=== PATIENT | female | born 1960 | race Caucasian/White ===

== ENCOUNTER 2017-01-26 15:50 | Observation (INO) | payer OTHER ==
[~2017-01-26] VITALS: Ht 160 cm; Wt 71.5 kg
[~2017-01-26 15:50] MED LIST: KETO1SOL3 EACH EYE; LACT20SO4 PO; LANTUS2P SC; LASI20TA PO; NEUR800T PO; TAB-TAB PO; TRAZ50TA4 PO; ULTR50TA PO
[2017-01-26 15:51] VITALS: BP 158/69; PULSE 80; RESP 20; TEMP 97.9; O2SAT 99
--- NOTE | 2017-01-26 16:20 | PD ---
HPI Chief Complaint: Abnormal Results Time Seen by Provider: 16:20 Travel History International Travel<30 days: No Contact w/Intl Traveler<30days: No Traveled to known affect area: No History of Present Illness HPI 56-year-old female with PMH of hypertension, cirrhosis, CKD, [place] presents to the ED for evaluation of "two weeks" history of edema and dyspnea on exertion. The patient denies fevers, cough, chest pain, palpitations, abdominal pain, changes in bowel habits, dysuria or back pain. She endorses a 10-18 pound weight gain over the past 2 weeks which she attributes to excess water. She takes 1 mg of Bumex daily. She states that she was told that her potassium was 3.0 today. She was seen at the [facility] and instructed to report to the ED for further evaluation. PFSH Past Medical History Anemia: Yes Arthritis: Yes (LOWER BACK AND HIP) Asthma: No Blood Disorders: No Anxiety: No Depression: Yes Heart Rhythm Problems: Yes ("MURMUR") Cancer: No Cardiovascular Problems: Yes High Cholesterol: No Chest Pain: No Congestive Heart Failure: Yes ("EARLY STAGES") Cirrhosis: Yes COPD: Yes ("EARLY STAGES") Cerebrovascular Accident: No Diabetes: Yes Diminished Hearing: Yes (TALHA DIMINISHED) Diverticulitis: Yes Endocrine: Yes Gastrointestinal Disorders: Yes (portal hypertensive gastropathy) GERD: Yes Genitourinary: Yes (HEP C, CIRRHOSIS, ASCITES, GALLSTONES, DIVERTICULITIS, ) Headaches: Yes Hepatitis: Yes (HEP C/cured) Hiatal Hernia: No Hypertension: Yes Immune Disorder: No Musculoskeletal: No Neurologic: No Psychiatric: Yes Reproductive: No Respiratory: Yes Immunizations Current: Yes Migraines: No Myocardial Infarction: Yes Seizures: No Sleep Apnea: No Thyroid Disease: No Ulcer: No Menopausal: Yes Past Surgical History Gynecologic Surgery: Yes (HYSTERECTOMY) Hysterectomy: Yes Tonsillectomy: Yes Other Surgery: Yes Social History Alcohol Use: No Tobacco Use: No Substance Use: No Allergies-Medications (Allergen,Severity, Reaction): Coded Allergies: Codeine (Unverified Allergy, Severe, Itching, 01/26/17) Reported Meds & Prescriptions Reported Meds & Active Scripts Active Reported Trazodone (Trazodone HCl) 50 Mg Tab 50 Mg PO HS PRN Tramadol (Tramadol HCl) 50 Mg Tab 50 Mg PO HS Potassium 75 Mg Tab 20 Meq PO DAILY Lactulose Liq (Lactulose (Encephalopathy) Liq) 19 Gm/15 Ml Soln 10 Gm PO BID Gabapentin 800 Mg Tab 800 Mg PO HS Folic Acid 5 Mg Cap 1 Mg PO DAILY Dst Plus Zeb (Diclofenac Sodium (Topical)) 1 % Kit 1 Gm BID D 1000 (Cholecalciferol) 1,000 Unit Chew 1 Tab PO BID Bumetanide 1 Mg Tab 1 Mg PO BID Amlodipine (Amlodipine Besylate) 10 Mg Tab 10 Mg PO DAILY Review of Systems Except as stated in HPI: all other systems reviewed are Neg Physical Exam Narrative GENERAL: Well-nourished, well-developed pleasant white female in no acute distress. SKIN: Focused skin assessment warm/dry. HEAD: Normocephalic. EYES: No scleral icterus. No injection or drainage. NECK: Supple, trachea midline. No JVD or lymphadenopathy. CARDIOVASCULAR: Regular rate and rhythm without murmurs, gallops, or rubs. 2+ DP and radial pulses bilaterally. RESPIRATORY: Breath sounds clear and equal bilaterally. No accessory muscle use. GASTROINTESTINAL: Abdomen soft, non-tender, nondistended. Active bowel sounds. MUSCULOSKELETAL: No cyanosis. 2+ pitting edema to the knee bilaterally. Homans sign negative bilaterally. BACK: Nontender without obvious deformity. No CVA tenderness. Data Data Last Documented VS Vital Signs Date Time Temp Pulse Resp B/P Pulse Ox O2 Delivery O2 Flow Rate FiO2 01/26/17 17:55 75 20 174/74 98 Room Air 01/26/17 15:51 97.9 Orders Complete Blood Count With Diff (01/26/17 16:33) Comprehensive Metabolic Panel (01/26/17 16:33) B-Type Natriuretic Peptide (01/26/17 16:33) Act Partial Throm Time (Ptt) (01/26/17 16:33) Prothrombin Time / Inr (Pt) (01/26/17 16:33) Magnesium (Mg) (01/26/17 16:33) Ckmb (Isoenzyme) Profile (01/26/17 16:33) Troponin I (01/26/17 16:33) Urinalysis - C+S If Indicated (01/26/17 16:33) Iv Access Insert/Monitor (01/26/17 16:33) Electrocardiogram (01/26/17 16:33) Ecg Monitoring (01/26/17 16:33) Oximetry (01/26/17 16:33) Chest, Single Ap (01/26/17 16:33) CKMB (01/26/17 16:30) CKMB% (01/26/17 16:30) Potassium Chloride (Kcl) (01/26/17 17:45) Bumetanide Inj (Bumex Inj) (01/26/17 18:00) Admit Order (Ed Use Only) (01/26/17 18:00) Labs Laboratory Tests Test 01/26/17 16:30 White Blood Count 8.0 TH/MM3 Red Blood Count 3.44 MIL/MM3 Hemoglobin 10.8 GM/DL Hematocrit 30.5 % Mean Corpuscular Volume 88.7 FL Mean Corpuscular Hemoglobin 31.6 PG Mean Corpuscular Hemoglobin 35.6 % Concent Red Cell Distribution Width 13.6 % Platelet Count 300 TH/MM3 Mean Platelet Volume 8.0 FL Neutrophils (%) (Auto) 62.7 % Lymphocytes (%) (Auto) 22.5 % Monocytes (%) (Auto) 10.6 % Eosinophils (%) (Auto) 2.9 % Basophils (%) (Auto) 1.3 % Neutrophils # (Auto) 5.0 TH/MM3 Lymphocytes # (Auto) 1.8 TH/MM3 Monocytes # (Auto) 0.9 TH/MM3 Eosinophils # (Auto) 0.2 TH/MM3 Basophils # (Auto) 0.1 TH/MM3 CBC Comment DIFF FINAL Differential Comment Prothrombin Time 11.5 SEC Prothromb Time International 1.0 RATIO Ratio Activated Partial 26.4 SEC Thromboplast Time Sodium Level 141 MEQ/L Potassium Level 3.2 MEQ/L Chloride Level 105 MEQ/L Carbon Dioxide Level 23.5 MEQ/L Anion Gap 13 MEQ/L Blood Urea Nitrogen 28 MG/DL Creatinine 1.74 MG/DL Estimat Glomerular Filtration 30 ML/MIN Rate Random Glucose 90 MG/DL Calcium Level 10.9 MG/DL Magnesium Level 2.1 MG/DL Total Bilirubin 0.8 MG/DL Aspartate Amino Transf 62 U/L (AST/SGOT) Alanine Aminotransferase 14 U/L (ALT/SGPT) Alkaline Phosphatase 86 U/L Total Creatine Kinase 249 U/L Creatine Kinase MB 2.5 NG/ML Creatine Kinase MB % 1.0 % Troponin I LESS THAN 0.02 NG/ML B-Type Natriuretic Peptide 152 PG/ML Total Protein 7.2 GM/DL Albumin 2.9 GM/DL [facility] Medical Decision Making Medical Screen Exam Complete: Yes Emergency Medical Condition: Yes Interpretation(s) EKG rate 71, sinus rhythm. CA interval 139, QRS 97, QTC 440. Normal axis. No acute ST elevations or depressions. Reviewed by Dr. Reed. Differential Diagnosis Acute on chronic renal failure versus CHF versus PE versus pneumonia versus ascites versus ACS versus cardiomyopathy versus other Narrative Course 56-year-old female with PMH of hypertension, cirrhosis, CKD, [place] presents to the ED for evaluation of "two weeks" history of edema and dyspnea on exertion. The patient denies fevers, cough, chest pain, palpitations, abdominal pain, changes in bowel habits, dysuria or back pain. She endorses a 10-18 pound weight gain over the past 2 weeks which she attributes to excess water. She takes 1 mg of Bumex daily. She states that she was told that her potassium was 3.0 today. She was seen at the [facility] and instructed to report to the ED for further evaluation. Vitals reviewed. Physical exam reveals a pleasant white female in no acute distress. Chest clear to auscultation bilaterally. Abdomen soft, nontender. No CVA tenderness. There is 2+ pitting edema to the knee in bilateral lower extremities. Patient was placed on continuous monitoring. IV was established. CBC: WBC 8.0, hemoglobin 10.8. INR 1.0. Potassium 3.2. Calcium 10.9. CMP: BUN 28, creatinine 1.74. Review of the record reveals this is improved from the patient's baseline. Cardiac enzymes negative 1. BNP 152. CXR: No acute disease per radiology read. EKG as above. Patient is followed by Dr. Nguyen, [place]. Patient was administered 40 meq potassium by mouth and 1 mg Bumex IV. I discussed the patient with Dr. Reed. He recommends admission to the the medicine service for further evaluation, including serial cardiac enzymes, EKGs and LARISSA. Call placed to [facility]. I spoke with Dr. Yarbrough who agrees to accept the patient to the medical service for observation. Please see medicine notes for disposition. Diagnosis Primary Impression: Lower extremity edema Qualified Code: R60.0 - Bilateral edema of lower extremity Additional Impression: Dyspnea on exertion Mary Mcneil Jan 26, 2017 16:20
[2017-01-26] MEDS ORDERED: DICL1KIT3 (16:45)
[2017-01-26] MEDS ORDERED: D 10CHW PO (16:45)
[2017-01-26] MEDS ORDERED: POTA75TA PO (16:45)
[2017-01-26] MEDS ORDERED: BUME1TAB PO (16:45)
[2017-01-26] MEDS ORDERED: AMLO10TA2 PO (16:45)
[2017-01-26] MEDS ORDERED: FOLI5CAP PO (16:45)
[2017-01-26] MEDS ORDERED: GABA800T PO (16:45)
[2017-01-26] MEDS ORDERED: LACT10SO27 PO (16:45)
[2017-01-26] MEDS ORDERED: TRAZ50TA12 PO (16:48)
[2017-01-26] MEDS ORDERED: TRAM50TA PO (16:48)
[2017-01-26 16:51] VITALS: PULSE 80; RESP 22
[2017-01-26 17:01] LABS: BASOPHIL # 0.1 TH/MM3 (0-0.2); BASOPHIL % 1.3 % (0.0-2.0); EOSINOPHIL # 0.2 TH/MM3 (0-0.4); EOSINOPHIL % 2.9 % (0.0-4.0); HEMATOCRIT 30.5 % (35.0-46.0); HEMO FLAGS DIFF FINAL; LYMPH % 22.5 % (9.0-44.0); LYMPHOCYTE # 1.8 TH/MM3 (1.0-4.8); MEAN CELL VOLUME 88.7 FL (80.0-100.0); MEAN CORPUSCULAR HEMOGLOBIN 31.6 PG (27.0-34.0); MEAN CORPUSCULAR HGB CONC 35.6 % (32.0-36.0); MONO % 10.6 % (0.0-8.0); NEUT % 62.7 % (16.0-70.0); PLATELET COUNT 300 TH/MM3 (150-450); RED BLOOD COUNT 3.44 MIL/MM3 (4.00-5.30); RED CELL DISTRIBUTION WIDTH 13.6 % (11.6-17.2)
[2017-01-26 17:22] LABS: ALKALINE PHOSPHATASE 86 U/L (45-117); CREATINE KINASE 249 U/L (26-192); TOTAL BILIRUBIN ADULT 0.8 MG/DL (0.2-1.0)
[2017-01-26 17:26] LABS: ALT (GPT) 14 U/L (10-53); ANION GAP 13 MEQ/L (5-15); AST (GOT) 62 U/L (15-37); BICARBONATE 23.5 MEQ/L (21.0-32.0); BLOOD UREA NITROGEN 28 MG/DL (7-18); CHLORIDE 105 MEQ/L (98-107); GLOMERULAR FILTRATION RATE 30 ML/MIN (>89); MAGNESIUM 2.1 MG/DL (1.5-2.5); POTASSIUM 3.2 MEQ/L (3.5-5.1); SODIUM (NA) 141 MEQ/L (136-145)
[2017-01-26 17:27] LABS: APTT (PATIENT) 26.4 SEC (24.3-30.1); PROTHROMBIN TIME - PATIENT 11.5 SEC (9.8-11.6)
--- NOTE | 2017-01-26 17:29 | RADRPT ---
EXAM DATE/TIME: 01/26/2017 16:54 [facility] COMPARISON: CHEST SINGLE AP, January 13, 2016, 13:01. INDICATIONS : Short of breath MEDICAL HISTORY : liver failure. SURGICAL HISTORY : None. ENCOUNTER: Initial ACUITY: 1 day PAIN SCORE: 0/10 LOCATION: Bilateral chest FINDINGS: A single view of the chest demonstrates the lungs to be symmetrically aerated without evidence of mas s, infiltrate or effusion. The cardiomediastinal contours are unremarkable. Osseous structures are intact. CONCLUSION: No acute disease. Joshua Jimenez MD on January 26, 2017 at 17:26 Board Certified Radiologist. This report was verified electronically.
[2017-01-26 17:35] LABS: CKMB 2.5 NG/ML (0.5-3.6)
[2017-01-26] MEDS ORDERED: POTASSIUM CHLORIDE 20 MEQ CONTROLLED RELEASE TAB PO ONE (17:45)
[2017-01-26 17:55] VITALS: BP 174/74; PULSE 75; RESP 20; O2SAT 98
[2017-01-26] MEDS ORDERED: BUMETANIDE INJ 1 MG/4 ML VIAL IV PUSH ONE (18:00)
--- NOTE | 2017-01-26 18:28 | HHI.HP ---
HPI Service [facility] Primary Care Physician [facility] Admission Diagnosis lower extremity edema, dyspnea on exertion Diagnoses: Chief Complaint: lower extremity edema and dyspean on exertion. Travel History International Travel<30 Days: No Contact w/Intl Traveler <30 Da: No Traveled to Known Affected Are: No History of Present Illness This is a pleasant 56 year-old female past medical history of hypertension, history of heart murmur, cirrhosis of the liver complicated by portal hypertensive gastropathy, chronic hepatitis C treated with Harv[facility] who presented with lower extremity edema and exertional dyspnea that happened 2 weeks ago. Patient stated that she had this happen in the past and it was due to her cirrhosis of the liver. She stated that this was gradual. Denied any change in diet. Denies any chest pain, palpitations, lightheadedness or dizziness. Patient saw PCP today in which she was sent to the emergency department due to abnormal EKG in which she was asymptomatic and lower extremity edema. Patient stated that since she started amlodipine she also noticed a lower extremity edema. Patient was on lisinopril prior and stated that she was taken off of this. Patient also stated that her PCP was going to put her back on spironolactone. Patient also stated that she had a right ear infection and was treated with Augmentin with no improvement. Patient does have allergies. She stated that her right ear sounds muffled but denies any pain or any fevers. Review of Systems Constitutional: DENIES: Diaphoretic episodes, Fatigue, Fever, Weight gain, Weight loss, Chills, Dizziness, Change in appetite, Night Sweats Endocrine: DENIES: Abnorml menstrual pattern, Heat/cold intolerance, Polydipsia , Polyuria, Polyphagia Eyes: DENIES: Blurred vision, Diplopia, Eye inflammation, Eye pain, Vision loss , Photosensitivity, Double Vision Ears, nose, mouth, throat: COMPLAINS OF: Ear Pain, DENIES: Tinnitus, Hearing loss, Vertigo, Nasal discharge, Oral lesions, Throat pain, Hoarseness, Running Nose, Epistaxis, Sinus Pain, Toothache, Odynophagia Respiratory: COMPLAINS OF: Shortness of breath, DENIES: Apneas, Cough, Snoring , Wheezing, Hemoptysis, Sputum production Cardiovascular: COMPLAINS OF: Lower Extremity Edema, DENIES: Chest pain, Palpitations, Syncope, Dyspnea on Exertion, PND, Orthopnea, Claudication Gastrointestinal: DENIES: Abdominal pain, Black stools, Bloody stools, Constipation, Diarrhea, Nausea, Vomiting, Difficulty Swallowing, Anorexia Genitourinary: DENIES: Abnormal vaginal bleeding, Dysmenorrhea, Dyspareunia, Sexual dysfunction, Urinary frequency, Urinary incontinence, Urgency, Hematuria , Dysuria, Nocturia, Vaginal discharge Musculoskeletal: DENIES: Joint pain, Muscle aches, Stiffness, Joint Swelling, Back pain, Neck pain Integumentary: DENIES: Abnormal pigmentation, Pruritus, Rash, Nail changes, Breast masses, Breast skin changes, Nipple discharge Hematologic/lymphatic: DENIES: Bruising, Lymphadenopathy Immunologic/allergic: DENIES: Eczema, Urticaria Neurologic: DENIES: Abnormal gait, Headache, Localized weakness, Paresthesias, Seizures, Speech Problems, Tremor, Poor Balance Psychiatric: DENIES: Anxiety, Confusion, Mood changes, Depression, Hallucinations, Agitation, Suicidal Ideation, Homicidal Ideation, Delusions Past Family Social History Past Medical History Hypertension, history of heart murmur, cirrhosis of liver, chronic hepatitis, portal hypertensive gastropathy, osteoporosis, chronic fatigue syndrome, chronic back pain, diverticular disease, type 2 diabetes insulin-dependent, anemia Past Surgical History Recent kidney biopsy in November. Hysterectomy. Reported Medications Trazodone (Trazodone HCl) 50 Mg Tab 50 Mg PO HS PRN Tramadol (Tramadol HCl) 50 Mg Tab 50 Mg PO HS Potassium 75 Mg Tab 20 Meq PO DAILY Lactulose Liq (Lactulose (Encephalopathy) Liq) 19 Gm/15 Ml Soln 10 Gm PO BID Gabapentin 800 Mg Tab 800 Mg PO HS Folic Acid 5 Mg Cap 1 Mg PO DAILY Dst Plus Zeb (Diclofenac Sodium (Topical)) 1 % Kit 1 Gm BID D 1000 (Cholecalciferol) 1,000 Unit Chew 1 Tab PO BID Bumetanide 1 Mg Tab 1 Mg PO BID Amlodipine (Amlodipine Besylate) 10 Mg Tab 10 Mg PO DAILY Allergies: Coded Allergies: Codeine (Unverified Allergy, Severe, Itching, 01/26/17) Active Ordered Medications Current Medications Potassium Chloride (KCl) 40 meq ONCE ONCE PO Last administered on 01/26/17 18 :06; Start 01/26/17 at 17:45; Stop 01/26/17 at 17:46; Status DC Bumetanide (Bumex Inj) 1 mg ONCE ONCE IV PUSH Last administered on 01/26/17t 18:05; Start 01/26/17 at 18:00; Stop 01/26/17 at 18:11; Status DC Family History Sister has history of heart murmur. Otherwise family members are relatively healthy. Social History Denied any tobacco, alcohol, or illicit drug use. Physical Exam Vital Signs Vital Signs Date Time Temp Pulse Resp B/P Pulse Ox O2 Delivery O2 Flow Rate FiO2 01/26/17 17:55 75 20 174/74 98 Room Air 01/26/17 16:51 80 22 Room Air 01/26/17 16:26 01/26/17 15:51 97.9 80 20 158/69 99 Room Air Physical Exam GENERAL: This is a well-nourished, well-developed patient, in no apparent distress. SKIN: No rashes, ecchymoses or lesions. Cool and dry. HEAD: Atraumatic. Normocephalic. No temporal or scalp tenderness. EYES: Pupils equal round and reactive. Extraocular motions intact. No scleral icterus. No injection or drainage. ENT: Nose without bleeding, purulent drainage or septal hematoma. Throat without erythema, tonsillar hypertrophy or exudate. Uvula midline. Airway patent. NECK: Trachea midline. No JVD or lymphadenopathy. Supple, nontender, no meningeal signs. CARDIOVASCULAR: Regular rate and rhythm positive 3/6 systolic heart murmur. RESPIRATORY: Clear to auscultation. Breath sounds equal bilaterally. No wheezes , rales, or rhonchi. GASTROINTESTINAL: Abdomen soft, non-tender, nondistended. No hepato-splenomegaly , or palpable masses. No guarding. MUSCULOSKELETAL: Extremities without clubbing, cyanosis, . Lower extremity +2 pitting edema up to the knees. No joint tenderness, effusion, or edema noted. No calf tenderness. Negative Homans sign bilaterally. NEUROLOGICAL: Awake and alert. Cranial nerves II through XII intact. Motor and sensory grossly within normal limits. Five out of 5 muscle strength in all muscle groups. Normal speech. Laboratory Laboratory Tests Test 01/26/17 16:30 White Blood Count 8.0 Red Blood Count 3.44 Hemoglobin 10.8 Hematocrit 30.5 Mean Corpuscular Volume 88.7 Mean Corpuscular Hemoglobin 31.6 Mean Corpuscular Hemoglobin 35.6 Concent Red Cell Distribution Width 13.6 Platelet Count 300 Mean Platelet Volume 8.0 Neutrophils (%) (Auto) 62.7 Lymphocytes (%) (Auto) 22.5 Monocytes (%) (Auto) 10.6 Eosinophils (%) (Auto) 2.9 Basophils (%) (Auto) 1.3 Neutrophils # (Auto) 5.0 Lymphocytes # (Auto) 1.8 Monocytes # (Auto) 0.9 Eosinophils # (Auto) 0.2 Basophils # (Auto) 0.1 CBC Comment DIFF FINAL Differential Comment Prothrombin Time 11.5 Prothromb Time International 1.0 Ratio Activated Partial 26.4 Thromboplast Time Sodium Level 141 Potassium Level 3.2 Chloride Level 105 Carbon Dioxide Level 23.5 Anion Gap 13 Blood Urea Nitrogen 28 Creatinine 1.74 Estimat Glomerular Filtration 30 Rate Random Glucose 90 Calcium Level 10.9 Magnesium Level 2.1 Total Bilirubin 0.8 Aspartate Amino Transf 62 (AST/SGOT) Alanine Aminotransferase 14 (ALT/SGPT) Alkaline Phosphatase 86 Total Creatine Kinase 249 Creatine Kinase MB 2.5 Creatine Kinase MB % 1.0 Troponin I LESS THAN 0.02 B-Type Natriuretic Peptide 152 Total Protein 7.2 Albumin 2.9 Result Diagram: 01/26/17 1630 01/26/17 1630 Imaging Last Impressions Chest X-Ray 01/26/17 1633 Signed Impressions: Service Date/Time: December 16:54 - CONCLUSION: No acute disease. Joshua Jimenez MD Assessment and Plan Assessment and Plan 56-year-old female with history of cirrhosis of the liver due to hepatitis C, portal hypertensive gastropathy, type 2 diabetes insulin-dependent, hypertension who presented with lower extreme edema and exertional dyspnea Lower extremity edema/exertional dyspnea -BNP is 152, chest x-rays negative. Patient had echo about a year ago that was relatively normal with ejection fraction of 60-65%. -Albumin is decreased at 2.8. Troponin negative. Labs reviewed and all relatively within normal limits of her baseline. -I'm suspecting symptoms are more from her cirrhosis of the liver. -Home Bumex is 1 mg twice a day. Patient given a dose of 1 mg IV in the ED. Will continue with bumex 1 mg IV twice a day since patient is symptomatic and lower extremity edema is severe. -Strict ins and outs. -We'll need to monitor creatinine. We'll also repeat her echo. Cirrhosis of the liver secondary to hepatitis C, complicated by portal hypertensive gastropathy -Resume home medication. Will also start patient on spironolactone 50 mg by mouth twice a day. Type 2 diabetes insulin-dependent -Patient is on Lantus 10 units at bedtime. -Will substitute with Levemir 10 units at bedtime and put patient on insulin sliding scale. Patient will also be on the hypoglycemia protocol. Hypertension -Uncontrolled. Due to lower extremity edema and some association with amlodipine. Will DC amlodipine. Patient will be on spironolactone. In the past she has had Lasix in which she was taken off of that most likely secondary to her renal failure. -May consider hydralazine versus clonidine if blood pressure is not better control. Right earache -Fluid noted in middle ear but no infection noted. Status post treatment with Augmentin. -Most likely secondary to her allergies. We'll give her Flonase and Claritin. Chronic fatigue syndrome, chronic back pain, osteoporosis -Resume home medication. Chronic kidney disease -Patient is at her baseline. During her last admission her kidneys were around 2.1. -Strict ins and outs. Avoid nephrotoxins. Continue to monitor creatinine. DVT prophylaxis -Heparin renally dosed. Code Status full Discussed Condition With patient and her sister. Elisa Olivares MD Jan 26, 2017 18:28
[2017-01-26] MEDS ORDERED: ONDANSETRON HCL 4 MG/2 ML VIAL IVP PRN (18:30)
[2017-01-26] MEDS: SPIRONOLACTONE 50 MG TAB PO SCH (18:30)
[2017-01-26] MEDS ORDERED: ACETAMINOPHEN 325 MG TAB PO PRN (18:30)
[2017-01-26] MEDS ORDERED: NALOXONE HCL 0.4 MG/ML AMP IV PRN (18:30)
[2017-01-26] MEDS ORDERED: SODIUM CHLORIDE 0.9% FLUSH 10 ML FLUSH IV FLUSH PRN (18:30)
[2017-01-26] MEDS ORDERED: GLUCAGON 1 MG/ML VIAL OTHER PRN (18:45)
[2017-01-26] MEDS ORDERED: DEXTROSE 50% IN WATER 50 ML VIAL(D50) IV PUSH PRN (18:45)
[2017-01-26] MEDS: LORATADINE 10 MG TAB PO SCH (18:45)
[2017-01-26] MEDS: FLUTICASONE PROPIONATE 50 MCG/ACT 16 GM NASAL SPRAY NASAL SCH ×2 (18:45→21:00)
[2017-01-26] MEDS ORDERED: traZODone HCL 50 MG TAB PO PRN (18:45)
[2017-01-26 19:42] VITALS: BP 159/68
[2017-01-26 19:49] LABS: BACTERIA, URINE RARE /hpf; BLOOD, URINE MOD (NEG); COMMENT (UR) CULTURE INDICATED; CULTURE IF INDICATED CULTURE INDICATED; GLUCOSE,URINE 70 mg/dL (NEG); HYALINE CAST, URINE 80 /lpf (RARE); KETONE, URINE NEG (NEG); MUCUS URINE FEW /lpf (OCC); NITRITE,URINE NEG (NEG); SQUAMOUS EPITHELIAL CELL URINE 22 /hpf (0-5)
[2017-01-26 19:51] LABS: URINE COLOR ORANGE (YELLW/STRAW)
[2017-01-26] MEDS ORDERED: INSULIN DETEMIR 100 UNITS/ML VIAL SQ SCH (21:00)
[2017-01-26] MEDS ORDERED: traMADol HCL 50 MG TAB PO SCH (21:00)
[2017-01-26] MEDS ORDERED: GABAPENTIN 400 MG CAP PO SCH (21:00)
--- NOTE | 2017-01-26 21:00 | EKG ---
Date Performed: 01/26/2017 Time Performed: 16:45:56 PTAGE: 56 years EKG: Sinus rhythm NONSPECIFIC T-WAVE ABNORMALITY BORDERLINE ECG COMPARED TO PRIOR ELECTROCARDIOGRAM, R-wave progressio n is less prominent. PREVIOUS TRACING : 02/01/2016 18.06 DOCTOR: Landon Lucero Interpretating Date/Time 01/26/2017 20:58:40
[2017-01-26 21:11] VITALS: BP 151/60; PULSE 76; RESP 18; TEMP 98.4; O2SAT 96
[2017-01-26] MEDS: LACTULOSE SYRUP 20 GM/30 ML CUP PO SCH (21:50)
[2017-01-26] MEDS: HEPARIN SODIUM - SQ 10,000 UNITS/ML VIAL SQ SCH (21:50)
[2017-01-26] MEDS: SODIUM CHLORIDE 0.9% FLUSH 10 ML FLUSH IV FLUSH SCH (21:50)
[2017-01-26] MEDS: CHOLECALCIFEROL (VIT D3) 1000 UNIT TAB PO SCH (21:51)
[2017-01-26] MEDS: INSULIN ASPART SUPPLEMENTAL SCALE SQ SCH (21:52)
[2017-01-27] MEDS ORDERED: CALCIUM CARBONATE 500 MG CHEWABLE TAB CHEW PRN
[2017-01-27 01:22] VITALS: PULSE 65
[2017-01-27 05:53] VITALS: BP 118/79; PULSE 85; RESP 18; TEMP 98.1; O2SAT 97
[2017-01-27] MEDS: INSULIN ASPART SUPPLEMENTAL SCALE SQ SCH ×3 (07:00→16:27)
[2017-01-27 07:21] VITALS: BP 135/61; PULSE 64; RESP 16; TEMP 97.9; O2SAT 98
[2017-01-27 08:05] VITALS: PULSE 65
[2017-01-27] MEDS ORDERED: FOLIC ACID 1 MG TAB PO SCH (09:00)
[2017-01-27] MEDS ORDERED: BUMETANIDE INJ 1 MG/4 ML VIAL IV PUSH SCH (09:00)
[2017-01-27] MEDS ORDERED: POTASSIUM CHLORIDE 20 MEQ CONTROLLED RELEASE TAB PO SCH (09:00)
[2017-01-27] MEDS: LACTULOSE SYRUP 20 GM/30 ML CUP PO SCH (10:25)
[2017-01-27] MEDS: FLUTICASONE PROPIONATE 50 MCG/ACT 16 GM NASAL SPRAY NASAL SCH (10:25)
[2017-01-27] MEDS: HEPARIN SODIUM - SQ 10,000 UNITS/ML VIAL SQ SCH (10:26)
[2017-01-27] MEDS: SPIRONOLACTONE 50 MG TAB PO SCH (10:26)
[2017-01-27] MEDS: CHOLECALCIFEROL (VIT D3) 1000 UNIT TAB PO SCH (10:26)
[2017-01-27] MEDS: LORATADINE 10 MG TAB PO SCH (10:27)
[2017-01-27] MEDS: SODIUM CHLORIDE 0.9% FLUSH 10 ML FLUSH IV FLUSH SCH (10:27)
[2017-01-27 11:23] VITALS: BP 131/62; PULSE 67; RESP 17; TEMP 97.7; O2SAT 99
[2017-01-27 12:21] LABS: HEMATOCRIT 31.2 % (35.0-46.0); MEAN CELL VOLUME 89.8 FL (80.0-100.0); MEAN CORPUSCULAR HEMOGLOBIN 31.6 PG (27.0-34.0); MEAN CORPUSCULAR HGB CONC 35.1 % (32.0-36.0); PLATELET COUNT 277 TH/MM3 (150-450); RED BLOOD COUNT 3.48 MIL/MM3 (4.00-5.30); RED CELL DISTRIBUTION WIDTH 14.1 % (11.6-17.2); REVIEW FLAG FINAL; WHITE BLOOD COUNT 7.1 TH/MM3 (4.0-11.0)
[2017-01-27 12:46] LABS: BICARBONATE 28.7 MEQ/L (21.0-32.0); POTASSIUM 3.4 MEQ/L (3.5-5.1)
[2017-01-27] MEDS ORDERED: FLUT50SP NASAL (14:20)
[2017-01-27] MEDS ORDERED: ALDA50TA2 PO (14:20)
[2017-01-27] MEDS ORDERED: LORA-361 PO (14:20)
--- NOTE | 2017-01-27 14:21 | HHI.DCPOC ---
Discharge Care Plan Diagnosis: (1) Lower extremity edema (2) Chronic kidney disease (3) Hx of hepatitis C (4) Cirrhosis of liver (5) Earache on right (6) Dyspnea on exertion Goals to Promote Your Health * To prevent worsening of your condition and complications * To maintain your health at the optimal level Directions to Meet Your Goals Take your medications as prescribed Follow your dietary instruction Follow activity as directed Keep your appointments as scheduled Take your immunizations and boosters as scheduled If your symptoms worsen call your PCP, if no PCP go to Urgent Care Center or Emergency Room Smoking is Dangerous to Your Health. Avoid second hand smoke Call the 24-hour hour crisis hotline for domestic abuse at Elisa Olivares MD Jan 27, 2017 14:21
--- NOTE | 2017-01-27 14:22 | HHI.DS ---
Discharge Summary Admission Date Jan 26, 2017 at 18:02 Discharge Date: Jan 27, 2017 Admitting Diagnosis lower extremity edema, dyspnea on exertion (1) Dyspnea on exertion ICD Code: R06.09 Diagnosis: Principal (2) Chronic kidney disease ICD Code: N18.9 Diagnosis: Secondary (3) Lower extremity edema ICD Code: R60.0 Diagnosis: Principal (4) Hx of hepatitis C ICD Code: Z86.19 Diagnosis: Secondary (5) Earache on right ICD Code: H92.01 Diagnosis: Secondary (6) HTN (hypertension) ICD Code: I10 Diagnosis: Principal Procedures ECHO Brief History - From Admission This is a pleasant 56 year-old female past medical history of hypertension, history of heart murmur, cirrhosis of the liver complicated by portal hypertensive gastropathy, chronic hepatitis C treated with Harvoni who presented with lower extremity edema and exertional dyspnea that happened 2 weeks ago. Patient stated that she had this happen in the past and it was due to her cirrhosis of the liver. She stated that this was gradual. Denied any change in diet. Denies any chest pain, palpitations, lightheadedness or dizziness. Patient saw PCP today in which she was sent to the emergency department due to abnormal EKG in which she was asymptomatic and lower extremity edema. Patient stated that since she started amlodipine she also noticed a lower extremity edema. Patient was on lisinopril prior and stated that she was taken off of this. Patient also stated that her PCP was going to put her back on spironolactone. Patient also stated that she had a right ear infection and was treated with Augmentin with no improvement. Patient does have allergies. She stated that her right ear sounds muffled but denies any pain or any fevers. CBC/BMP: 01/27/17 1206 01/27/17 1206 Significant Findings Laboratory Tests Test 01/26/17 01/26/17 01/26/17 01/27/17 16:30 19:10 22:45 04:22 Red Blood Count 3.44 MIL/MM3 (4.00-5.30) Hemoglobin 10.8 GM/DL (11.6-15.3) Hematocrit 30.5 % (35.0-46.0) Monocytes (%) (Auto) 10.6 % (0.0-8.0) Potassium Level 3.2 MEQ/L (3.5-5.1) Blood Urea Nitrogen 28 MG/DL (7-18) Creatinine 1.74 MG/DL (0.50-1.00) Estimat Glomerular Filtration 30 ML/MIN (>89) Rate Calcium Level 10.9 MG/DL (8.5-10.1) Aspartate Amino Transf 62 U/L (15-37) (AST/SGOT) Total Creatine Kinase 249 U/L (26-192) Troponin I LESS THAN 0.02 LESS THAN 0.02 LESS THAN 0.02 NG/ML NG/ML NG/ML (0.02-0.05) (0.02-0.05) (0.02-0.05) B-Type Natriuretic Peptide 152 PG/ML (0-100) Albumin 2.9 GM/DL (3.4-5.0) Urine Color ORANGE (YELLW/STRAW) Urine Turbidity CLOUDY (CLEAR) Urine Protein 300 mg/dL (NEG-TRACE) Urine Glucose (UA) 70 mg/dL (NEG) Urine Occult Blood MOD (NEG) Urine RBC 11 /hpf (0-3) Urine WBC 9 /hpf (0-5) Urine Bacteria RARE /hpf (NONE) Urine Mucus FEW /lpf (OCC) Test 01/27/17 12:06 Red Blood Count 3.48 MIL/MM3 (4.00-5.30) Hemoglobin 11.0 GM/DL (11.6-15.3) Hematocrit 31.2 % (35.0-46.0) Potassium Level 3.4 MEQ/L (3.5-5.1) Blood Urea Nitrogen 29 MG/DL (7-18) Creatinine 1.79 MG/DL (0.50-1.00) Estimat Glomerular Filtration 29 ML/MIN (>89) Rate Random Glucose 130 MG/DL (74-106) Imaging Last Impressions Chest X-Ray 01/26/17 1633 Signed Impressions: Service Date/Time: December 16:54 - CONCLUSION: No acute disease. Joshua Jimenez MD PE at Discharge GENERAL: in NAD NECK: Supple, trachea midline. No JVD or lymphadenopathy. CARDIOVASCULAR: Regular rate and rhythm without murmurs, gallops, or rubs. RESPIRATORY: Breath sounds equal bilaterally. No accessory muscle use. GASTROINTESTINAL: Abdomen soft, non-tender, nondistended. MUSCULOSKELETAL: No cyanosis. +trace pitting edema of LE up to knee. BACK: Nontender without obvious deformity. No CVA tenderness. Pt update on day of discharge patient stated she feels better but feels like the UOP is the same. Denied any SOB. LE edema improved drastically. she stated by the end of the day it will swell up again. Patient has no other complaints. Hospital Course 56-year-old female with history of cirrhosis of the liver due to hepatitis C, portal hypertensive gastropathy, type 2 diabetes insulin-dependent, hypertension who presented with lower extreme edema and exertional dyspnea Lower extremity edema/exertional dyspnea -BNP is 152, chest x-rays negative. Patient had echo about a year ago that was relatively normal with ejection fraction of 60-65%. -Albumin is decreased at 2.8. Troponin negative. Labs reviewed and all relatively within normal limits of her baseline. -I'm suspecting symptoms are more from her cirrhosis of the liver or kidneys. She did have a kidney biopsy due to proteinuria from her sales promotion director. -Home Bumex is 1 mg twice a day. Patient given a dose of 1 mg IV in the ED and continue with bumex 1 mg IV twice a day since patient is symptomatic and lower extremity edema is severe. -Strict ins and outs. -LE improved drastically next day. ECHO was unremarkable. -f/u with her sales promotion director. Cirrhosis of the liver secondary to hepatitis C, complicated by portal hypertensive gastropathy -Resume home medication. patient started on spironolactone 50 mg by mouth twice a day. Type 2 diabetes insulin-dependent -continue home meds with levemir substitute. put patient on insulin sliding scale. Patient will also be on the hypoglycemia protocol. Hypertension -Uncontrolled. Due to lower extremity edema and some association with amlodipine. Will DC amlodipine. Patient will be on spironolactone. In the past she was on lisinopril in which she was taken off of that most likely secondary to her renal failure. -if proteinuria i would think she would benefit from arbs or raisa. patient told to f/u wit her sales promotion director for this or her PCP. -BP controlled with spironolactone. Right earache -Fluid noted in middle ear but no infection noted. Status post treatment with Augmentin. -Most likely secondary to her allergies. she was given Flonase and Claritin. Chronic fatigue syndrome, chronic back pain, osteoporosis -Resume home medication. Chronic kidney disease -Patient is at her baseline. During her last admission her kidneys were around 2.1. -Strict ins and outs. Avoid nephrotoxins. Continue to monitor creatinine. Pt Condition on Discharge: Stable Discharge Disposition: Discharge Home Discharge Time: > 30 minutes Discharge Instructions DIET: Follow Instructions for: Heart Healthy Diet Additional Diet Instructions: 2L fluid restriction Activities you can perform: Regular-No Restrictions Follow up Referrals: Nephrology - 2 Weeks PCP Follow-up - 1 Week New Medications: Fluticasone Nasal [place] (Fluticasone Nasal [place]) 50 Mcg/Act Naspr 1 SPRAY NASAL BID earache #1 Ref 0 BOTTLE Loratadine (Claritin) 10 Mg Tab 10 MG PO DAILY allergies #15 TAB Spironolactone (Aldactone) 50 Mg Tab 50 MG PO BID@,18 hypertension/cirrhosis #60 Ref 0 TAB Continued Medications: Bumetanide (Bumetanide) 1 Mg Tab 1 MG PO BID #0 Ref 0 TAB Cholecalciferol (D 1000) 1,000 Unit Chew 1 TAB PO BID Folic Acid (Folic Acid) 5 Mg Cap 1 MG PO DAILY Nutritional Supplement Ref 0 CAP Gabapentin (Gabapentin) 800 Mg Tab 800 MG PO HS #90 Ref 0 TAB Lactulose (Encephalopathy) Liq (Lactulose Liq) 19 Gm/15 Ml Soln 10 GM PO BID Potassium (Potassium) 75 Mg Tab 20 MEQ PO DAILY Tramadol (Tramadol) 50 Mg Tab 50 MG PO HS PAIN Ref 0 TAB Trazodone (Trazodone) 50 Mg Tab 50 MG PO HS PRN SLEEP #30 Ref 0 TAB Discontinued Medications: Amlodipine (Amlodipine) 10 Mg Tab 10 MG PO DAILY Blood Pressure Management #30 Ref 0 TAB Diclofenac Sodium (Topical) (Dst Plus Zeb) 1 % Kit 1 GM BID Elisa Olivares MD Jan 27, 2017 14:22
[2017-01-27] MEDS ORDERED: POTASSIUM CHLORIDE 20 MEQ CONTROLLED RELEASE TAB PO ONE (14:30)
--- NOTE | 2017-01-27 15:27 | EC ---
Study Study Date:01/27/2017 STUDY CONCLUSIONS SUMMARY - Left ventricle: The cavity size was normal. Wall thickness was normal. Systolic function was normal. The estimated ejection fraction was 60%. Wall motion was normal; there were no regional wall motion abnormalities. - Mitral valve: Mild regurgitation. If LV function is below 40, please consider prescribing an ACEI or ARB or document rationale for non-use. PROCEDURE DATA STUDY STATUS: Elective. Procedure: Transthoracic echocardiography. Image quality was good. Scanning was performed from the parasternal, apical, and subcostal acoustic windows. Study completion: The patient tolerated the procedure well. Transthoracic echocardiography. M-mode, complete 2D, complete spectral Doppler, and color Doppler. Patient status: Inpatient. CARDIAC ANATOMY LEFT VENTRICLE: The cavity size was normal. Wall thickness was normal. Systolic function was normal. The estimated ejection fraction was 60%. Wall motion was normal; there were no regional wall motion abnormalities. AORTIC VALVE: Trileaflet; normal thickness leaflets. Doppler: Transvalvular velocity was within the normal range. There was no stenosis. No regurgitation. Peak gradient: 21mm Hg (S). AORTA: Aortic root: The aortic root was normal in size. MITRAL VALVE: Structurally normal valve. Doppler: Transvalvular velocity was within the normal range. There was no evidence for stenosis. Mild regurgitation. Peak gradient: 3mm Hg (D). LEFT ATRIUM: The atrium was normal in size. RIGHT VENTRICLE: The cavity size was normal. Wall thickness was normal. PULMONIC VALVE: Doppler: Transvalvular velocity was within the normal range. There was no evidence for stenosis. No regurgitation. TRICUSPID VALVE: Structurally normal valve. Doppler: Transvalvular velocity was within the normal range. Trace regurgitation. PULMONARY ARTERY: The main pulmonary artery was normal-sized. Systolic pressure was within the normal range. RIGHT ATRIUM: The atrium was normal in size. PERICARDIUM: There was no pericardial effusion. SYSTEMIC VEINS: Inferior vena cava: The vessel was normal in size. BASIC MEASUREMENTS ADULT Normal Left ventricle LV internal dimension, ED, chordal level, 49.9 mm 43-52 PLAX LV internal dimension, ES, chordal level, 36 mm 23-38 PLAX Fractional shortening, chordal level, PLAX *28 % >29 LV posterior wall thickness, ED 6.83 mm IVS/LVPW ratio, ED *1.33 <1.3 Ventricular septum Septal thickness, ED 9.07 mm Aortic valve Leaflet separation 18 mm 15-26 Left atrium Anterior-posterior dimension 36 mm Right ventricle RV internal dimension, ED, PLAX 19.3 mm 19-38 BASIC MEASUREMENTS ADULT Normal Aortic valve Leaflet separation 18 mm 15-26 Aorta Root diameter, ED 27 mm 20-37 DOPPLER MEASUREMENTS ADULT Normal Aortic valve Peak velocity, S 227 cm/s Peak gradient, S 21 mm Hg Mitral valve Peak E-wave velocity 83 cm/s Peak A-wave velocity 89.8 cm/s Peak gradient, D 3 mm Hg Peak E/A ratio 0.9 Tricuspid valve Regurgitant peak velocity 307 cm/s Peak RV-RA gradient, S 38 mm Hg Maximal regurgitant velocity 307 cm/s LEGEND: Mean values are shown as u=mean value. Asterisk (*) szymanski values outside specified normal range. Prepared and signed by Verena Butterfield [id number]
[2017-01-27 16:08] VITALS: BP 161/70; PULSE 69; RESP 16; TEMP 98.6; O2SAT 98
== END 2017-01-27 17:15 | disposition home or self-care (01) ==
LOC: NEPE 15:50 → NEDA 18:02 → NEPGCP 19:43
PROVIDERS: ADMIT Family Medicine; ATTEND Family Medicine
DX: R06.00 Dyspnea, unspecified (principal); R60.0 Localized edema; B18.2 Chronic viral hepatitis C; K74.60 Unspecified cirrhosis of liver; K76.6 Portal hypertension; K31.89 Other diseases of stomach and duodenum; H92.01 Otalgia, right ear; R53.82 Chronic fatigue, unspecified; E11.22 Type 2 diabetes mellitus with diabetic chronic kidney disease; I13.0 Hypertensive heart and chronic kidney disease with heart failure and stage 1 through stage 4 chronic kidney disease, or unspecified chronic kidney disease; N18.9 Chronic kidney disease, unspecified; I50.9 Heart failure, unspecified; M81.0 Age-related osteoporosis without current pathological fracture; M54.9 Dorsalgia, unspecified; G89.29 Other chronic pain; I25.2 Old myocardial infarction; J44.9 Chronic obstructive pulmonary disease, unspecified; F32.9 Major depressive disorder, single episode, unspecified; H91.93 Unspecified hearing loss, bilateral; K21.9 Gastro-esophageal reflux disease without esophagitis; M16.10 Unilateral primary osteoarthritis, unspecified hip; Z79.4 Long term (current) use of insulin; Z88.5 Allergy status to narcotic agent
CPT/HCPCS: 71010; 80048; 80053; 81001; 82550; 82552; 82948; 83735; 83880; 84484; 85025; 85027; 85610; 85730; 87086; 93005; 93306; 99285; G0378; J1644; J1815; J2405

== ENCOUNTER 2018-09-15 15:34 | Inpatient (IN) ==
[2018-09-15] MEDS ORDERED: hydrALAZINE HCl Inj 20 MG/ML Vial IV.PUSH ONE (15:59)
--- NOTE | 2018-09-15 16:08 | ED ---
HPI General Chief Complaint: Dizziness Stated Complaint: neuro Time Seen by Provider: 09/15/18 15:48 Source: patient and RN notes reviewed Mode of arrival: ambulatory Limitations: no limitations History of Present Illness HPI Narrative: 58-year-old female presents to the emergency department for evaluation of dizziness, confusion. Patient states she has had chronic dizziness for several years. However, has worsened since yesterday. She also reports confusion which is abnormal for her. She believes this started yesterday. She answers questions appropriately, but does not know the year. She denies any headache. No chest pain or shortness of breath. She denies any abdominal pain. No nausea, vomiting, diarrhea. She has history of hepatitis and took Harvoni treatment. She states that during the Harvoni treatment she would have intermittent confusion. She states that now she has cirrhosis of the liver and kidney disease from the treatment. She also reports history of hypertension. She denies being on anticoagulants. She states she did take her blood pressure medications this morning, but is slightly confused. She denies any new weakness. She reports some chronic weakness of the right lower extremity. She also reports chronic bilateral lower extremity edema. Moderate severity. She denies any pain. MD complaint: Reports dizziness and lightheadedness Onset (ago): day(s) Timing: unsure Description: Reports lightheadedness and off-balance History of similar episodes: Yes History of trauma: No Severity: moderate Relieving factors: nothing Exacerbating factors: nothing Associated symptoms: Reports confusion and weakness; Denies ataxia, chest pain, diaphoresis, fever, chills, malaise, rash, shortness of breath, syncope, vision changes, nausea and vomiting Related Data Home Medications Medication Instructions Recorded Confirmed Unable to Obtain Home Meds 09/15/18 09/15/18 Allergies Allergy/AdvReac Type Severity Reaction Status Date / Time codeine Allergy Severe Itching Verified 09/15/18 15:46 Review of Systems ROS: all other systems reviewed are negative [facility] Medical History Medical History Anxiety (Acute) Cirrhosis (Acute) Depression (Acute) Diabetes (Acute) Heart murmur (Acute) Hepatitis C (Acute) Hypertension (Acute) Renal insufficiency (Acute) Social History Social History Substance History: No History of Abuse Smoking Status: Former smoker How Often Do You Have a Drink Containing Alcohol: Never Recent Travel in [facility] within the Last 8 Weeks: No Recent Out of Country Travel within the Last 8 Weeks: No Immunization History Tetanus Immunization: <5 Years Exam Narrative Exam Narrative: GENERAL: Well-nourished, well-developed female patient, ambulatory. Afebrile. Patient alert oriented answers questions appropriately. However, she does not know the year. SKIN: Focused skin assessment warm/dry. HEAD: Normocephalic. Atraumatic. EYES: No scleral icterus. No injection or drainage. PERRLA. EOM intact. NECK: Supple, trachea midline. No JVD or lymphadenopathy. CARDIOVASCULAR: Regular rate and rhythm without murmurs, gallops, or rubs. RESPIRATORY: Breath sounds equal bilaterally. No accessory muscle use. Lung sounds are clear to auscultation. GASTROINTESTINAL: Abdomen soft, non-tender, nondistended. MUSCULOSKELETAL: No cyanosis, or edema. Patient has some slight weakness of the bilateral lower extremities. BACK: Nontender without obvious deformity. No CVA tenderness. NEUROLOGICAL: Awake and alert. Cranial nerves II through XII intact. Motor and sensory grossly within normal limits. Bilateral lower extremities 4/5 strength. Five out of 5 muscle strength in upper extremities. Normal speech. Finger to nose is normal bilaterally. [id number] is normal bilaterally. Course Initial Documented Vital Signs Temperature 97.6 F 09/15/18 15:36 Pulse Rate 59 L 09/15/18 15:36 Respiratory Rate 20 09/15/18 15:36 Blood Pressure 242/102 H 09/15/18 15:36 Pulse Oximetry 99 09/15/18 15:36 Last Documented Vital Signs Temperature 97.6 F 09/15/18 15:36 Pulse Rate 68 09/15/18 17:55 Respiratory Rate 16 09/15/18 17:55 Blood Pressure 190/91 H 09/15/18 17:55 Pulse Oximetry 95 09/15/18 17:55 Medical Decision Making MDM Narrative Medical decision making narrative: 58-year-old female presents to the emergency department for evaluation of dizziness and confusion. EKG, CBC, CMP, CK, troponin, magnesium, PTT, PT/INR, UA ordered and pending. Chest x-ray, CT of the brain are ordered and pending. Patient is given hydralazine 20 mg IV for hypertension. EKG shows sinus bradycardia, HR 53, no acute ST changes. CBC shows slight anemia of 10.8/29.4. CMP shows elevated BUN 35, creatinine of 3.74, new since previous BUN of 29, creatinine of 1.79 in 01/16. CK is 76. Troponin is less than 0.02. Magnesium is 1.4. PTT is 26.1. PT/INR is 11.0/1.1. Chest x-ray shows Small left pleural effusion not present previously with slight consolidation and/or compressive collapse left lung base medially. CT of the brain is unremarkable. CT of the chest without contrast is ordered and shows Bilateral pleural effusions worse on the left with slight left lung base compressive collapse; Cholelithiasis; Cirrhotic liver with moderate amount of ascites upper abdomen. Patient is given ASA 162 mg PO. Will be admitted for further evaluation for acute kidney injury, pleural effusions, dizziness, confusion. Medical Screen Exam Complete: Yes Emergency Medical Condition: Yes Differential Diagnosis Differential Diagnosis: TIA versus CVA versus hypertension versus encephalopathy versus metabolic abnormality Medical Records Medical records reviewed: Yes I reviewed the patient's medical records. Lab Data Result diagrams: 09/15/18 16:05 09/15/18 16:05 Lab Results 09/15/18 09/15/18 09/15/18 Range/Units 16:05 16:05 16:05 CBC w Diff Director [place] [employer] WBC 5.8 (4.0-11.0) th/mm3 RBC 3.13 L (4.00-5.30) mil/mm3 Hgb 10.8 L (11.6-15.3) gm/dL Hct 29.4 L (35.0-46.0) % MCV 93.8 (80.0-100.0) fL MCH 34.3 H (27.0-34.0) pg MCHC 36.6 H (32.0-36.0) % RDW 15.4 (11.6-17.2) % Plt Count 160 (150-450) th/mm3 MPV 8.2 (7.0-11.0) fL Neut % (Auto) 66.1 (16.0-70.0) % Lymph % (Auto) 20.6 (9.0-44.0) % [place] % (Auto) 6.2 (0.0-8.0) % Eos % (Auto) 4.9 H (0.0-4.0) % Baso % (Auto) 2.2 H (0.0-2.0) % Neut # (Auto) 3.8 (1.8-7.7) th/mm3 Lymph # (Auto) 1.2 (1.0-4.8) th/mm3 [place] # (Auto) 0.4 (0.0-0.9) th/mm3 Eos # (Auto) 0.3 (0.0-0.4) th/mm3 Baso # (Auto) 0.1 (0.0-0.2) th/mm3 WBC Differential . Differential Comment Auto diff final PT 11.0 (9.8-11.6) sec INR 1.1 Ratio APTT 26.1 (23.4-31.7) sec Sodium 143 (136-145) meq/L Potassium 3.5 (3.5-5.1) meq/L Chloride 110 H (98-107) meq/L Carbon Dioxide 24.5 (21.0-32.0) meq/L Anion Gap 9 (5-15) meq/L BUN 35 H (7-18) mg/dL Creatinine 3.74 H (0.50-1.00) mg/dL Estimated GFR 12 L (>89) mL/min Random Glucose 94 (74-106) mg/dL Calcium 11.2 H (8.5-10.1) mg/dL Magnesium 1.4 L (1.5-2.5) mg/dL Total Bilirubin 0.9 (0.2-1.0) mg/dL AST 38 H (15-37) U/L ALT 12 (10-53) U/L Alkaline Phosphatase 69 (45-117) U/L Total Creatine Kinase 76 (26-192) U/L Troponin I Less than 0.02 L (0.02-0.05) ng/mL Total Protein 6.4 (6.4-8.2) g/dL Albumin 2.4 L (3.4-5.0) g/dL Imaging Data Radiologist's impression: Head CT 09/15/18 15:59 CONCLUSION: Unremarkable study. Chest X-Ray 09/15/18 16:01 CONCLUSION: Small left pleural effusion not present previously with slight consolidation and/or compressive collapse left lung base medially. Chest CT 09/15/18 17:00 CONCLUSION: 1. Bilateral pleural effusions worse on the left with slight left lung base compressive collapse. 2. Cholelithiasis. 3. Cirrhotic liver with moderate amount of ascites upper abdomen. Discharge Plan Discharge Disposition Patient Disposition: ED Admit(ED Internal Use Only) Discharge Order Discharge Orders: ED Use Only Admit Order (Routine); Ordered 09/15/18 Ordered By: Denae Alfredo Discharge Details Diagnosis: Acute kidney injury, Pleural effusion, Dizziness, Acute confusion Physicians Team ED Provider: Simon Garcia ED Midlevel Provider: Denae Alfredo Primary Care Provider: [facility] Attending Provider: Tamica Batres Status ED Status: Admitted Patient
[2018-09-15 16:29] LABS: Baso # (Auto) 0.1 th/mm3 (0.0-0.2); Baso % (Auto) 2.2 % (0.0-2.0); Eos # (Auto) 0.3 th/mm3 (0.0-0.4); Eos % (Auto) 4.9 % (0.0-4.0); Hematocrit 29.4 % (35.0-46.0); Hemoglobin 10.8 gm/dL (11.6-15.3); Lymph # (Auto) 1.2 th/mm3 (1.0-4.8); Lymph % (Auto) 20.6 % (9.0-44.0); Mean Corpuscular Hemoglobin 34.3 pg (27.0-34.0); Mean Corpuscular Volume 93.8 fL (80.0-100.0); Mean Platelet Volume 8.2 fL (7.0-11.0); Mono # (Auto) 0.4 th/mm3 (0.0-0.9); Mono % (Auto) 6.2 % (0.0-8.0); Neut # (Auto) 3.8 th/mm3 (1.8-7.7); Neut % (Auto) 66.1 % (16.0-70.0); Platelet Count 160 th/mm3 (150-450); Red Blood Count 3.13 mil/mm3 (4.00-5.30); Red Cell Distribution Width 15.4 % (11.6-17.2); White Blood Count 5.8 th/mm3 (4.0-11.0)
[2018-09-15 16:31] LABS: Mean Corpuscular HGB Conc 36.6 % (32.0-36.0)
--- NOTE | 2018-09-15 16:35 | CT ---
EXAM DATE: 09/15/2018 4:26 PM EST AGE/SEX: 58 years / Female INDICATIONS: Dizziness for one day. CLINICAL DATA: This is the patient's initial encounter. Patient reports that signs and symptoms have been present for 1 day and indicates a pain score of 5/10. MEDICAL/SURGICAL HISTORY: Diabetes mellitus type II. Hepatitis C. Hypertension. None. RADIATION DOSE: 56.45 CTDI (mGy) [place] [facility] [place]. . TECHNIQUE: CT of the head without contrast. Using automated exposure control and adjustment of the mA and/or kV according to patient size, radiation dose was kept as low as reasonably achievable to ob tain optimal diagnostic quality images. DICOM format image data is available electronically for revi ew and comparison. FINDINGS: There is no evidence for intracranial hemorrhage, mass effect, mass lesions, edema, or extra-axial fl uid collections. The visualized bony structures appear intact. The ventricles are normal size for t he patient's age. There are no signs of acute infarction for technique. CONCLUSION: Unremarkable study. Electronically signed by: Kerri Velasco MD Board Certified Radiologist 09/15/2018 4:34 PM EST
[2018-09-15 16:37] LABS: Activated Partial Thrombo Time 26.1 sec (23.4-31.7); INR 1.1 Ratio
--- NOTE | 2018-09-15 16:49 | XR ---
EXAM DATE: 09/15/2018 4:35 PM EST AGE/SEX: 58 years / Female INDICATIONS: Syncope. CLINICAL DATA: This is the patient's initial encounter. Patient reports that signs and symptoms have been present for 2 days and indicates a pain score of 0/10. MEDICAL/SURGICAL HISTORY: Hypertension. Diabetes mellitus type II. Hepatitis C. Cirrhosis. H eart murmur. Renal insufficiency. None. COMPARISON: [facility] – [place], CHEST SINGLE AP, 01/26/2017. . FINDINGS: Left pleural effusion is present in the left lung base consolidation and/or compressive col lapse. Heart and mediastinum are unremarkable. CONCLUSION: Small left pleural effusion not present previously with slight consolidation and/or compr essive collapse left lung base medially. Electronically signed by: Kerri Velasco MD Board Certified Radiologist 09/15/2018 4:47 PM EST
[2018-09-15 16:58] LABS: Albumin 2.4 g/dL (3.4-5.0); Anion Gap 9 meq/L (5-15); Aspartate Aminotransferase 38 U/L (15-37); Blood Urea Nitrogen 35 mg/dL (7-18); Calcium 11.2 mg/dL (8.5-10.1); Carbon Dioxide 24.5 meq/L (21.0-32.0); Chloride 110 meq/L (98-107); Glomerular Filtration Rate 12 mL/min (>89); Glucose,Random 94 mg/dL (74-106); Magnesium 1.4 mg/dL (1.5-2.5); Potassium 3.5 meq/L (3.5-5.1); Sodium 143 meq/L (136-145)
[2018-09-15 16:59] LABS: Alanine Aminotransferase 12 U/L (10-53)
[2018-09-15 17:03] LABS: Alkaline Phosphatase 69 U/L (45-117); Total Protein 6.4 g/dL (6.4-8.2)
[2018-09-15 17:04] LABS: Creatine Kinase 76 U/L (26-192)
--- NOTE | 2018-09-15 17:29 | CT ---
EXAM DATE: 09/15/2018 5:21 PM EST AGE/SEX: 58 years / Female INDICATIONS: Short of breath. CLINICAL DATA: This is the patient's initial encounter. Patient reports that signs and symptoms have been present for 1 day and indicates a pain score of 2/10. MEDICAL/SURGICAL HISTORY: Hepatitis C. Cirrhosis. Diabetes mellitus type II. None. RADIATION DOSE: 7.47 CTDI (mGy) COMPARISON: [facility], CHEST 1V SINGLE AP, 09/15/2018. . TECHNIQUE: Multiple contiguous axial images were obtained through the chest without contrast. Image s were obtained in suspended respiration using multiple row detector helical technique. Using automa jim exposure control and adjustment of the mA and/or kV according to patient size, radiation dose was kept as low as reasonably achievable to obtain optimal diagnostic quality images. DICOM format imag e data is available electronically for review and comparison. FINDINGS: There is slight compressive collapse left lung base. No appreciable pathological adenopathy is seen within the mediastinum. Coronary artery calcifications are seen typically seen with coronary artery disease and clinical ricki elation and evaluation is suggested. Gallstones are present within the gallbladder without signs of cholecystitis for technique. The live r appears cirrhotic and there is ascites in the upper abdomen to a moderate degree. Small right pleur al effusion is present with moderate left pleural effusion. CONCLUSION: 1. Bilateral pleural effusions worse on the left with slight left lung base compressive collapse. 2. Cholelithiasis. 3. Cirrhotic liver with moderate amount of ascites upper abdomen. Electronically signed by: Kerri Velasco MD Board Certified Radiologist 09/15/2018 5:28 PM EST
--- NOTE | 2018-09-15 18:25 | P.HPFP ---
History of Present Illness Primary Care Physician: [facility] History of Present Illness: 58-year-old female with a history of hypertension, CKD, liver cirrhosis, diabetes, anxiety, known congenital heart murmur, history of hepatitis C who presented to the emergency room for altered mental status. Patient's sister and [id number] are present who assist in providing history. Patient was in her normal state of health recently went on a trip to [place] with her sister and [id number]. They drove home from [place] yesterday with no complications and patient went to her own condo on the night prior to admission with normal mentation. During the trip she did have a mechanical fall and injured her jaw but didn't have any change in mentation. The sister reports that the patient normally texts her morning BP, BG to her but she failed to do so this morning. This is unusual for her so the sister began to text questions and the patient's responses were very confusing and did not make sense. At that time the sister went to evaluate the patient and she was found to be confused. The patient seemed to have difficulty finding words/verbalizing words and was having poor recollection of the events from the most recent trip. There was no notable facial droop, abnormal weakness or other findings at that time. At baseline she has LLE weakness compared to the R and that hasn't changed dramatically. Otherwise no noticed focal area of weakness/change in sensation No fevers, no significant cough, SOB, chest pain, sore throat, she does have a history of occasional abdominal distention/swelling which is present but not as bad as it has been, no new abdominal pain. She feels edematous in her hands/ legs. No dysuria or malodorous urine Has hepatitis C, treated with Harvoni several years ago. Subsequently developed liver cirrhosis, DM, kidney disease PMH: HTN, hepatitis C, diabetes, liver cirrhosis, CKD, depression Psurgical: hysterectomy, renal biopsy Family hx: congenital heart murmurs Social: Lives alone in a condo in [place]. Her sister and [id number] live in a condo nearby. No alcohol, tobacco, drugs - Diagnosis (1) Altered mental status (2) Hypertensive urgency (3) Eoxuq-ha-pawaamz kidney injury (4) Pleural effusion (5) Cirrhosis of liver (6) Diabetes mellitus (7) Hypercalcemia (8) Nutrition, metabolism, and development symptoms Review of Systems All other systems reviewed negative except as stated in HPI PMFSH - History History Provided By: Patient - Medical History Medical History: Medical History (Last Reviewed 09/15/18 @ 21:11 by Kenny Lombardi MD, R2) Anxiety Cirrhosis Depression Diabetes Heart murmur Hepatitis C Hypertension Renal insufficiency - Tobacco History Smoking Status: Former smoker - Alcohol History How Often Do You Have a Drink Containing Alcohol: Never - Substance Use History Substance History: No History of Abuse - Travel History Recent Travel in the [place] Within the Last 8 Weeks: No Recent Travel Out of the Country Within the Last 8 Weeks: No - Immunization History Tetanus Immunization: <5 Years Medications and Allergies Active Medications: Active Medications Sodium Chloride (Ns Flush) 2 ml IV.FLUSH PRN PRN PRN Reason: FLUSH AFTER USING IV ACCESS Allergies Allergy/AdvReac Type Severity Reaction Status Date / Time codeine Allergy Severe Itching Verified 09/15/18 15:46 Home Medications Medication Instructions Recorded Confirmed Type amlodipine 5 mg PO DAILY 09/15/18 09/15/18 History bumetanide 1 mg PO BID 09/15/18 09/15/18 History carboxymethylcellulose sodium 1 drp OPHTHALMIC (EYE) Q4-6H PRN 09/15/18 History carvedilol 6.25 mg PO BID 09/15/18 09/15/18 History insulin glargine 10 unit SUBCUT HS 09/15/18 09/15/18 History spironolactone 25 mg PO BID 09/15/18 09/15/18 History Exam Vital signs: Vital Signs 09/15/18 15:36 09/15/18 15:42 09/15/18 17:55 Temperature 97.6 F Pulse Rate 59 L 59 L 68 Respiratory Rate 20 16 16 Blood Pressure 242/102 H 234/95 H 190/91 H Pulse Oximetry 99 95 95 Intake & Output 09/14/18 09/15/18 09/15/18 18:59 06:59 18:59 Weight 61.235 kg Narrative: GENERAL: Well-nourished female sitting upright in bed in no acute distress. Pleasant and answering questions appropriately. Speaking in full sentences. Occasionally has difficulty with word finding. SKIN: Warm and dry. HEAD: Atraumatic. Normocephalic. EYES: Pupils equal and round. No scleral icterus. No injection or drainage. ENT: No nasal bleeding or discharge. Mucous membranes pink and moist. NECK: Trachea midline. No JVD. CARDIOVASCULAR: Regular rate and rhythm. Systolic murmur appreciated best the left lower sternal border RESPIRATORY: No accessory muscle use. Clear to auscultation. Breath sounds equal bilaterally. GASTROINTESTINAL: Abdomen soft, nontender no significant distention. There is a positive fluid wave. No palpable hepatosplenomegaly MUSCULOSKELETAL: Extremities without clubbing, cyanosis. 1+ pitting edema to the level of the knees NEUROLOGICAL: Awake and alert. No obvious cranial nerve deficits. Motor grossly within normal limits. Five out of 5 muscle strength in the arms and legs. Normal speech. Oriented x3, however she was unable to initially recall the name of the city we are in. Was able to pick it out of an option of 3. PSYCHIATRIC: Appropriate mood and affect; insight and judgment normal. Results - Labs Result diagrams: 09/15/18 16:05 09/15/18 16:05 Abnormal lab results 09/15/18 09/15/18 Range/Units 16:05 16:05 RBC 3.13 L (4.00-5.30) mil/mm3 Hgb 10.8 L (11.6-15.3) gm/dL Hct 29.4 L (35.0-46.0) % MCH 34.3 H (27.0-34.0) pg MCHC 36.6 H (32.0-36.0) % Eos % (Auto) 4.9 H (0.0-4.0) % Baso % (Auto) 2.2 H (0.0-2.0) % Chloride 110 H (98-107) meq/L BUN 35 H (7-18) mg/dL Creatinine 3.74 H (0.50-1.00) mg/dL Estimated GFR 12 L (>89) mL/min Calcium 11.2 H (8.5-10.1) mg/dL Magnesium 1.4 L (1.5-2.5) mg/dL AST 38 H (15-37) U/L Troponin I Less than 0.02 L (0.02-0.05) ng/mL Albumin 2.4 L (3.4-5.0) g/dL Short CBC 09/15/18 Range/Units 16:05 WBC 5.8 (4.0-11.0) th/mm3 Hgb 10.8 L (11.6-15.3) gm/dL Hct 29.4 L (35.0-46.0) % Plt Count 160 (150-450) th/mm3 BMP 09/15/18 16:05 Sodium 143 Potassium 3.5 Chloride 110 H Carbon Dioxide 24.5 BUN 35 H Creatinine 3.74 H Calcium 11.2 H Cardiac Enzymes 09/15/18 Range/Units 16:05 Total Creatine Kinase 76 (26-192) U/L Troponin I Less than 0.02 L (0.02-0.05) ng/mL Liver Function 09/15/18 Range/Units 16:05 Total Bilirubin 0.9 (0.2-1.0) mg/dL AST 38 H (15-37) U/L ALT 12 (10-53) U/L Alkaline Phosphatase 69 (45-117) U/L Albumin 2.4 L (3.4-5.0) g/dL - Imaging Impressions Head CT 09/15/18 15:59 CONCLUSION: Unremarkable study. Chest X-Ray 09/15/18 16:01 CONCLUSION: Small left pleural effusion not present previously with slight consolidation and/or compressive collapse left lung base medially. Chest CT 09/15/18 17:00 CONCLUSION: 1. Bilateral pleural effusions worse on the left with slight left lung base compressive collapse. 2. Cholelithiasis. 3. Cirrhotic liver with moderate amount of ascites upper abdomen. Caprini VTE Risk Assessment Caprini VTE Risk Assessment: Moderate/High Risk (score >= 2) Caprini Risk Assessment Model: Point Value = 1 Point Value = 2 Point Value = 3 Point Value = 5 Age 41-60 Minor surgery BMI > 25 kg/m2 Swollen legs Varicose veins or History of unexplained or recurrent spontaneous Oral contraceptives or hormone replacement Sepsis (< 1 month) Serious lung disease, including pneumonia (< 1 month) Abnormal pulmonary function Acute myocardial infarction Congestive heart failure (< 1 month) History of inflammatory bowel disease Medical patient at bed rest Age 61-74 Arthroscopic surgery Major open surgery (> 45 min) Laparoscopic surgery (> 45 min) Malignancy Confined to bed (> 72 hours) Immobilizing plaster cast Central venous access Age >= 75 History of VTE Family history of VTE Factor V Leiden Prothrombin [id number] Lupus anticoagulant Anticardiolipin antibodies Elevated serum homocysteine Heparin-induced thrombocytopenia Other congenital or acquired thrombophilia Stroke (< 1 month) Elective arthroplasty Hip, pelvis, or leg fracture Acute spinal cord injury (< 1 month) Prophylaxis Regimen: Total Risk Factor Score Risk Level Prophylaxis Regimen 0-1 Low Early ambulation 2 Moderate Order ONE of the following: *Sequential Compression Device (SCD) *Heparin 5000 units SQ BID 3-4 Higher Order ONE of the following medications: *Heparin 5000 units SQ TID *Enoxaparin/Lovenox 40 mg SQ daily (WT < 150 kg, CrCl > 30 mL/min) *Enoxaparin/Lovenox 30 mg SQ daily (WT < 150 kg, CrCl > 10-29 mL/min) *Enoxaparin/Lovenox 30 mg SQ BID (WT < 150 kg, CrCl > 30 mL/min) AND/OR *Sequential Compression Device (SCD) 5 or more Highest Order ONE of the following medications: *Heparin 5000 units SQ TID (Preferred with Epidurals) *Enoxaparin/Lovenox 40 mg SQ daily (WT < 150 kg, CrCl > 30 mL/min) *Enoxaparin/Lovenox 30 mg SQ daily (WT < 150 kg, CrCl > 10-29 mL/min) *Enoxaparin/Lovenox 30 mg SQ BID (WT < 150 kg, CrCl > 30 mL/min) AND *Sequential Compression Device (SCD) Assessment and Plan - Assessment (1) Altered mental status Code(s): R41.82 - Altered mental status, unspecified Status: Acute Plan: 1 day history of altered mental status with word finding difficulty, poor recall CT head negative, no focal deficits on exam, alert and oriented on admission No significant electrolyte abnormalities, however patient does have significant acute on chronic kidney injury Ammonia not elevated on admission Patient is significantly hypertensive on admission, the hypertensive urgency below UA, UDS on pending (2) Hypertensive urgency Code(s): I16.0 - Hypertensive urgency Status: Acute Plan: Significantly hypertensive on admission is elevated is 242/102 Received 1 dose of hydralazine in the ED, blood pressure came down to 190/91 EKG showed sinus bradycardia, heart rate 53, no ST changes Telemetry Continuing home amlodipine, carvedilol Hydralazine IV as needed (3) [id number] kidney injury Code(s): N17.9 - Acute kidney failure, unspecified; N18.9 - Chronic kidney disease, unspecified Status: Acute Plan: Patient with significantly elevated creatinine on admission, 3.74 compared to most recent lab of 1.7 Hesitant to use IV fluids as she has signs of fluid overload including bilateral lower extremity edema, pleural effusions on CT chest Also on Bumex, spironolactone at home Consulting nephrology on admission, will continue diuretics at this time and encourage p.o. hydration Electrolytes overall within normal limits, aside from mild hypercalcemia (4) Pleural effusion Code(s): J90 - Pleural effusion, not elsewhere classified Status: Acute Plan: Chest x-ray on admission showed small left pleural effusion, slight consolidation and/or compressive collapse of left lung base medially CT chest on admission showed bilateral pleural effusions or so left with slight left lung base compressive collapse Continuing home Bumex, spironolactone and will be cautious with IV fluids for fluid resuscitation BNP pending Consulting nephrology (5) Cirrhosis of liver Code(s): K74.60 - Unspecified cirrhosis of liver Status: Acute Plan: Known history of liver cirrhosis, known history of hepatitis C Liver enzymes, bilirubin within normal limits CT chest did fiber picker cirrhotic liver with moderate amount of ascites in the upper abdomen Continuing Bumex, spironolactone (6) Diabetes mellitus Code(s): E11.9 - Type 2 diabetes mellitus without complications Status: Acute Plan: Known history of diabetes, takes insulin glargine 10 units at night Low-dose sliding scale (7) Hypercalcemia Code(s): E83.52 - Hypercalcemia Status: Acute Plan: Mild hypercalcemia on admission Monitor for now (8) Nutrition, metabolism, and development symptoms Code(s): R63.8 - Other symptoms and signs concerning food and fluid intake Status: Acute Plan: Encouraging p.o. intake - Assessment and Plan 4-year-old female with a history of liver cirrhosis, CKD, diabetes, hypertension presented to the emergency room with 1 day history of altered mental status. No focal deficits, CT head negative on admission. Found to have significant acute on chronic kidney injury. Also fluid overload with bilateral lower extremity edema and pleural effusions. Continuing diuretics on admission and consulting nephrology. Also found to be in hypertensive urgency on admission, improved with hydralazine.
[2018-09-15] MEDS ORDERED: Bisacodyl 10 MG Supp RECTAL PRN (18:42)
[2018-09-15] MEDS ORDERED: Carboxymethylcellulose 0.5% Opth Drops 15 ML Bottle EACH EYE PRN (20:00)
[2018-09-15] MEDS ORDERED: hydrALAZINE HCl Inj 20 MG/ML Vial IV.PUSH PRN (20:50)
[2018-09-15] MEDS ORDERED: Dextrose 50% in Water 50 ML Vial IV.PUSH PRN (21:36)
[2018-09-15] MEDS: Spironolactone 25 MG Tablet PO SCH (22:09)
[2018-09-15] MEDS: Senna/Docusate Sodium 8.6/50 MG Tablet PO SCH (22:10)
[2018-09-15] MEDS: Carvedilol 6.25 MG Tablet PO SCH (22:10)
[2018-09-16 04:51] LABS: Amphetamine Screen,Urine Neg (Neg); Barbiturate Screen,Urine Neg (Neg); Cannabinoid Screen,Urine Pos (Neg); Cocaine Screen,Urine Neg (Neg)
[2018-09-16 05:03] LABS: Opiate Screen,Urine Neg (Neg)
[2018-09-16 05:11] LABS: Bacteria,Urine Rare /hpf; Bilirubin,Urine Negative (Negative); Clarity,Urine Clear (Clear); Color,Urine Yellow (Yellw/Straw); Glucose,Urine (UA) 50 mg/dL (Negative); Hyaline Casts,Urine 29 /lpf (0-3); Leukocyte Esterase,Urine Negative (Negative); Mucus,Urine Few /lpf (Occasional); Nitrite,Urine Negative (Negative); Squamous Epithelial Cell,Urine 1 /hpf (0-5)
[2018-09-16 07:27] LABS: Baso # (Auto) 0.1 th/mm3 (0.0-0.2); Baso % (Auto) 1.7 % (0.0-2.0); Eos # (Auto) 0.2 th/mm3 (0.0-0.4); Hematocrit 24.3 % (35.0-46.0); Hemoglobin 8.8 gm/dL (11.6-15.3); Lymph # (Auto) 1.3 th/mm3 (1.0-4.8); Lymph % (Auto) 22.4 % (9.0-44.0); Mean Corpuscular Hemoglobin 33.6 pg (27.0-34.0); Mean Platelet Volume 8.1 fL (7.0-11.0); Mono # (Auto) 0.6 th/mm3 (0.0-0.9); Mono % (Auto) 10.5 % (0.0-8.0); Neut # (Auto) 3.5 th/mm3 (1.8-7.7); Neut % (Auto) 61.4 % (16.0-70.0); Platelet Count 132 th/mm3 (150-450); Red Blood Count 2.61 mil/mm3 (4.00-5.30); Red Cell Distribution Width 15.3 % (11.6-17.2); White Blood Count 5.7 th/mm3 (4.0-11.0)
[2018-09-16 07:29] LABS: Mean Corpuscular HGB Conc 36.1 % (32.0-36.0)
[2018-09-16 07:48] LABS: Albumin 2.1 g/dL (3.4-5.0); Anion Gap 9 meq/L (5-15); Aspartate Aminotransferase 22 U/L (15-37); Blood Urea Nitrogen 39 mg/dL (7-18); Calcium 10.6 mg/dL (8.5-10.1); Carbon Dioxide 22.8 meq/L (21.0-32.0); Chloride 112 meq/L (98-107); Glomerular Filtration Rate 12 mL/min (>89); Glucose,Random 90 mg/dL (74-106); Potassium 3.3 meq/L (3.5-5.1); Sodium 144 meq/L (136-145)
[2018-09-16 07:49] LABS: Alanine Aminotransferase 9 U/L (10-53)
[2018-09-16 07:51] LABS: Alkaline Phosphatase 57 U/L (45-117); Total Protein 5.3 g/dL (6.4-8.2)
[2018-09-16] MEDS ORDERED: amLODIPine 5 MG Tablet PO SCH (09:00)
--- NOTE | 2018-09-16 09:29 | P.HPFP ---
History of Present Illness Primary Care Physician: Physician [facility] History of Present Illness: Ms Ellison is a 58-year-old female with a history of hypertension, CKD, liver cirrhosis, diabetes, anxiety, known congenital heart murmur, history of hepatitis C who presented to the emergency room for altered mental status. Patient's sister and [id number] are present who assist in providing history. Patient was in her normal state of health recently went on a trip to [place] with her sister and jzonraq-[id number]. They drove home from [place] the day before admission with no complications and patient went to her own condo on the night prior to admission with normal mentation. During the trip she did have a mechanical fall and injured her jaw but didn't have any change in mentation. The sister reports that the patient normally texts her morning BP, BG to her but she failed to do so the morning of admission. This is unusual for her so the sister began to text questions and the patient's responses were very confusing and did not make sense. At that time the sister went to evaluate the patient and she was found to be confused. The patient seemed to have difficulty finding words/verbalizing words and was having poor recollection of the events from the most recent trip. There was no notable facial droop, abnormal weakness or other findings at that time. At baseline she has LLE weakness compared to the R and that hasn't changed dramatically. Otherwise no noticed focal area of weakness/change in sensation No fevers, no significant cough, SOB, chest pain, sore throat, she does have a history of occasional abdominal distention/swelling which is present but not as bad as it has been, no new abdominal pain. She feels edematous in her hands/ legs. No dysuria or malodorous urine Has hepatitis C, treated with Harvoni several years ago with reported cure. Subsequently developed liver cirrhosis, DM, kidney disease. She is followed by the [facility] and sees a infection control nurse there who told her that her kidneys were functioning at 20% of what they should be. She was admitted before for an increased ammonia level that caused confusion however this time her ammonia level is fine. According to her sister who was in the room, our pt is stable to improving. Nephrology has been consulted. PMH: HTN, hepatitis C, diabetes, liver cirrhosis, CKD, depression Psurgical: hysterectomy, renal biopsy Family hx: congenital heart murmurs Social: Lives alone in a condo in [place]. Her sister and [id number] live in a condo nearby. No alcohol, tobacco, drugs - Diagnosis (1) Altered mental status (2) Hypertensive urgency (3) Zqlab-ak-worwvtg kidney injury (4) Pleural effusion (5) Cirrhosis of liver (6) Diabetes mellitus (7) Hypercalcemia (8) Nutrition, metabolism, and development symptoms Inpatient Certification: I certify that the inpatient services were ordered in accordance with Medicare regulations governing the order. This includes certification that hospital inpatient services are reasonable and necessary and in the case of services not specified as inpatient-only under 42 CFR 419.22(n), that they are appropriately provided as inpatient services in accordance to with the 2-midnight benchmark under 43 CFR 412.3(e) Estimated Total Length of Stay (Days): 3 Plans for Post Hospital Care: Home Review of Systems Gastrointestinal: Reports other (ascites on occasion) Neurologic: Reports confusion (improving) PMF - History History Provided By: Patient, Family Member - Medical History Medical History: Medical History (Last Reviewed 09/16/18 @ 06:42 by Santiago Spencer) Anxiety Cirrhosis Depression Diabetes Heart murmur Hepatitis C Hypertension Renal insufficiency - Social History I have reviewed the patient's Social History: Yes - Tobacco History Second Hand Smoke Exposure: No Smoking Status: Never smoker - Alcohol History How Often Do You Have a Drink Containing Alcohol: Never - Substance Use History Substance History: No History of Abuse - Substance Use Type Marijuana Last Used: on drug screen - Travel History Recent Travel in the [place] Within the Last 8 Weeks: Yes Recent Travel Out of the Country Within the Last 8 Weeks: No - Immunization History Tetanus Immunization: Unsure Hx Influenza Vaccine This Season: Yes Medications and Allergies Active Medications: Active Medications Al Hydroxide/Mg Hydroxide (Milk Of Magnesia Liq) 30 ml PO Q12H PRN PRN Reason: Mild Constipation Amlodipine Besylate (Norvasc) 5 mg PO DAILY [facility] Artificial Tears (Refresh Tears 0.5% Opth Drops) 1 drop EACH EYE Q4H PRN PRN Reason: DRY EYES Bisacodyl (Dulcolax Supp) 10 mg RECTAL DAILY PRN PRN Reason: SEVERE CONSITIPATION Bumetanide (Bumex) 1 mg PO BID [facility] Last Admin: 09/15/18 22:09 Dose: 1 mg Carvedilol (Coreg) 6.25 mg PO BID [facility] Last Admin: 09/15/18 22:10 Dose: 6.25 mg Dextrose (D50w Vial) 50 ml IV.PUSH UNSCH PRN PRN Reason: PER HYPOGLYCEMIA PROTOCOL Glucagon (Glucagon Inj) 1 mg OTHER PRN PRN PRN Reason: for Hypoglycemia Protocol Hydralazine HCl (Apresoline Inj) 20 mg IV.PUSH Q6H PRN PRN Reason: SEE LABEL COMMENTS Last Admin: 09/15/18 20:58 Dose: 20 mg Insulin Aspart (Novolog Insulin Correctional Sugar Inj) 0 unit SQ ACHS [facility]; Protocol Lactulose (Lactulose Liq) 30 ml PO DAILY PRN PRN Reason: SEVERE CONSITIPATION Ondansetron HCl (Zofran Inj) 4 mg IV.PUSH Q6H PRN PRN Reason: NAUSEA OR VOMITING Potassium Chloride (K-Dur) 40 meq PO BID [facility] Senna/Docusate Sodium (Marissa-Colace) 1 tab PO BID [facility] Last Admin: 09/15/18 22:10 Dose: 1 tab Sennosides (Senokot) 17.2 mg PO Q12H PRN PRN Reason: Moderate Constipation Sodium Chloride (Ns Flush) 2 ml IV.FLUSH BID [facility] Last Admin: 09/15/18 22:10 Dose: 2 ml Sodium Chloride (Ns Flush) 2 ml IV.FLUSH PRN PRN PRN Reason: FLUSH AFTER USING IV ACCESS Spironolactone (Aldactone) 25 mg PO BID [facility] Last Admin: 09/15/18 22:09 Dose: 25 mg Allergies Allergy/AdvReac Type Severity Reaction Status Date / Time codeine Allergy Severe Itching Verified 09/15/18 15:46 Home Medications Medication Instructions Recorded Confirmed Type amlodipine 5 mg PO DAILY 09/15/18 09/15/18 History bumetanide 1 mg PO BID PRN 09/15/18 09/15/18 History carboxymethylcellulose sodium 1 drp OPHTHALMIC (EYE) Q4-6H PRN 09/15/18 History carvedilol 6.25 mg PO BID 09/15/18 09/15/18 History insulin glargine 10 unit SUBCUT HS 09/15/18 09/15/18 History spironolactone 25 mg PO BID 09/15/18 09/15/18 History Exam Vital signs: Vital Signs 09/15/18 15:36 09/15/18 15:42 09/15/18 17:55 Temperature 97.6 F Pulse Rate 59 L 59 L 68 Respiratory Rate 20 16 16 Blood Pressure 242/102 H 234/95 H 190/91 H Pulse Oximetry 99 95 95 09/15/18 20:00 09/15/18 21:14 09/15/18 22:06 Temperature 97.7 F Pulse Rate 58 L 65 70 Respiratory Rate 18 18 18 Blood Pressure 222/85 H 167/73 H 158/66 H Pulse Oximetry 98 98 96 09/16/18 00:00 09/16/18 03:45 09/16/18 04:00 Temperature 97.4 F L 98.5 F Pulse Rate 58 L 63 61 Respiratory Rate 17 18 Blood Pressure 141/68 H 151/70 H Pulse Oximetry 97 98 09/16/18 08:00 Temperature 98.3 F Pulse Rate 62 Respiratory Rate 18 Blood Pressure 150/89 H Pulse Oximetry 96 Intake & Output 09/15/18 09/16/18 09/16/18 18:59 06:59 18:59 Output Total 100 / 100 Balance -100 / -100 Weight 61.235 kg 61.2 kg Output: Urine 100 / 100 Other: # Voids 3 Date of Last Bowel Movement 09/14/18 Weight On Admission 61.235 kg Narrative: GENERAL: Well-nourished female sitting upright in bed in no acute distress. Pleasant and answering questions appropriately. Speaking in full sentences. SKIN: Warm and dry. HEAD: Atraumatic. Normocephalic. EYES: Pupils equal and round. No scleral icterus. No injection or drainage. ENT: No nasal bleeding or discharge. Mucous membranes pink and moist. NECK: Trachea midline. No JVD. CARDIOVASCULAR: Regular rate and rhythm. Systolic murmur appreciated best the left lower sternal border RESPIRATORY: No accessory muscle use. Clear to auscultation. Breath sounds equal bilaterally. some diminishment at bases of lungs GASTROINTESTINAL: Abdomen soft, nontender no significant distention. There is a positive fluid wave. No palpable hepatosplenomegaly MUSCULOSKELETAL: Extremities without clubbing, cyanosis. 1+ painful pitting edema to the level of the knees NEUROLOGICAL: Awake and alert. No obvious cranial nerve deficits. Motor grossly within normal limits. Five out of 5 muscle strength in the arms and legs. Normal speech. Oriented x3, however she was unable to initially recall the name of the city we are in. Was able to pick it out of an option of 3 on admission. PSYCHIATRIC: Appropriate mood and affect; insight and judgment normal. Results - Labs Result diagrams: 09/16/18 11:34 09/16/18 07:02 Abnormal lab results 09/15/18 09/15/18 09/15/18 Range/Units 16:05 16:05 20:30 RBC 3.13 L (4.00-5.30) mil/mm3 Hgb 10.8 L (11.6-15.3) gm/dL Hct 29.4 L (35.0-46.0) % MCH 34.3 H (27.0-34.0) pg MCHC 36.6 H (32.0-36.0) % Plt Count (150-450) th/mm3 Piatt % (Auto) (0.0-8.0) % Eos % (Auto) 4.9 H (0.0-4.0) % Baso % (Auto) 2.2 H (0.0-2.0) % Potassium (3.5-5.1) meq/L Chloride 110 H (98-107) meq/L BUN 35 H (7-18) mg/dL Creatinine 3.74 H (0.50-1.00) mg/dL Estimated GFR 12 L (>89) mL/min Calcium 11.2 H (8.5-10.1) mg/dL Magnesium 1.4 L (1.5-2.5) mg/dL AST 38 H (15-37) U/L ALT (10-53) U/L Ammonia (11-32) mcmol/L Troponin I Less than 0.02 L (0.02-0.05) ng/mL B-Natriuretic Peptide 485 H (0-100) pg/mL Total Protein (6.4-8.2) g/dL Albumin 2.4 L (3.4-5.0) g/dL Urine Occult Blood (Negative) Urine Bacteria (None) /hpf Urine Mucus (Occasional) /lpf U Cannabinoids Screen (Neg) 09/15/18 09/16/18 09/16/18 Range/Units 20:30 04:00 04:00 RBC (4.00-5.30) mil/mm3 Hgb (11.6-15.3) gm/dL Hct (35.0-46.0) % MCH (27.0-34.0) pg MCHC (32.0-36.0) % Plt Count (150-450) th/mm3 Piatt % (Auto) (0.0-8.0) % Eos % (Auto) (0.0-4.0) % Baso % (Auto) (0.0-2.0) % Potassium (3.5-5.1) meq/L Chloride (98-107) meq/L BUN (7-18) mg/dL Creatinine (0.50-1.00) mg/dL Estimated GFR (>89) mL/min Calcium (8.5-10.1) mg/dL Magnesium (1.5-2.5) mg/dL AST (15-37) U/L ALT (10-53) U/L Ammonia 10 L (11-32) mcmol/L Troponin I (0.02-0.05) ng/mL B-Natriuretic Peptide (0-100) pg/mL Total Protein (6.4-8.2) g/dL Albumin (3.4-5.0) g/dL Urine Occult Blood Small H (Negative) Urine Bacteria Rare H (None) /hpf Urine Mucus Few H (Occasional) /lpf U Cannabinoids Screen Pos H (Neg) 09/16/18 09/16/18 Range/Units 07:02 07:02 RBC 2.61 L (4.00-5.30) mil/mm3 Hgb 8.8 L D (11.6-15.3) gm/dL Hct 24.3 L (35.0-46.0) % MCH (27.0-34.0) pg MCHC 36.1 H (32.0-36.0) % Plt Count 132 L (150-450) th/mm3 Piatt % (Auto) 10.5 H (0.0-8.0) % Eos % (Auto) (0.0-4.0) % Baso % (Auto) (0.0-2.0) % Potassium 3.3 L (3.5-5.1) meq/L Chloride 112 H (98-107) meq/L BUN 39 H (7-18) mg/dL Creatinine 3.75 H (0.50-1.00) mg/dL Estimated GFR 12 L (>89) mL/min Calcium 10.6 H (8.5-10.1) mg/dL Magnesium (1.5-2.5) mg/dL AST (15-37) U/L ALT 9 L (10-53) U/L Ammonia (11-32) mcmol/L Troponin I (0.02-0.05) ng/mL B-Natriuretic Peptide (0-100) pg/mL Total Protein 5.3 L D (6.4-8.2) g/dL Albumin 2.1 L (3.4-5.0) g/dL Urine Occult Blood (Negative) Urine Bacteria (None) /hpf Urine Mucus (Occasional) /lpf U Cannabinoids Screen (Neg) Short CBC 09/15/18 09/16/18 Range/Units 16:05 07:02 WBC 5.8 5.7 (4.0-11.0) th/mm3 Hgb 10.8 L 8.8 L D (11.6-15.3) gm/dL Hct 29.4 L 24.3 L (35.0-46.0) % Plt Count 160 132 L (150-450) th/mm3 BMP 09/15/18 09/16/18 16:05 07:02 Sodium 143 144 Potassium 3.5 3.3 L Chloride 110 H 112 H Carbon Dioxide 24.5 22.8 BUN 35 H 39 H Creatinine 3.74 H 3.75 H Calcium 11.2 H 10.6 H Cardiac Enzymes 09/15/18 Range/Units 16:05 Total Creatine Kinase 76 (26-192) U/L Troponin I Less than 0.02 L (0.02-0.05) ng/mL Liver Function 09/15/18 09/16/18 Range/Units 16:05 07:02 Total Bilirubin 0.9 0.6 (0.2-1.0) mg/dL AST 38 H 22 (15-37) U/L ALT 12 9 L (10-53) U/L Alkaline Phosphatase 69 57 (45-117) U/L Albumin 2.4 L 2.1 L (3.4-5.0) g/dL Urine 12/16/18 Range/Units 04:00 Urine Color Yellow (Yellw/Straw) Urine Clarity Clear (Clear) Urine pH 5.0 (5.0-8.5) Ur Specific [place] 1.010 (1.002-1.035) Urine Protein 500 or greater (Neg-Trace) mg/dL Urine Glucose (UA) 50 (Negative) mg/dL - Imaging Impressions Head CT 09/15/18 15:59 CONCLUSION: Unremarkable study. Chest X-Ray 09/15/18 16:01 CONCLUSION: Small left pleural effusion not present previously with slight consolidation and/or compressive collapse left lung base medially. Chest CT 09/15/18 17:00 CONCLUSION: 1. Bilateral pleural effusions worse on the left with slight left lung base compressive collapse. 2. Cholelithiasis. 3. Cirrhotic liver with moderate amount of ascites upper abdomen. Caprini VTE Risk Assessment Caprini VTE Risk Assessment: Moderate/High Risk (score >= 2) Caprini Risk Assessment Model: Point Value = 1 Point Value = 2 Point Value = 3 Point Value = 5 Age 41-60 Minor surgery BMI > 25 kg/m2 Swollen legs Varicose veins or History of unexplained or recurrent spontaneous Oral contraceptives or hormone replacement Sepsis (< 1 month) Serious lung disease, including pneumonia (< 1 month) Abnormal pulmonary function Acute myocardial infarction Congestive heart failure (< 1 month) History of inflammatory bowel disease Medical patient at bed rest Age 61-74 Arthroscopic surgery Major open surgery (> 45 min) Laparoscopic surgery (> 45 min) Malignancy Confined to bed (> 72 hours) Immobilizing plaster cast Central venous access Age >= 75 History of VTE Family history of VTE Factor V Leiden Prothrombin [id number] Lupus anticoagulant Anticardiolipin antibodies Elevated serum homocysteine Heparin-induced thrombocytopenia Other congenital or acquired thrombophilia Stroke (< 1 month) Elective arthroplasty Hip, pelvis, or leg fracture Acute spinal cord injury (< 1 month) Prophylaxis Regimen: Total Risk Factor Score Risk Level Prophylaxis Regimen 0-1 Low Early ambulation 2 Moderate Order ONE of the following: *Sequential Compression Device (SCD) *Heparin 5000 units SQ BID 3-4 Higher Order ONE of the following medications: *Heparin 5000 units SQ TID *Enoxaparin/Lovenox 40 mg SQ daily (WT < 150 kg, CrCl > 30 mL/min) *Enoxaparin/Lovenox 30 mg SQ daily (WT < 150 kg, CrCl > 10-29 mL/min) *Enoxaparin/Lovenox 30 mg SQ BID (WT < 150 kg, CrCl > 30 mL/min) AND/OR *Sequential Compression Device (SCD) 5 or more Highest Order ONE of the following medications: *Heparin 5000 units SQ TID (Preferred with Epidurals) *Enoxaparin/Lovenox 40 mg SQ daily (WT < 150 kg, CrCl > 30 mL/min) *Enoxaparin/Lovenox 30 mg SQ daily (WT < 150 kg, CrCl > 10-29 mL/min) *Enoxaparin/Lovenox 30 mg SQ BID (WT < 150 kg, CrCl > 30 mL/min) AND *Sequential Compression Device (SCD) Assessment and Plan - Assessment (1) Altered mental status Code(s): R41.82 - Altered mental status, unspecified Status: Acute Plan: 1 day history of altered mental status with word finding difficulty, poor recall CT head negative, no focal deficits on exam, alert and oriented on admission No significant electrolyte abnormalities, however patient does have significant acute on chronic kidney injury Ammonia not elevated on admission Patient is significantly hypertensive on admission, the hypertensive urgency below UA, UDS on pending Per her sister, when pt has worsening renal problems it can cause some confusion. She is improving today. Her drug test shows marijuana use. Pt can be questioned about this as it can definitely contribute to confusion. (2) Hypertensive urgency Code(s): I16.0 - Hypertensive urgency Status: Acute Plan: Significantly hypertensive on admission is elevated is 242/102 Received 1 dose of hydralazine in the ED, blood pressure came down to 190/91 EKG showed sinus bradycardia, heart rate 53, no ST changes Telemetry Continuing home amlodipine, carvedilol Hydralazine IV as needed she has serious renal disease which is probably making her pressures very high. appreciate the help of Nephrology (3) Ovtcm-gh-pyxbdth kidney injury Code(s): N17.9 - Acute kidney failure, unspecified; N18.9 - Chronic kidney disease, unspecified Status: Acute Plan: Patient with significantly elevated creatinine on admission, 3.74 compared to most recent lab of 1.7 Hesitant to use IV fluids as she has signs of fluid overload including bilateral lower extremity edema, pleural effusions on CT chest Also on Bumex, spironolactone at home Consulting nephrology on admission, will continue diuretics at this time and encourage p.o. hydration Electrolytes overall within normal limits, aside from mild hypercalcemia (4) Pleural effusion Code(s): J90 - Pleural effusion, not elsewhere classified Status: Acute Plan: Chest x-ray on admission showed small left pleural effusion, slight consolidation and/or compressive collapse of left lung base medially CT chest on admission showed bilateral pleural effusions or so left with slight left lung base compressive collapse Continuing home Bumex, spironolactone and will be cautious with IV fluids for fluid resuscitation BNP pending Consulted nephrology with her anemia and BUN/creatinine she does not clinically have dehydration, in fact the opposite as she has some fluid overload (5) Cirrhosis of liver Code(s): K74.60 - Unspecified cirrhosis of liver Status: Chronic Plan: Known history of liver cirrhosis, known history of hepatitis C Liver enzymes, bilirubin within normal limits CT chest did roll 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 she does have a agricultural engineer [facility] who can adjusts meds as needed (6) Diabetes mellitus Code(s): E11.9 - Type 2 diabetes mellitus without complications Status: Acute Plan: Known history of diabetes, takes insulin glargine 10 units at night Low-dose sliding scale (7) Hypercalcemia Code(s): E83.52 - Hypercalcemia Status: Acute Plan: Mild hypercalcemia on admission Monitor for now (8) Nutrition, metabolism, and development symptoms Code(s): R63.8 - Other symptoms and signs concerning food and fluid intake Status: Acute Plan: Encouraging p.o. intake - Assessment and Plan 4-year-old female with a history of liver cirrhosis, CKD, diabetes, hypertension presented to the emergency room with 1 day history of altered mental status. No focal deficits, CT head negative on admission. Found to have significant acute on chronic kidney injury. Also fluid overload with bilateral lower extremity edema and pleural effusions. Continuing diuretics on admission and consulting nephrology. Also found to be in hypertensive urgency on admission, improved with hydralazine. Discharge Planning: she and her sister wish her to stay at her sisters house when discharged H&P: Quality - VTE Deep Vein Thrombosis/Pulmonary Embolism Present on Admission: No (1) Altered mental status Qualifiers: Altered mental status type: delirium Qualified Code(s): R41.0 - Disorientation, unspecified (3) Tqjys-tl-pbkmztz kidney injury Qualifiers: Acute renal failure type: unspecified Chronic kidney disease stage: stage 4 ( severe) Qualified Code(s): N17.9 - Acute kidney failure, unspecified; N18.4 - Chronic kidney disease, stage 4 (severe) (5) Cirrhosis of liver Qualifiers: Hepatic cirrhosis type: other cirrhosis Qualified Code(s): K74.69 - Other cirrhosis of liver (6) Diabetes mellitus Qualifiers: Diabetes mellitus type: type 2 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
[2018-09-16] MEDS: Spironolactone 25 MG Tablet PO SCH ×2 (09:45→21:05)
[2018-09-16] MEDS: Senna/Docusate Sodium 8.6/50 MG Tablet PO SCH ×2 (09:45→21:04)
[2018-09-16] MEDS: Carvedilol 6.25 MG Tablet PO SCH ×2 (09:45→21:04)
[2018-09-16] MEDS: Insulin NovoLOG Aspart Correctional Sugar Inj SQ SCH ×2 (09:48→21:20)
--- NOTE | 2018-09-16 09:50 | P.CONNP ---
<Amena Roman - Last Filed: 09/16/18 09:12> History of Present Illness Service: Nephrology Consult date: 09/16/18 Requesting Physician: Kenny Lombardi Reason for Consult: Acute on Chronic kidney injury with fluid overload. Primary Care Provider: [facility] History of Present Illness: Patient is a 58-year-old female with a history of hypertension, Chronic kidney disease stage 4, liver cirrhosis, diabetes, anxiety, and history of hepatitis C. Presented to the emergency room for altered mental status. Head CT with no acute findings. Nephrology is consulted for acute kidney injury with a creatinine at 3.74 and potassium level of 3.5. [facility] and was told that her last GFR was at 22. Denies any shortness of breath, chest pain, nausea, vomiting, dysuria, hematuria, or diarrhea. Has mild bilateral lower extremity edema. Urine with increased protein. Patient continues to report issues with memory and having difficulty finding words and verbalizing. Has reported in the past that she had similar issues with memory and confusion when her creatinine was increased. Review of Systems All other systems reviewed negative except as stated in HPI PMFSH - History History Provided By: Patient, Family Member - Medical History Medical History: Medical History (Last Reviewed 09/16/18 @ 06:42 by Santiago Spencer) Anxiety Cirrhosis Depression Diabetes Heart murmur Hepatitis C Hypertension Renal insufficiency - Tobacco History Second Hand Smoke Exposure: No Smoking Status: Never smoker - Alcohol History How Often Do You Have a Drink Containing Alcohol: Never - Substance Use History Substance History: No History of Abuse - Travel History Recent Travel in the [place] Within the Last 8 Weeks: No Recent Travel Out of the Country Within the Last 8 Weeks: No - Immunization History Tetanus Immunization: Unsure Hx Influenza Vaccine This Season: Yes Medications and Allergies Allergies Allergy/AdvReac Type Severity Reaction Status Date / Time codeine Allergy Severe Itching Verified 09/15/18 15:46 Home Medications Medication Instructions Recorded Confirmed Type amlodipine 5 mg PO DAILY 09/15/18 09/15/18 History bumetanide 1 mg PO BID PRN 09/15/18 09/15/18 History carboxymethylcellulose sodium 1 drp OPHTHALMIC (EYE) Q4-6H PRN 09/15/18 History carvedilol 6.25 mg PO BID 09/15/18 09/15/18 History insulin glargine 10 unit SUBCUT HS 09/15/18 09/15/18 History spironolactone 25 mg PO BID 09/15/18 09/15/18 History Active Medications: Active Medications Al Hydroxide/Mg Hydroxide (Milk Of Magnesia Liq) 30 ml PO Q12H PRN PRN Reason: Mild Constipation Amlodipine Besylate (Norvasc) 5 mg PO DAILY [facility] Artificial Tears (Refresh Tears 0.5% Opth Drops) 1 drop EACH EYE Q4H PRN PRN Reason: DRY EYES Bisacodyl (Dulcolax Supp) 10 mg RECTAL DAILY PRN PRN Reason: SEVERE CONSITIPATION Bumetanide (Bumex) 1 mg PO BID [facility] Last Admin: 09/15/18 22:09 Dose: 1 mg Carvedilol (Coreg) 6.25 mg PO BID [facility] Last Admin: 09/15/18 22:10 Dose: 6.25 mg Dextrose (D50w Vial) 50 ml IV.PUSH UNSCH PRN PRN Reason: PER HYPOGLYCEMIA PROTOCOL Glucagon (Glucagon Inj) 1 mg OTHER PRN PRN PRN Reason: for Hypoglycemia Protocol Hydralazine HCl (Apresoline Inj) 20 mg IV.PUSH Q6H PRN PRN Reason: SEE LABEL COMMENTS Last Admin: 09/15/18 20:58 Dose: 20 mg Insulin Aspart (Novolog Insulin Correctional Sugar Inj) 0 unit SQ [facility]; Protocol Lactulose (Lactulose Liq) 30 ml PO DAILY PRN PRN Reason: SEVERE CONSITIPATION Ondansetron HCl (Zofran Inj) 4 mg IV.PUSH Q6H PRN PRN Reason: NAUSEA OR VOMITING Potassium Chloride (K-Dur) 40 meq PO BID [facility] Senna/Docusate Sodium (Marissa-Colace) 1 tab PO BID [facility] Last Admin: 09/15/18 22:10 Dose: 1 tab Sennosides (Senokot) 17.2 mg PO Q12H PRN PRN Reason: Moderate Constipation Sodium Chloride (Ns Flush) 2 ml IV.FLUSH BID [facility] Last Admin: 09/15/18 22:10 Dose: 2 ml Sodium Chloride (Ns Flush) 2 ml IV.FLUSH PRN PRN PRN Reason: FLUSH AFTER USING IV ACCESS Spironolactone (Aldactone) 25 mg PO BID [facility] Last Admin: 09/15/18 22:09 Dose: 25 mg Exam Vital signs: Vital Signs 09/15/18 15:36 09/15/18 15:42 09/15/18 17:55 Temperature 97.6 F Pulse Rate 59 L 59 L 68 Respiratory Rate 20 16 16 Blood Pressure 242/102 H 234/95 H 190/91 H Pulse Oximetry 99 95 95 09/15/18 20:00 09/15/18 21:14 09/15/18 22:06 Temperature 97.7 F Pulse Rate 58 L 65 70 Respiratory Rate 18 18 18 Blood Pressure 222/85 H 167/73 H 158/66 H Pulse Oximetry 98 98 96 09/16/18 00:00 09/16/18 03:45 09/16/18 04:00 Temperature 97.4 F L 98.5 F Pulse Rate 58 L 63 61 Respiratory Rate 17 18 Blood Pressure 141/68 H 151/70 H Pulse Oximetry 97 98 09/16/18 08:00 Temperature 98.3 F Pulse Rate 62 Respiratory Rate 18 Blood Pressure 150/89 H Pulse Oximetry 96 Intake & Output 09/15/18 09/16/18 09/16/18 18:59 06:59 18:59 Output Total 100 / 100 Balance -100 / -100 Weight 61.235 kg 61.2 kg Output: Urine 100 / 100 Other: # Voids 3 Date of Last Bowel Movement 09/14/18 Weight On Admission 61.235 kg Narrative: GENERAL: Alert and oriented. Having hard time with choosing words. SKIN: Warm and dry. NECK: Supple, trachea midline. No JVD. CARDIOVASCULAR: Regular rate and rhythm without murmurs, gallops, or rubs. RESPIRATORY: Breath sounds equal bilaterally. No accessory muscle use. GASTROINTESTINAL: Abdomen soft, non-tender, nondistended. MUSCULOSKELETAL: No cyanosis, Mild lower extremity edema. BACK: Nontender without obvious deformity. No CVA tenderness. Results - Lab Results 09/16/18 07:02 09/16/18 07:02 Most recent lab results Calcium 10.6 mg/dL (8.5-10.1) H 09/16/18 07:02 Magnesium 1.4 mg/dL (1.5-2.5) L 09/15/18 16:05 Assessment and Plan - Assessment (1) [id number] kidney injury Code(s): N17.9 - Acute kidney failure, unspecified; N18.9 - Chronic kidney disease, unspecified Status: Acute Plan: Acute kidney injury with a creatinine at 3.74 and potassium level of 3.5. 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 So has stage 4 chronic kidney disease. Urine with increased protein, casts, and small occult blood. In past has had positive MELE. Renal ultrasound ordered Will obtain urine sodium and osmolarity Urine with increased protein C3, C4, MELE, ANCA, and AntiDS ordered On bumex 1 mg BID and spironlactone 25 mg daily, lower extremity edema is mild but has bilateral pleural effusions. Recommend to continue diuretics for now if creatinine increases may need to reduce. Hypokalemia, on scheduled replacement, extra ordered today Creatinine at 3.75, urine output is low will monitor strict I+O Will follow urinary output and BMP Labs in AM (2) Altered mental status Code(s): R41.82 - Altered mental status, unspecified Status: Acute Plan: Head CT negative. Continues to report issues with memory and choosing words. Could be related to acute kidney injury. (3) Diabetes mellitus Code(s): E11.9 - Type 2 diabetes mellitus without complications Status: Acute Plan: Maintain blood sugars between 140 mg/dl to 180 mg/dl while hospitalized. Has SS available. (4) Hypertension Code(s): I10 - Essential (primary) hypertension Status: Acute Plan: SBP in the 150's. On amlodipine and coreg. Will increase amlodipine. <Silas Forrest - Last Filed: 09/16/18 18:15> History of Present Illness Primary Care Provider: [facility] - Medical History Medical History: Medical History (Last Reviewed 09/16/18 @ 06:42 by Santiago Spencer) Anxiety Cirrhosis Depression Diabetes Heart murmur Hepatitis C Hypertension Renal insufficiency - Substance Use Type Marijuana Last Used: on drug screen Medications and Allergies Active Medications: Active Medications Al Hydroxide/Mg Hydroxide (Milk Of Raymond Liq) 30 ml PO Q12H PRN PRN Reason: Mild Constipation Amlodipine Besylate (Norvasc) 5 mg PO BID [facility] Artificial Tears (Refresh Tears 0.5% Opth Drops) 1 drop EACH EYE Q4H PRN PRN Reason: DRY EYES Bisacodyl (Dulcolax Supp) 10 mg RECTAL DAILY PRN PRN Reason: SEVERE CONSITIPATION Bumetanide (Bumex) 1 mg PO BID [facility] Last Admin: 09/16/18 09:45 Dose: 1 mg Carvedilol (Coreg) 6.25 mg PO BID [facility] Last Admin: 09/16/18 09:45 Dose: 6.25 mg Dextrose (D50w Vial) 50 ml IV.PUSH UNSCH PRN PRN Reason: PER HYPOGLYCEMIA PROTOCOL Glucagon (Glucagon Inj) 1 mg OTHER PRN PRN PRN Reason: for Hypoglycemia Protocol Hydralazine HCl (Apresoline Inj) 20 mg IV.PUSH Q6H PRN PRN Reason: SEE LABEL COMMENTS Last Admin: 09/15/18 20:58 Dose: 20 mg Insulin Aspart (Novolog Insulin Correctional Sugar Inj) 0 unit SQ [facility]; Protocol Last Admin: 09/16/18 09:48 Dose: Not Given Lactulose (Lactulose Liq) 30 ml PO DAILY PRN PRN Reason: SEVERE CONSITIPATION Ondansetron HCl (Zofran Inj) 4 mg IV.PUSH Q6H PRN PRN Reason: NAUSEA OR VOMITING Potassium Chloride (K-Dur) 40 meq PO BID [facility] Last Admin: 09/16/18 09:52 Dose: 40 meq Senna/Docusate Sodium (Marissa-Colace) 1 tab PO BID [facility] Last Admin: 09/16/18 09:45 Dose: 1 tab Sennosides (Senokot) 17.2 mg PO Q12H PRN PRN Reason: Moderate Constipation Sodium Chloride (Ns Flush) 2 ml IV.FLUSH BID [facility] Last Admin: 09/16/18 09:50 Dose: 2 ml Sodium Chloride (Ns Flush) 2 ml IV.FLUSH PRN PRN PRN Reason: FLUSH AFTER USING IV ACCESS Spironolactone (Aldactone) 25 mg PO BID [facility] Last Admin: 09/16/18 09:45 Dose: 25 mg Exam Vital signs: Vital Signs 09/15/18 20:00 09/15/18 21:14 09/15/18 22:06 Temperature 97.7 F Pulse Rate 58 L 65 70 Respiratory Rate 18 18 18 Blood Pressure 222/85 H 167/73 H 158/66 H Pulse Oximetry 98 98 96 09/16/18 00:00 09/16/18 03:45 09/16/18 04:00 Temperature 97.4 F L 98.5 F Pulse Rate 58 L 63 61 Respiratory Rate 17 18 Blood Pressure 141/68 H 151/70 H Pulse Oximetry 97 98 09/16/18 08:00 09/16/18 12:00 09/16/18 16:00 Temperature 98.3 F 98.3 F 97.6 F Pulse Rate 62 62 54 L Respiratory Rate 18 18 18 Blood Pressure 150/89 H 192/77 H 185/79 H Pulse Oximetry 96 96 97 Intake & Output 09/15/18 09/16/18 09/16/18 18:59 06:59 18:59 Output Total 100 / 100 Balance -100 / -100 Weight 61.235 kg 61.2 kg Output: Urine 100 / 100 Other: # Voids 3 Date of Last Bowel Movement 09/14/18 09/14/18 Weight On Admission 61.235 kg Results - Lab Results 09/16/18 15:57 09/16/18 07:02 Most recent lab results Calcium 10.6 mg/dL (8.5-10.1) H 09/16/18 07:02 Magnesium 1.4 mg/dL (1.5-2.5) L 09/15/18 16:05 Assessment and Plan - Assessment (1) [id number] kidney injury Code(s): N17.9 - Acute kidney failure, unspecified; N18.9 - Chronic kidney disease, unspecified Status: Acute Plan: Patient seen and examined, agree with above. Patient with chronic kidney disease and now has AMA. Creatinine increase, has edema, continue diuretics. (2) Altered mental status Code(s): R41.82 - Altered mental status, unspecified Status: Acute (3) Diabetes mellitus Code(s): E11.9 - Type 2 diabetes mellitus without complications Status: Acute (4) Hypertension Code(s): I10 - Essential (primary) hypertension Status: Acute <Julia Forrest Q - Last Filed: 09/16/18 18:15> (1) Snook-ni-bcjnhwy kidney injury Qualifiers: Acute renal failure type: unspecified Chronic kidney disease stage: stage 4 ( severe) Qualified Code(s): N17.9 - Acute kidney failure, unspecified; N18.4 - Chronic kidney disease, stage 4 (severe) (2) Altered mental status Qualifiers: Altered mental status type: delirium Qualified Code(s): R41.0 - Disorientation, unspecified (3) Diabetes mellitus Qualifiers: Diabetes mellitus type: type 2 Diabetes mellitus computer terminal operator insulin use: with computer terminal operator use Diabetes mellitus complication status: with kidney complications Diabetes mellitus complication detail: with chronic kidney disease
--- NOTE | 2018-09-16 11:45 | ECG ---
Date Performed: 09/15/2018 Time Performed: 16:02:49 PTAGE: 58 years EKG: SINUS BRADYCARDIA LOW QRS VOLTAGE IN PRECORDIAL LEADS BORDERLINE ECG INTERPRETATION BASED O N A DEFAULT AGE OF 38 YEARS Since the PREVIOUS TRACING , no significant change noted PREVIOUS TRACIN01/26/2017 16.45 DOCTOR: Ronn Fonseca Interpretating Date/Time 09/16/2018 11:44:10
[2018-09-16 11:56] LABS: Hemoglobin 9.2 gm/dL (11.6-15.3)
--- NOTE | 2018-09-16 14:46 | US ---
EXAM DATE: 09/16/2018 2:43 PM EST AGE/SEX: 58 years / Female INDICATIONS: Increased lab values. CLINICAL DATA: This is the patient's initial encounter. Patient reports that signs and symptoms have been present for 1 day and indicates a pain score of 2/10. MEDICAL/SURGICAL HISTORY: Diabetes. Hepatitis C. Hypertension. Anxiety. Cirrhosis. Heart mur mur. Renal insufficiency. None. COMPARISON: No prior exams available for comparison. MEASUREMENTS: Right Kidney:__10.1 x 4.3 x 4.6 cm Left Kidney:__9.8 x 3.5 x 5.0 cm FINDINGS: Right Kidney: Increased echogenicity. No mass or hydronephrosis. Left Kidney: Increased echogenicity. No mass or hydronephrosis. Bladder: Within normal limits given the degree of distension. Other: Gallstones are present within the gallbladder without signs of cholecystitis for technique. T here is moderate amount of ascites throughout the abdomen. CONCLUSION: 1. Cholelithiasis and ascites. Electronically signed by: Kerri Velasco MD Board Certified Radiologist 09/16/2018 2:45 PM EST
[2018-09-16 16:09] LABS: Hematocrit 24.9 % (35.0-46.0); Hemoglobin 8.9 gm/dL (11.6-15.3)
[2018-09-16] MEDS: amLODIPine 5 MG Tablet PO SCH (21:04)
[2018-09-16 21:33] LABS: Hematocrit 23.2 % (35.0-46.0); Hemoglobin 8.5 gm/dL (11.6-15.3)
[2018-09-17 07:07] LABS: Baso # (Auto) 0.1 th/mm3 (0.0-0.2); Baso % (Auto) 1.4 % (0.0-2.0); Eos # (Auto) 0.3 th/mm3 (0.0-0.4); Eos % (Auto) 5.7 % (0.0-4.0); Hematocrit 24.8 % (35.0-46.0); Hemoglobin 8.7 gm/dL (11.6-15.3); Lymph # (Auto) 1.3 th/mm3 (1.0-4.8); Lymph % (Auto) 25.1 % (9.0-44.0); Mean Corpuscular Hemoglobin 33.1 pg (27.0-34.0); Mean Corpuscular Volume 94.5 fL (80.0-100.0); Mean Platelet Volume 8.2 fL (7.0-11.0); Mono # (Auto) 0.6 th/mm3 (0.0-0.9); Mono % (Auto) 11.6 % (0.0-8.0); Neut # (Auto) 2.9 th/mm3 (1.8-7.7); Neut % (Auto) 56.2 % (16.0-70.0); Platelet Count 123 th/mm3 (150-450); Red Blood Count 2.62 mil/mm3 (4.00-5.30); Red Cell Distribution Width 15.6 % (11.6-17.2); White Blood Count 5.2 th/mm3 (4.0-11.0)
[2018-09-17 07:15] LABS: Calcium 9.9 mg/dL (8.5-10.1); Carbon Dioxide 23.9 meq/L (21.0-32.0); Phosphorus 3.6 mg/dL (2.5-4.9); Potassium 3.9 meq/L (3.5-5.1)
--- NOTE | 2018-09-17 08:54 | P.PNNP ---
Subjective Interval history: Denies any shortness of breath, chest pain, nausea, or vomiting. Creatinine has improved since yesterday at 3.54. <Amena Roman - Last Filed: 09/17/18 08:40> Physical Exam Vital signs: Vital Signs 09/16/18 12:00 09/16/18 16:00 09/16/18 20:00 Temperature 98.3 F 97.6 F 98.5 F Pulse Rate 62 54 L 58 L Respiratory Rate 18 18 18 Blood Pressure 192/77 H 185/79 H 174/72 H Pulse Oximetry 96 97 97 09/16/18 23:20 09/17/18 00:00 09/17/18 03:45 Temperature 98.3 F 98.4 F Pulse Rate 54 L 50 L 53 L Respiratory Rate 17 17 Blood Pressure 169/71 H 183/75 H Pulse Oximetry 98 98 09/17/18 04:00 Temperature Pulse Rate 50 L Respiratory Rate Blood Pressure Pulse Oximetry Intake & Output 09/16/18 09/17/18 09/17/18 18:59 06:59 18:59 Output Total 200 / 200 Balance -200 / -200 Weight 61.5 kg Output: Urine 200 / 200 Other: # Voids 4 2 Date of Last Bowel Movement 09/14/18 09/16/18 Narrative: GENERAL: Alert and oriented. NAD SKIN: Warm and dry. NECK: Trachea midline. No JVD. CARDIOVASCULAR: Regular rate and rhythm. Murmur appreciated RESPIRATORY: No accessory muscle use. Clear to auscultation diminished in bases. Breath sounds equal bilaterally. GASTROINTESTINAL: Abdomen soft, nontender no significant distention. + BS. MUSCULOSKELETAL: Extremities without clubbing, cyanosis. 1+ painful pitting edema to the level of the knees, improving. <Amena Roman - Last Filed: 09/17/18 08:40> Vital signs: Vital Signs 09/16/18 23:20 09/17/18 00:00 09/17/18 03:45 Temperature 98.3 F 98.4 F Pulse Rate 54 L 50 L 53 L Respiratory Rate 17 17 Blood Pressure 169/71 H 183/75 H Pulse Oximetry 98 98 09/17/18 04:00 09/17/18 08:00 09/17/18 12:00 Temperature 97.8 F 97.4 F L Pulse Rate 50 L 53 L 53 L Respiratory Rate 16 Blood Pressure 153/69 H 193/80 H Pulse Oximetry 97 99 09/17/18 16:00 09/17/18 17:58 Temperature 98 F Pulse Rate 56 L 56 L Respiratory Rate 18 Blood Pressure 196/76 H 164/71 H Pulse Oximetry 99 Intake & Output 09/17/18 09/17/18 09/18/18 06:59 18:59 06:59 Output Total 200 / 200 Balance -200 / -200 Weight 61.5 kg Output: Urine 200 / 200 Other: # Voids 4 2 Date of Last Bowel Movement 09/16/18 09/15/18 <Silas Forrest - Last Filed: 09/17/18 21:14> Assessment and Plan - Assessment (1) Uzvnh-vt-rimhdyw kidney injury Code(s): N17.9 - Acute kidney failure, unspecified; N18.9 - Chronic kidney disease, unspecified Status: Acute Qualifiers: Acute renal failure type: unspecified Chronic kidney disease stage: stage 4 (severe) Qualified Code(s): N17.9 - Acute kidney failure, unspecified; N18.4 - Chronic kidney disease, stage 4 (severe) Plan: Acute kidney injury with a creatinine at 3.74 and potassium level of 3.5 on day of consult Patient is [facility] and was told that her last GFR was at 22. So has stage 4 chronic kidney disease. AMA possibly prerenal VS ATN Renal ultrasound with medical renal disease, no masses or hydronephrosis. Complements normal. Serology pending. Recommend to continue bumex 1 mg BID and spironlactone 25 mg daily. Creatinine has improved at 3.5 from 3.7 with good urinary output. Documented urinary output looks low but after reviewing with patient suspect that this is not accurate. With increased protein in urine patient could benefit from HEIDI or ARB at a later date when kidney function returns to baseline. Fluid balance and electrolytes stable. Will monitor UOP and BMP. (2) Altered mental status Code(s): R41.82 - Altered mental status, unspecified Status: Acute Qualifiers: Altered mental status type: delirium Qualified Code(s): R41.0 - Disorientation, unspecified Plan: Head CT negative. Seems to be a baseline today. (3) Diabetes mellitus Code(s): E11.9 - Type 2 diabetes mellitus without complications Status: Acute Qualifiers: Diabetes mellitus type: type 2 Diabetes mellitus prison insulin use: with long term care administrator use Diabetes mellitus complication status: with kidney complications Diabetes mellitus complication detail: with chronic kidney disease Plan: Maintain blood sugars between 140 mg/dl to 180 mg/dl while hospitalized. Has SS available. Well controlled. (4) Hypertension Code(s): I10 - Essential (primary) hypertension Status: Acute Plan: Elevated. On amlodipine and coreg. Will add hydralazine TID. <Amena Roman - Last Filed: 09/17/18 08:40> - Assessment (1) Szpfa-aj-hycqtmn kidney injury Code(s): N17.9 - Acute kidney failure, unspecified; N18.9 - Chronic kidney disease, unspecified Status: Acute Qualifiers: Acute renal failure type: unspecified Chronic kidney disease stage: stage 4 (severe) Qualified Code(s): N17.9 - Acute kidney failure, unspecified; N18.4 - Chronic kidney disease, stage 4 (severe) Plan: Patient seen and examined, agree with above. Continue Bumex and Aldactone, Creatinine is slightly better, 3.5, from 3.7. (2) Altered mental status Code(s): R41.82 - Altered mental status, unspecified Status: Resolved Qualifiers: Altered mental status type: delirium Qualified Code(s): R41.0 - Disorientation, unspecified (3) Diabetes mellitus Code(s): E11.9 - Type 2 diabetes mellitus without complications Status: Acute Qualifiers: Diabetes mellitus type: type 2 Diabetes mellitus long term care administrator insulin use: with prison use Diabetes mellitus complication status: with kidney complications Diabetes mellitus complication detail: with chronic kidney disease (4) Hypertension Code(s): I10 - Essential (primary) hypertension Status: Acute <Silas Forrest - Last Filed: 09/17/18 21:14>
[2018-09-17] MEDS: Insulin NovoLOG Aspart Correctional Sugar Inj SQ SCH ×4 (09:35→20:26)
[2018-09-17] MEDS: Spironolactone 25 MG Tablet PO SCH ×2 (09:38→20:26)
[2018-09-17] MEDS: Senna/Docusate Sodium 8.6/50 MG Tablet PO SCH ×2 (09:38→20:25)
[2018-09-17] MEDS: hydrALAZINE 25 MG Tablet PO SCH ×3 (09:38→17:57)
[2018-09-17] MEDS: Carvedilol 6.25 MG Tablet PO SCH ×2 (09:39→20:26)
[2018-09-17] MEDS: amLODIPine 5 MG Tablet PO SCH ×2 (09:39→20:25)
--- NOTE | 2018-09-17 09:58 | P.PNFP ---
Subjective Interval history: 58-year-old female with a history of liver cirrhosis, CKD, diabetes, hypertension admitted with 1 day history of altered mental status and also found to have acute on chronic renal injury and hypertensive urgency. Now being seen for follow up. Today she feels well and is no longer confused. No chest pains, SOB, abdominal pain. Still has some swelling of the legs but states it is improving and that she has been peeing a lot with the medicine she's been getting. <Samuel Villa S - 09/17/18 09:58> Results - Labs Result diagrams: 09/17/18 05:55 09/17/18 05:55 <Joshua Pierre L - 09/17/18 17:19> Abnormal lab results 09/16/18 09/16/18 09/16/18 Range/Units 17:34 20:15 21:08 RBC (4.00-5.30) mil/mm3 Hgb 8.5 L (11.6-15.3) gm/dL Hct 23.2 L (35.0-46.0) % Plt Count (150-450) th/mm3 [place] % (Auto) (0.0-8.0) % Eos % (Auto) (0.0-4.0) % Chloride (98-107) meq/L BUN (7-18) mg/dL Creatinine (0.50-1.00) mg/dL Estimated GFR (>89) mL/min POC Glucose 136 H 167 H (68-110) mg/dl Albumin (3.4-5.0) g/dL MELE Screen (Neg) 09/17/18 09/17/18 09/17/18 Range/Units 05:55 05:55 05:55 RBC 2.62 L (4.00-5.30) mil/mm3 Hgb 8.7 L (11.6-15.3) gm/dL Hct 24.8 L (35.0-46.0) % Plt Count 123 L (150-450) th/mm3 [place] % (Auto) 11.6 H (0.0-8.0) % Eos % (Auto) 5.7 H (0.0-4.0) % Chloride 114 H (98-107) meq/L BUN 42 H (7-18) mg/dL Creatinine 3.54 H (0.50-1.00) mg/dL Estimated GFR 13 L (>89) mL/min POC Glucose (68-110) mg/dl Albumin 2.0 L (3.4-5.0) g/dL MELE Screen Pos H (Neg) 09/17/18 Range/Units 12:21 RBC (4.00-5.30) mil/mm3 Hgb (11.6-15.3) gm/dL Hct (35.0-46.0) % Plt Count (150-450) th/mm3 [place] % (Auto) (0.0-8.0) % Eos % (Auto) (0.0-4.0) % Chloride (98-107) meq/L BUN (7-18) mg/dL Creatinine (0.50-1.00) mg/dL Estimated GFR (>89) mL/min POC Glucose 156 H (68-110) mg/dl Albumin (3.4-5.0) g/dL MELE Screen (Neg) Short CBC 09/16/18 09/17/18 Range/Units 20:15 05:55 WBC 5.2 (4.0-11.0) th/mm3 Hgb 8.5 L 8.7 L (11.6-15.3) gm/dL Hct 23.2 L 24.8 L (35.0-46.0) % Plt Count 123 L (150-450) th/mm3 BMP 09/17/18 05:55 Sodium 145 Potassium 3.9 Chloride 114 H Carbon Dioxide 23.9 BUN 42 H Creatinine 3.54 H Calcium 9.9 Liver Function 09/17/18 Range/Units 05:55 Albumin 2.0 L (3.4-5.0) g/dL <Young,Joshua L - 09/17/18 17:19> Abnormal lab results 09/16/18 09/16/18 09/16/18 Range/Units 11:34 15:57 17:34 RBC (4.00-5.30) mil/mm3 Hgb 9.2 L 8.9 L (11.6-15.3) gm/dL Hct 26.0 L 24.9 L (35.0-46.0) % Plt Count (150-450) th/mm3 [place] % (Auto) (0.0-8.0) % Eos % (Auto) (0.0-4.0) % Chloride (98-107) meq/L BUN (7-18) mg/dL Creatinine (0.50-1.00) mg/dL Estimated GFR (>89) mL/min POC Glucose 136 H (68-110) mg/dl Albumin (3.4-5.0) g/dL 09/16/18 09/16/18 09/17/18 Range/Units 20:15 21:08 05:55 RBC 2.62 L (4.00-5.30) mil/mm3 Hgb 8.5 L 8.7 L (11.6-15.3) gm/dL Hct 23.2 L 24.8 L (35.0-46.0) % Plt Count 123 L (150-450) th/mm3 [place] % (Auto) 11.6 H (0.0-8.0) % Eos % (Auto) 5.7 H (0.0-4.0) % Chloride (98-107) meq/L BUN (7-18) mg/dL Creatinine (0.50-1.00) mg/dL Estimated GFR (>89) mL/min POC Glucose 167 H (68-110) mg/dl Albumin (3.4-5.0) g/dL 09/17/18 Range/Units 05:55 RBC (4.00-5.30) mil/mm3 Hgb (11.6-15.3) gm/dL Hct (35.0-46.0) % Plt Count (150-450) th/mm3 [place] % (Auto) (0.0-8.0) % Eos % (Auto) (0.0-4.0) % Chloride 114 H (98-107) meq/L BUN 42 H (7-18) mg/dL Creatinine 3.54 H (0.50-1.00) mg/dL Estimated GFR 13 L (>89) mL/min POC Glucose (68-110) mg/dl Albumin 2.0 L (3.4-5.0) g/dL Short CBC 09/16/18 09/16/18 09/16/18 Range/Units 11:34 15:57 20:15 WBC (4.0-11.0) th/mm3 Hgb 9.2 L 8.9 L 8.5 L (11.6-15.3) gm/dL Hct 26.0 L 24.9 L 23.2 L (35.0-46.0) % Plt Count (150-450) th/mm3 09/17/18 Range/Units 05:55 WBC 5.2 (4.0-11.0) th/mm3 Hgb 8.7 L (11.6-15.3) gm/dL Hct 24.8 L (35.0-46.0) % Plt Count 123 L (150-450) th/mm3 BMP 09/17/18 05:55 Sodium 145 Potassium 3.9 Chloride 114 H Carbon Dioxide 23.9 BUN 42 H Creatinine 3.54 H Calcium 9.9 Liver Function 09/17/18 Range/Units 05:55 Albumin 2.0 L (3.4-5.0) g/dL <Samuel Villa S - 09/17/18 09:58> - Imaging Impressions Abdomen/Bladder Ultrasound 09/16/18 00:00 CONCLUSION: 1. Cholelithiasis and ascites. <Samuel Villa S - 09/17/18 09:58> Physical Exam Vital signs: Vital Signs 09/16/18 20:00 09/16/18 23:20 09/17/18 00:00 Temperature 98.5 F 98.3 F Pulse Rate 58 L 54 L 50 L Respiratory Rate 18 17 Blood Pressure 174/72 H 169/71 H Pulse Oximetry 97 98 09/17/18 03:45 09/17/18 04:00 09/17/18 08:00 Temperature 98.4 F 97.8 F Pulse Rate 53 L 50 L 53 L Respiratory Rate 17 Blood Pressure 183/75 H 153/69 H Pulse Oximetry 98 97 09/17/18 12:00 09/17/18 16:00 Temperature 97.4 F L 98 F Pulse Rate 53 L 56 L Respiratory Rate 16 18 Blood Pressure 193/80 H 196/76 H Pulse Oximetry 99 99 Intake & Output 09/16/18 09/17/18 09/17/18 18:59 06:59 18:59 Output Total 200 / 200 Balance -200 / -200 Weight 61.5 kg Output: Urine 200 / 200 Other: # Voids 4 2 Date of Last Bowel Movement 09/14/18 09/16/18 09/15/18 <Joshua Pierre - 09/17/18 17:19> Vital Signs 09/16/18 12:00 09/16/18 16:00 09/16/18 20:00 Temperature 98.3 F 97.6 F 98.5 F Pulse Rate 62 54 L 58 L Respiratory Rate 18 18 Blood Pressure 192/77 H 185/79 H 174/72 H Pulse Oximetry 96 97 97 09/16/18 23:20 09/17/18 00:00 09/17/18 03:45 Temperature 98.3 F 98.4 F Pulse Rate 54 L 50 L 53 L Respiratory Rate Blood Pressure 169/71 H 183/75 H Pulse Oximetry 98 98 09/17/18 04:00 Temperature Pulse Rate 50 L Respiratory Rate Blood Pressure Pulse Oximetry Intake & Output 09/16/18 09/17/18 09/17/18 18:59 06:59 18:59 Output Total 200 / 200 Balance -200 / -200 Weight 61.5 kg Output: Urine 200 / 200 Other: # Voids 4 2 Date of Last Bowel Movement 09/14/18 09/16/18 <AllenSamuel S - 09/17/18 09:58> - Constitutional no acute distress, average body habitus <AllenSamuel S - 09/17/18 09:58> - Routine HEENT Exam Head: Present: normocephalic, atraumatic <Samuel Villa Gelacio - 09/17/18 09:58> ENT: Present: mucous membranes moist <AllenSamuel Gelacio - 09/17/18 09:58> - Routine Respiratory Exam Present: CTA bilaterally. Absent: accessory muscle use, respiratory distress, wheezes, crackles <Samuel Villa Gelacio - 09/17/18 09:58> - Routine Cardiovascular Exam Present: RRR, S1, S2, murmur (soft, blowing, systolic, 2/6, LUSB) <Samuel Villa Gelacio - 09/17/18 09:58> - Routine Extremities Exam Present: edema (1+ to BLE up to mid bowser level). Absent: cyanosis <Samuel Villa Gelacio - 09/17/18 09:58> - Routine Neurological Exam Present: alert, oriented X3, CN II-XII intact. Absent: sensory deficit, motor deficit <Samuel Villa Gelacio - 12/17/18 09:58> - Routine Psychiatric Exam Present: normal affect <Samuel Villa S - 09/17/18 09:58> Assessment and Plan - Assessment (1) Altered mental status Code(s): R41.82 - Altered mental status, unspecified Status: Resolved (2) Pvjlw-dl-feqkndn kidney injury Code(s): N17.9 - Acute kidney failure, unspecified; N18.9 - Chronic kidney disease, unspecified Status: Acute (3) Hypertensive urgency Code(s): I16.0 - Hypertensive urgency Status: Acute (4) Pleural effusion Code(s): J90 - Pleural effusion, not elsewhere classified Status: Acute (5) Cirrhosis of liver Code(s): K74.60 - Unspecified cirrhosis of liver Status: Chronic (6) Diabetes mellitus Code(s): E11.9 - Type 2 diabetes mellitus without complications Status: Acute (7) Hypercalcemia Code(s): E83.52 - Hypercalcemia Status: Resolved (8) Nutrition, metabolism, and development symptoms Code(s): R63.8 - Other symptoms and signs concerning food and fluid intake Status: Acute <Joshua Pierre - 09/17/18 17:19> (1) Altered mental status Code(s): R41.82 - Altered mental status, unspecified Status: Resolved Plan: AMS resolved, likely was due to acute on chronic renal disease which is now improving (see below) CT head negative, no focal deficits on exam, alert and oriented on admission No significant electrolyte abnormalities, however patient does have significant acute on chronic kidney injury Ammonia not elevated on admission Patient is significantly hypertensive on admission, the hypertensive urgency below UA, UDS on pending Per her sister, when pt has worsening renal problems it can cause some confusion. She is improving today. Her drug test shows marijuana use. Pt can be questioned about this as it can definitely contribute to confusion. -Continue to monitor clinically (2) Mgxsx-mm-xzuuwgj kidney injury Code(s): N17.9 - Acute kidney failure, unspecified; N18.9 - Chronic kidney disease, unspecified Status: Acute Plan: Patient with significantly elevated creatinine on admission, 3.74. Follows with [place] [facility] lead, reports baseline GFR of 22. Cr today improved to 3.5 UA with hematuria and proteinuria Hypoalbuminemia Urine Na 113 Urine Osm 392 Complement levels normal MELE, anti-dsDNA pending Anemia: Hgb stable around 9, asymptomatic Nephrology consulted, appreciate assistance Continue on Bumex 1 mg PO BID, spironolactone 25 mg PO BID Strict I/O Address HTN Will benefit from outpatient addition of HEIDI-I or ARB Electrolytes overall within normal limits, continue to monitor (3) Hypertensive urgency Code(s): I16.0 - Hypertensive urgency Status: Acute Plan: BP improving but still elevated above goal (target for her < 140/90 given CKD) EKG showed sinus bradycardia, heart rate 53, no ST changes -Telemetry -Continuing home amlodipine (increased to 5 mg BID), carvedilol -Hydralazine 25 mg PO TID -Diuretics as above -she has serious renal disease which is probably contributory, appreciate the help of Nephrology, see above (4) Pleural effusion Code(s): J90 - Pleural effusion, not elsewhere classified Status: Acute Plan: Chest x-ray on admission showed small left pleural effusion, slight consolidation and/or compressive collapse of left lung base medially Asymptomatic, lungs clear today Likely this was due to fluid overload status Diurese as noted above Monitor for clinical signs of effusion (5) Cirrhosis of liver Code(s): K74.60 - Unspecified cirrhosis of liver Status: Chronic Plan: Known history of liver cirrhosis, known history of hepatitis C Liver enzymes, bilirubin within normal limits 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 [facility] who can adjusts meds as needed -Monitor clinically, repeat LFTs as indicated (6) Diabetes mellitus Code(s): E11.9 - Type 2 diabetes mellitus without complications Status: Acute Plan: Known history of diabetes, takes insulin glargine 10 units at night Continue Low-dose sliding scale Target BG 140-180 (7) Hypercalcemia Code(s): E83.52 - Hypercalcemia Status: Resolved Plan: Mild hypercalcemia on admission, improving with diuresis (now 9.9) Monitor for now (8) Nutrition, metabolism, and development symptoms Code(s): R63.8 - Other symptoms and signs concerning food and fluid intake Status: Acute Plan: Encouraging p.o. intake <Samuel Villa S - 09/17/18 09:36> - Assessment and Plan Discharge Planning: Pending resolution of AMA and improvement in BP <Samuel Villa S - 09/17/18 09:58> - Attending Attestation The exam, history, and the medical decision-making described in the above note were completed with the assistance of the resident physician. I reviewed and agree with the findings presented. I attest that I had a [id number] encounter with the patient on the same day, and personally performed and documented my assessment and findings in the medical record. I evaluated patient independently this afternoon. She has altered mental status on admission that is now resolved. She had acute on chronic kidney disease, possibly her altered mental status is secondary to uremia. Also with history of cirrhosis but does not have hyperammonemia. 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 Does not report drug use , but THC positive. Lives alone, takes care of herself without much difficulty, but does have a sister that lives nearby that checks on her. States this has happened before, but last time was due to elevated ammonia levels. She had Harvoni treatment that she reports cured her hepatitis C. She is receiving diuresis for her acute renal injury and fluid overload, and renal function is improving. Workup for proteinuria from nephrology is pending, likely can be followed in outpatient setting. Disposition: likely home with home health once renal function back to baseline and fluid status is appropriate, mentation remains improved. <Joshua Pierre L - 09/17/18 17:19> <AllenSamy S - Last Filed: 09/17/18 09:36> (1) Altered mental status Qualifiers: Altered mental status type: delirium Qualified Code(s): R41.0 - Disorientation, unspecified (2) Ptsrr-sa-sivvsyf kidney injury Qualifiers: Acute renal failure type: unspecified Chronic kidney disease stage: stage 4 ( severe) Qualified Code(s): N17.9 - Acute kidney failure, unspecified; N18.4 - Chronic kidney disease, stage 4 (severe) (5) Cirrhosis of liver Qualifiers: Hepatic cirrhosis type: other cirrhosis Qualified Code(s): K74.69 - Other cirrhosis of liver (6) Diabetes mellitus Qualifiers: Diabetes mellitus type: type 2 Diabetes mellitus computer terminal operator insulin use: with computer terminal operator use Diabetes mellitus complication status: with kidney complications Diabetes mellitus complication detail: with chronic kidney disease <Joshua Pierre L - Last Filed: 09/17/18 17:19> (1) Altered mental status Qualifiers: Altered mental status type: delirium Qualified Code(s): R41.0 - Disorientation, unspecified (2) Gatcw-ll-ybrohfg kidney injury Qualifiers: Acute renal failure type: unspecified Chronic kidney disease stage: stage 4 ( severe) Qualified Code(s): N17.9 - Acute kidney failure, unspecified; N18.4 - Chronic kidney disease, stage 4 (severe) (5) Cirrhosis of liver Qualifiers: Hepatic cirrhosis type: other cirrhosis Qualified Code(s): K74.69 - Other cirrhosis of liver (6) Diabetes mellitus Qualifiers: Diabetes mellitus type: type 2 Diabetes mellitus computer terminal operator insulin use: with long-term use Diabetes mellitus complication status: with kidney complications Diabetes mellitus complication detail: with chronic kidney disease <Samuel Villa S - Last Filed: 09/17/18 09:36> (1) Altered mental status Qualifiers: Altered mental status type: delirium Qualified Code(s): R41.0 - Disorientation, unspecified (2) Gpztc-cr-dswtpta kidney injury Qualifiers: Acute renal failure type: unspecified Chronic kidney disease stage: stage 4 ( severe) Qualified Code(s): N17.9 - Acute kidney failure, unspecified; N18.4 - Chronic kidney disease, stage 4 (severe) (5) Cirrhosis of liver Qualifiers: Hepatic cirrhosis type: other cirrhosis Qualified Code(s): K74.69 - Other cirrhosis of liver (6) Diabetes mellitus Qualifiers: Diabetes mellitus type: type 2 Diabetes mellitus computer terminal operator insulin use: with computer terminal operator use Diabetes mellitus complication status: with kidney complications Diabetes mellitus complication detail: with chronic kidney disease <Joshua Pierre - Last Filed: 09/17/18 17:19> (1) Altered mental status Qualifiers: Altered mental status type: delirium Qualified Code(s): R41.0 - Disorientation, unspecified (2) Guwly-ld-bmatfaw kidney injury Qualifiers: Acute renal failure type: unspecified Chronic kidney disease stage: stage 4 ( severe) Qualified Code(s): N17.9 - Acute kidney failure, unspecified; N18.4 - Chronic kidney disease, stage 4 (severe) (5) Cirrhosis of liver Qualifiers: Hepatic cirrhosis type: other cirrhosis Qualified Code(s): K74.69 - Other cirrhosis of liver (6) Diabetes mellitus Qualifiers: Diabetes mellitus type: type 2 Diabetes mellitus computer terminal operator insulin use: with computer terminal operator use Diabetes mellitus complication status: with kidney complications Diabetes mellitus complication detail: with chronic kidney disease
[2018-09-17 15:02] LABS: Anti-Nuclear Antibody Screen Pos (Neg)
[2018-09-18 07:22] LABS: Hematocrit 25.4 % (35.0-46.0)
[2018-09-18 07:37] LABS: Albumin 2.1 g/dL (3.4-5.0); Carbon Dioxide 23.4 meq/L (21.0-32.0); Potassium 4.9 meq/L (3.5-5.1)
[2018-09-18] MEDS: Senna/Docusate Sodium 8.6/50 MG Tablet PO SCH ×2 (08:15→20:41)
[2018-09-18] MEDS: amLODIPine 5 MG Tablet PO SCH ×2 (08:16→20:40)
[2018-09-18] MEDS: hydrALAZINE 25 MG Tablet PO SCH ×2 (08:16→13:07)
[2018-09-18] MEDS: Carvedilol 6.25 MG Tablet PO SCH (08:16)
[2018-09-18] MEDS: Spironolactone 25 MG Tablet PO SCH (08:16)
[2018-09-18] MEDS: Insulin NovoLOG Aspart Correctional Sugar Inj SQ SCH ×4 (08:20→21:00)
--- NOTE | 2018-09-18 09:16 | P.PNFP ---
Subjective Interval history: 58-year-old female with a history of liver cirrhosis, CKD, diabetes, hypertension admitted with 1 day history of altered mental status and also found to have acute on chronic renal injury and hypertensive urgency. Now being seen for follow up. Today she feels well, feels her confusion has resolved. No chest pains or shortness of breath. Has been walking with PT and nursing without difficulty. <Samuel Villa S - 09/18/18 09:15> Results - Labs Result diagrams: 09/18/18 06:22 09/18/18 06:22 <Joshua Pierre L - 09/18/18 12:05> Abnormal lab results 09/17/18 09/17/18 09/17/18 Range/Units 05:55 12:21 17:38 Hgb (11.6-15.3) gm/dL Hct (35.0-46.0) % Chloride (98-107) meq/L BUN (7-18) mg/dL Creatinine (0.50-1.00) mg/dL Estimated GFR (>89) mL/min POC Glucose 156 H 166 H (68-110) mg/dl Random Glucose (74-106) mg/dL Albumin (3.4-5.0) g/dL MELE Screen Pos H (Neg) 09/17/18 09/18/18 09/18/18 Range/Units 20:11 06:22 06:22 Hgb 9.0 L (11.6-15.3) gm/dL Hct 25.4 L (35.0-46.0) % Chloride 113 H (98-107) meq/L BUN 43 H (7-18) mg/dL Creatinine 3.76 H (0.50-1.00) mg/dL Estimated GFR 12 L (>89) mL/min POC Glucose 157 H (68-110) mg/dl Random Glucose 109 H (74-106) mg/dL Albumin 2.1 L (3.4-5.0) g/dL MELE Screen (Neg) 09/18/18 Range/Units 08:14 Hgb (11.6-15.3) gm/dL Hct (35.0-46.0) % Chloride (98-107) meq/L BUN (7-18) mg/dL Creatinine (0.50-1.00) mg/dL Estimated GFR (>89) mL/min POC Glucose 118 H (68-110) mg/dl Random Glucose (74-106) mg/dL Albumin (3.4-5.0) g/dL MELE Screen (Neg) Short CBC 09/18/18 Range/Units 06:22 Hgb 9.0 L (11.6-15.3) gm/dL Hct 25.4 L (35.0-46.0) % BMP 09/18/18 06:22 Sodium 144 Potassium 4.9 D Chloride 113 H Carbon Dioxide 23.4 BUN 43 H Creatinine 3.76 H Calcium 10.0 Liver Function 09/18/18 Range/Units 06:22 Albumin 2.1 L (3.4-5.0) g/dL <Joshua Pierre L - 09/18/18 12:05> Abnormal lab results 09/17/18 09/17/18 09/17/18 Range/Units 05:55 12:21 17:38 Hgb (11.6-15.3) gm/dL Hct (35.0-46.0) % Chloride (98-107) meq/L BUN (7-18) mg/dL Creatinine (0.50-1.00) mg/dL Estimated GFR (>89) mL/min POC Glucose 156 H 166 H (68-110) mg/dl Random Glucose (74-106) mg/dL Albumin (3.4-5.0) g/dL MELE Screen Pos H (Neg) 09/17/18 09/18/18 09/18/18 Range/Units 20:11 06:22 06:22 Hgb 9.0 L (11.6-15.3) gm/dL Hct 25.4 L (35.0-46.0) % Chloride 113 H (98-107) meq/L BUN 43 H (7-18) mg/dL Creatinine 3.76 H (0.50-1.00) mg/dL Estimated GFR 12 L (>89) mL/min POC Glucose 157 H (68-110) mg/dl Random Glucose 109 H (74-106) mg/dL Albumin 2.1 L (3.4-5.0) g/dL MELE Screen (Neg) 09/18/18 Range/Units 08:14 Hgb (11.6-15.3) gm/dL Hct (35.0-46.0) % Chloride (98-107) meq/L BUN (7-18) mg/dL Creatinine (0.50-1.00) mg/dL Estimated GFR (>89) mL/min POC Glucose 118 H (68-110) mg/dl Random Glucose (74-106) mg/dL Albumin (3.4-5.0) g/dL MELE Screen (Neg) Short CBC 09/18/18 Range/Units 06:22 Hgb 9.0 L (11.6-15.3) gm/dL Hct 25.4 L (35.0-46.0) % BMP 09/18/18 06:22 Sodium 144 Potassium 4.9 D Chloride 113 H Carbon Dioxide 23.4 BUN 43 H Creatinine 3.76 H Calcium 10.0 Liver Function 09/18/18 Range/Units 06:22 Albumin 2.1 L (3.4-5.0) g/dL <Samuel Villa S - 09/18/18 09:15> - Imaging Head CT 09/15/18 15:59 CONCLUSION: Unremarkable study. Chest X-Ray 09/15/18 16:01 CONCLUSION: Small left pleural effusion not present previously with slight consolidation and/or compressive collapse left lung base medially. Chest CT 09/15/18 17:00 CONCLUSION: 1. Bilateral pleural effusions worse on the left with slight left lung base compressive collapse. 2. Cholelithiasis. 3. Cirrhotic liver with moderate amount of ascites upper abdomen. Abdomen/Bladder Ultrasound 09/16/18 00:00 CONCLUSION: 1. Cholelithiasis and ascites. <Samuel Villa S - 09/18/18 09:15> Physical Exam Vital signs: Vital Signs 09/17/18 16:00 09/17/18 17:58 09/17/18 20:00 Temperature 98 F Pulse Rate 56 L 56 L 57 L Respiratory Rate 18 Blood Pressure 196/76 H 164/71 H Pulse Oximetry 99 09/17/18 20:04 09/17/18 23:09 09/18/18 00:00 Temperature 98.6 F 98.3 F Pulse Rate 57 L 53 L 59 L Respiratory Rate 17 16 Blood Pressure 190/74 H 170/68 H Pulse Oximetry 98 99 09/18/18 05:00 09/18/18 08:11 Temperature 98.7 F 97.9 F Pulse Rate 60 57 L Respiratory Rate 16 16 Blood Pressure 167/70 H 143/63 H Pulse Oximetry 98 96 Intake & Output 09/17/18 09/18/18 09/18/18 18:59 06:59 18:59 Intake Total 300 / 300 Output Total 0 / 0 Balance 300 / 300 Weight 70.2 kg Intake: Oral 300 / 300 Output: Stool 0 / 0 Other: # Voids 2 4 Date of Last Bowel Movement 09/15/18 09/17/18 09/17/18 <Young,Joshua L - 09/18/18 12:05> Vital Signs 09/17/18 12:00 09/17/18 16:00 09/17/18 17:58 Temperature 97.4 F L 98 F Pulse Rate 53 L 56 L 56 L Respiratory Rate 16 18 Blood Pressure 193/80 H 196/76 H 164/71 H Pulse Oximetry 99 99 09/17/18 20:00 09/17/18 20:04 09/17/18 23:09 Temperature 98.6 F 98.3 F Pulse Rate 57 L 57 L 53 L Respiratory Rate 17 16 Blood Pressure 190/74 H 170/68 H Pulse Oximetry 98 99 09/18/18 00:00 09/18/18 05:00 09/18/18 08:11 Temperature 98.7 F 97.9 F Pulse Rate 59 L 60 57 L Respiratory Rate 16 16 Blood Pressure 167/70 H 143/63 H Pulse Oximetry 98 96 Intake & Output 09/17/18 09/18/18 09/18/18 18:59 06:59 18:59 Intake Total 300 / 300 Output Total 0 / 0 Balance 300 / 300 Weight 70.2 kg Intake: Oral 300 / 300 Output: Stool 0 / 0 Other: # Voids 2 4 Date of Last Bowel Movement 09/15/18 09/17/18 09/17/18 <Samuel Villa S - 09/18/18 09:15> - Constitutional no acute distress, average body habitus <Samuel Villa S - 09/18/18 09:15> - Routine HEENT Exam Head: Present: normocephalic, atraumatic <Samuel Villa S - 09/18/18 09:15> ENT: Present: mucous membranes moist <Samuel Villa S - 09/18/18 09:15> - Routine Respiratory Exam Present: CTA bilaterally. Absent: accessory muscle use, respiratory distress, wheezes, crackles <Samuel Villa S - 09/18/18 09:15> - Routine Cardiovascular Exam Present: RRR, S1, S2. Absent: murmur <Samuel Villa S - 09/18/18 09:15> - Routine Abdominal Exam Present: soft. Absent: tenderness, distended <Samuel Villa S - 09/18/18 09:15 > - Routine Extremities Exam Present: edema (trace edema to bilateral mid-bowser). Absent: cyanosis <Samuel Villa S - 09/18/18 09:15> - Routine Neurological Exam Present: alert, oriented X3, CN II-XII intact, moving all extremities, hearing grossly intact <Samuel Villa S - 09/18/18 09:15> Assessment and Plan - Assessment (1) Altered mental status Code(s): R41.82 - Altered mental status, unspecified Status: Resolved (2) Mqhic-ou-wpntwti kidney injury Code(s): N17.9 - Acute kidney failure, unspecified; N18.9 - Chronic kidney disease, unspecified Status: Acute (3) Hypertensive urgency Code(s): I16.0 - Hypertensive urgency Status: Resolved (4) Pleural effusion Code(s): J90 - Pleural effusion, not elsewhere classified Status: Acute (5) Cirrhosis of liver Code(s): K74.60 - Unspecified cirrhosis of liver Status: Chronic (6) Diabetes mellitus Code(s): E11.9 - Type 2 diabetes mellitus without complications Status: Acute (7) Hypercalcemia Code(s): E83.52 - Hypercalcemia Status: Resolved (8) Nutrition, metabolism, and development symptoms Code(s): R63.8 - Other symptoms and signs concerning food and fluid intake Status: Acute <Joshua Pierre - 09/18/18 12:05> (1) Altered mental status Code(s): R41.82 - Altered mental status, unspecified Status: Resolved Plan: AMS resolved, likely was due to acute on chronic renal disease which is now improving (see below) CT head negative, no focal deficits on exam, alert and oriented on admission No significant electrolyte abnormalities, however patient does have significant acute on chronic kidney injury Ammonia not elevated on admission Patient is significantly hypertensive on admission, the hypertensive urgency below UA, UDS on pending Per her sister, when pt has worsening renal problems it can cause some confusion. She is improving today. Her drug test shows marijuana use. Pt can be questioned about this as it can definitely contribute to confusion. -Continue to monitor clinically (2) Fngpc-we-chbssft kidney injury Code(s): N17.9 - Acute kidney failure, unspecified; N18.9 - Chronic kidney disease, unspecified Status: Acute Plan: GFR stable around 12-13 (Cr 3.5-3.7), possibly this is a new baseline for her. Reports prior baseline at GFR of 22. UA with hematuria and proteinuria Hypoalbuminemia Urine Na 113 Urine Osm 392 Complement levels normal MELE screen positive, titer pending Anti-dsDNA pending Anemia: Hgb stable around 9, asymptomatic Nephrology consulted, appreciate assistance Continue on Bumex 1 mg PO BID, spironolactone 25 mg PO BID Strict I/O Address HTN Will benefit from outpatient addition of HEIDI-I or ARB Electrolytes overall within normal limits, continue to monitor (3) Hypertensive urgency Code(s): I16.0 - Hypertensive urgency Status: Resolved Plan: Hypertensive urgency resolved but BP still elevated above goal (target for her < 140/90 given CKD) EKG showed sinus bradycardia, heart rate 53, no ST changes -Telemetry shows a few episodes of VT, likely artifactual -Continuing home amlodipine (increased to 5 mg BID), carvedilol -Hydralazine 25 mg PO TID -Diuretics as above -she has serious renal disease which is probably contributory, appreciate the help of Nephrology, see above (4) Pleural effusion Code(s): J90 - Pleural effusion, not elsewhere classified Status: Acute Plan: Chest x-ray on admission showed small left pleural effusion, slight consolidation and/or compressive collapse of left lung base medially Asymptomatic, lungs clear today Likely this was due to fluid overload status Diurese as noted above Monitor for clinical signs of effusion (5) Cirrhosis of liver Code(s): K74.60 - Unspecified cirrhosis of liver Status: Chronic Plan: Known history of liver cirrhosis, known history of hepatitis C Liver enzymes, bilirubin within normal limits 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 [facility] who can adjusts meds as needed -Monitor clinically, repeat LFTs as indicated (6) Diabetes mellitus Code(s): E11.9 - Type 2 diabetes mellitus without complications Status: Acute Plan: Known history of diabetes, takes insulin glargine 10 units at night BG at hospital target at the moment with SSI Continue Low-dose sliding scale Target BG 140-180 (7) Hypercalcemia Code(s): E83.52 - Hypercalcemia Status: Resolved Plan: Mild hypercalcemia on admission, improving with diuresis (stable around 10) Monitor daily (8) Nutrition, metabolism, and development symptoms Code(s): R63.8 - Other symptoms and signs concerning food and fluid intake Status: Acute Plan: Encouraging p.o. intake <Samuel Villa S - 09/18/18 09:05> - Assessment and Plan Discharge Planning: Pending clearance by nephrology, lupus labs. If this is lupus nephritis may need renal biopsy, but if GFR stable potentially this could be done as outpatient as she has good follow up with [place] disability rater <Samuel Villa S - 09/18/18 09:15> - Attending Attestation The exam, history, and the medical decision-making described in the above note were completed with the assistance of the resident physician. I reviewed and agree with the findings presented. I attest that I had a [id number] encounter with the patient on the same day, and personally performed and documented my assessment and findings in the medical record. I evaluated the patient this morning. She reports no chest pain, shortness of breath, abdominal pain, nausea, vomiting, diarrhea. She is inquiring about going home. Explained that nephrology workup is still pending. Her renal function is somewhat worsened compared to yesterday but may be at her new baseline. She is continuing diuretic therapy. She has mild edema in her ankles this morning. She reports normal urination. Continue to monitor intake/output, fluid status, and renal function, and continue to follow nephrology workup and nephrology recommendations. MELE positive, awaiting titer and pattern. <Joshua Pierre - 09/18/18 12:05> <VillaSamuel acosta S - Last Filed: 09/18/18 09:05> (1) Altered mental status Qualifiers: Altered mental status type: delirium Qualified Code(s): R41.0 - Disorientation, unspecified (2) Aqboq-dy-ultyzfc kidney injury Qualifiers: Acute renal failure type: unspecified Chronic kidney disease stage: stage 4 ( severe) Qualified Code(s): N17.9 - Acute kidney failure, unspecified; N18.4 - Chronic kidney disease, stage 4 (severe) (5) Cirrhosis of liver Qualifiers: Hepatic cirrhosis type: other cirrhosis Qualified Code(s): K74.69 - Other cirrhosis of liver (6) Diabetes mellitus Qualifiers: Diabetes mellitus type: type 2 Diabetes mellitus skilled nursing insulin use: with terminal system operator use Diabetes mellitus complication status: with kidney complications Diabetes mellitus complication detail: with chronic kidney disease <Joshua Pierre Ramiro - Last Filed: 09/18/18 12:05> (1) Altered mental status Qualifiers: Altered mental status type: delirium Qualified Code(s): R41.0 - Disorientation, unspecified (2) Mhmws-jz-yxpcten kidney injury Qualifiers: Acute renal failure type: unspecified Chronic kidney disease stage: stage 4 ( severe) Qualified Code(s): N17.9 - Acute kidney failure, unspecified; N18.4 - Chronic kidney disease, stage 4 (severe) (5) Cirrhosis of liver Qualifiers: Hepatic cirrhosis type: other cirrhosis Qualified Code(s): K74.69 - Other cirrhosis of liver (6) Diabetes mellitus Qualifiers: Diabetes mellitus type: type 2 Diabetes mellitus terminal system operator insulin use: with terminal system operator use Diabetes mellitus complication status: with kidney complications Diabetes mellitus complication detail: with chronic kidney disease <Samuel Villa - Last Filed: 09/18/18 09:05> (1) Altered mental status Qualifiers: Altered mental status type: delirium Qualified Code(s): R41.0 - Disorientation, unspecified (2) Mscfw-yb-jpaxrje kidney injury Qualifiers: Acute renal failure type: unspecified Chronic kidney disease stage: stage 4 ( severe) Qualified Code(s): N17.9 - Acute kidney failure, unspecified; N18.4 - Chronic kidney disease, stage 4 (severe) (5) Cirrhosis of liver Qualifiers: Hepatic cirrhosis type: other cirrhosis Qualified Code(s): K74.69 - Other cirrhosis of liver (6) Diabetes mellitus Qualifiers: Diabetes mellitus type: type 2 Diabetes mellitus terminal system operator insulin use: with skilled nursing use Diabetes mellitus complication status: with kidney complications Diabetes mellitus complication detail: with chronic kidney disease <Joshua Pierre - Last Filed: 09/18/18 12:05> (1) Altered mental status Qualifiers: Altered mental status type: delirium Qualified Code(s): R41.0 - Disorientation, unspecified (2) Ziipp-vx-gewmtdx kidney injury Qualifiers: Acute renal failure type: unspecified Chronic kidney disease stage: stage 4 ( severe) Qualified Code(s): N17.9 - Acute kidney failure, unspecified; N18.4 - Chronic kidney disease, stage 4 (severe) (5) Cirrhosis of liver Qualifiers: Hepatic cirrhosis type: other cirrhosis Qualified Code(s): K74.69 - Other cirrhosis of liver (6) Diabetes mellitus Qualifiers: Diabetes mellitus type: type 2 Diabetes mellitus terminal system operator insulin use: with skilled nursing use Diabetes mellitus complication status: with kidney complications Diabetes mellitus complication detail: with chronic kidney disease
--- NOTE | 2018-09-18 09:18 | P.DCO ---
- Physical Therapy Order: Evaluate and treat - Home Health Nursing Order: Medical education, Signs/symptoms of disease process, Medication education-adverse effect, Nursing assessment with vital signs - Case Management Consult Case Management Consult-Home Health: Yes - Certification I have seen patient Nita Ellison on 09/18/18. My clinical findings support the need for the requested home health care services because: Deconditioned with increased weakness I certify that my clinical findings support that this patient is homebound because: Unsteady gait/balance, Poor cardiac reserve
--- NOTE | 2018-09-18 15:33 | P.PNNP ---
Subjective Interval history: Seen in AM. Patient is doing well. Denies any shortness of breath, chest pain , nausea, or vomiting. Creatinine has increased at 3.76 today. <Amena Roman - Last Filed: 09/18/18 15:27> Physical Exam Vital signs: Vital Signs 09/17/18 16:00 09/17/18 17:58 09/17/18 20:00 Temperature 98 F Pulse Rate 56 L 56 L 57 L Respiratory Rate 18 Blood Pressure 196/76 H 164/71 H Pulse Oximetry 99 09/17/18 20:04 09/17/18 23:09 09/18/18 00:00 Temperature 98.6 F 98.3 F Pulse Rate 57 L 53 L 59 L Respiratory Rate 17 16 Blood Pressure 190/74 H 170/68 H Pulse Oximetry 98 99 09/18/18 05:00 09/18/18 08:11 09/18/18 12:00 Temperature 98.7 F 97.9 F 97.8 F Pulse Rate 60 57 L 59 L Respiratory Rate 16 16 16 Blood Pressure 167/70 H 143/63 H 158/65 H Pulse Oximetry 98 96 98 Intake & Output 09/17/18 09/18/18 09/18/18 18:59 06:59 18:59 Intake Total 300 / 300 Output Total 0 / 0 Balance 300 / 300 Weight 70.2 kg Intake: Oral 300 / 300 Output: Stool 0 / 0 Other: # Voids 2 4 Date of Last Bowel Movement 09/15/18 09/17/18 09/17/18 Narrative: GENERAL: Alert and oriented. NAD SKIN: Warm and dry. NECK: Trachea midline. No JVD. CARDIOVASCULAR: Regular rate and rhythm. Murmur appreciated RESPIRATORY: No accessory muscle use. Clear to auscultation diminished in bases. Breath sounds equal bilaterally. GASTROINTESTINAL: Abdomen soft, nontender no significant distention. + BS. MUSCULOSKELETAL: Extremities without clubbing, cyanosis. 1+ painful pitting edema to the level of the knees, improving. <Amena Roman - Last Filed: 09/18/18 15:27> Vital signs: Vital Signs 09/17/18 23:09 09/18/18 00:00 09/18/18 05:00 Temperature 98.3 F 98.7 F Pulse Rate 53 L 59 L 60 Respiratory Rate 16 16 Blood Pressure 170/68 H 167/70 H Pulse Oximetry 99 98 09/18/18 08:11 09/18/18 12:00 09/18/18 16:00 Temperature 97.9 F 97.8 F 98.0 F Pulse Rate 57 L 59 L 58 L Respiratory Rate 16 16 16 Blood Pressure 143/63 H 158/65 H 165/77 H Pulse Oximetry 96 98 98 09/18/18 19:10 Temperature 98.6 F Pulse Rate 56 L Respiratory Rate 18 Blood Pressure 145/96 H Pulse Oximetry 98 Intake & Output 09/18/18 09/18/18 09/19/18 06:59 18:59 06:59 Intake Total 300 / 300 560 / 560 Output Total 0 / 0 1400 / 1400 Balance 300 / 300 -840 / -840 Weight 70.2 kg Intake: Oral 300 / 300 560 / 560 Output: Urine 1400 / 1400 Stool 0 / 0 Other: # Voids 4 Date of Last Bowel Movement 09/17/18 09/17/18 # Bowel Movements 1 <Silas Forrest - Last Filed: 09/18/18 21:34> Assessment and Plan - Assessment (1) Gfxyv-fo-iojoycq kidney injury Code(s): N17.9 - Acute kidney failure, unspecified; N18.9 - Chronic kidney disease, unspecified Status: Acute Qualifiers: Acute renal failure type: unspecified Chronic kidney disease stage: stage 4 (severe) Qualified Code(s): N17.9 - Acute kidney failure, unspecified; N18.4 - Chronic kidney disease, stage 4 (severe) Plan: Acute kidney injury with a creatinine at 3.74 and potassium level of 3.5 on day of consult Patient is followed by Care Technician through the [facility] and was told that her last GFR was at 22. So has stage 4 chronic kidney disease. AMA possibly prerenal VS ATN Renal ultrasound with medical renal disease, no masses or hydronephrosis. Complements normal. MELE is positive. Recommend to hold Bumex for now with increase in creatinine. Fluids encouraged. Continue spironlactone 25 mg daily. Creatinine has increased from 3.5 to 3.7 today. With increased protein in urine patient could benefit from HEIDI or ARB at a later date when kidney function returns to baseline. Fluid balance and electrolytes stable. Awaiting rest of serology for further plan of care, MELE is positive may need kidney biopsy. Can possibly be done outpatient but would like to see improvement in creatinine prior to discharge. (2) Altered mental status Code(s): R41.82 - Altered mental status, unspecified Status: Resolved Qualifiers: Altered mental status type: delirium Qualified Code(s): R41.0 - Disorientation, unspecified Plan: Head CT negative. Seems to be a baseline today. 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 Has SS available. Well controlled. (4) Hypertension Code(s): I10 - Essential (primary) hypertension Status: Acute Plan: Elevated. On amlodipine and coreg. Hydralazine increased. <Amena Roman - Last Filed: 09/18/18 15:27> - Assessment (1) Nqrdw-rx-xalgrva kidney injury Code(s): N17.9 - Acute kidney failure, unspecified; N18.9 - Chronic kidney disease, unspecified Status: Acute Qualifiers: Acute renal failure type: unspecified Chronic kidney disease stage: stage 4 (severe) Qualified Code(s): N17.9 - Acute kidney failure, unspecified; N18.4 - Chronic kidney disease, stage 4 (severe) Plan: Patient seen and examined, agree with above. Creatinine remain elevated, MELE positive but Anti DNA is low, and complements normal, Will get 24 hr proteinuria, possible HD and kidney Biopsy. (2) Altered mental status Code(s): R41.82 - Altered mental status, unspecified Status: Resolved Qualifiers: Altered mental status type: delirium Qualified Code(s): R41.0 - Disorientation, unspecified (3) Diabetes mellitus Code(s): E11.9 - Type 2 diabetes mellitus without complications Status: Acute Qualifiers: Diabetes mellitus type: type 2 Diabetes mellitus residential insulin use: with residential use Diabetes mellitus complication status: with kidney complications Diabetes mellitus complication detail: with chronic kidney disease (4) Hypertension Code(s): I10 - Essential (primary) hypertension Status: Acute <Silas Forrest - Last Filed: 09/18/18 21:34>
[2018-09-18] MEDS: hydrALAZINE 50 MG Tablet PO SCH (17:24)
[2018-09-19 07:32] LABS: Calcium 9.7 mg/dL (8.5-10.1); Carbon Dioxide 23.8 meq/L (21.0-32.0); Magnesium 1.6 mg/dL (1.5-2.5); Phosphorus 2.8 mg/dL (2.5-4.9); Potassium 5.2 meq/L (3.5-5.1)
[2018-09-19] MEDS ORDERED: Spironolactone 25 MG Tablet PO SCH (09:00)
[2018-09-19] MEDS: Insulin NovoLOG Aspart Correctional Sugar Inj SQ SCH ×4 (09:05→21:45)
[2018-09-19] MEDS: hydrALAZINE 50 MG Tablet PO SCH ×3 (09:05→17:48)
[2018-09-19] MEDS: amLODIPine 5 MG Tablet PO SCH ×2 (09:05→21:25)
[2018-09-19] MEDS: Senna/Docusate Sodium 8.6/50 MG Tablet PO SCH ×2 (09:05→21:25)
[2018-09-19] MEDS: Carvedilol 6.25 MG Tablet PO SCH (09:05)
--- NOTE | 2018-09-19 09:24 | P.PNFP ---
Subjective Interval history: 58-year-old female with a history of liver cirrhosis, CKD, diabetes, hypertension admitted with 1 day history of altered mental status and also found to have acute on chronic renal injury and hypertensive urgency. Now being seen for follow up. Today she feels well, feels her confusion has resolved. No chest pains or shortness of breath. Has been walking with PT and nursing without difficulty. Reports good urine output, slightly less since stopping diuretic yesterday. No muscle aches/pains or spasms. <Samuel Welsh S - 09/19/18 09:23> Results - Labs Result diagrams: 09/18/18 06:22 09/19/18 05:36 <Joshua Pierre - 09/19/18 16:13> Abnormal lab results 09/17/18 09/18/18 09/19/18 Range/Units 05:55 20:55 05:36 Potassium 5.2 H (3.5-5.1) meq/L Chloride 111 H (98-107) meq/L BUN 45 H (7-18) mg/dL Creatinine 4.18 H (0.50-1.00) mg/dL Estimated GFR 11 L (>89) mL/min POC Glucose 141 H (68-110) mg/dl MELE Titer 1:40 H (Neg) MELE Pattern Speckled H (None) 09/19/18 Range/Units 12:07 Potassium (3.5-5.1) meq/L Chloride (98-107) meq/L BUN (7-18) mg/dL Creatinine (0.50-1.00) mg/dL Estimated GFR (>89) mL/min POC Glucose 113 H (68-110) mg/dl MELE Titer (Neg) MELE Pattern (None) [facility] 09/19/18 05:36 Sodium 140 Potassium 5.2 H Chloride 111 H Carbon Dioxide 23.8 BUN 45 H Creatinine 4.18 H Calcium 9.7 <Joshua Pierre - 09/19/18 16:13> Abnormal lab results 09/18/18 09/18/18 09/19/18 Range/Units 12:43 20:55 05:36 Potassium 5.2 H (3.5-5.1) meq/L Chloride 111 H (98-107) meq/L BUN 45 H (7-18) mg/dL Creatinine 4.18 H (0.50-1.00) mg/dL Estimated GFR 11 L (>89) mL/min POC Glucose 152 H 141 H (68-110) mg/dl BMP 09/19/18 05:36 Sodium 140 Potassium 5.2 H Chloride 111 H Carbon Dioxide 23.8 BUN 45 H Creatinine 4.18 H Calcium 9.7 <Allen PachecoSamuel S - 09/19/18 09:23> - Imaging Head CT 09/15/18 15:59 CONCLUSION: Unremarkable study. Chest X-Ray 09/15/18 16:01 CONCLUSION: Small left pleural effusion not present previously with slight consolidation and/or compressive collapse left lung base medially. Chest CT 09/15/18 17:00 CONCLUSION: 1. Bilateral pleural effusions worse on the left with slight left lung base compressive collapse. 2. Cholelithiasis. 3. Cirrhotic liver with moderate amount of ascites upper abdomen. Abdomen/Bladder Ultrasound 09/16/18 00:00 CONCLUSION: 1. Cholelithiasis and ascites. <Allen PachecoSamuel S - 09/19/18 09:23> Physical Exam Vital signs: Vital Signs 09/18/18 19:10 09/18/18 23:44 09/19/18 01:00 Temperature 98.6 F 98.2 F Pulse Rate 56 L 53 L Respiratory Rate 18 18 18 Blood Pressure 145/96 H 141/62 H Pulse Oximetry 98 97 09/19/18 03:27 09/19/18 06:38 09/19/18 08:00 Temperature 98.8 F 97.7 F Pulse Rate 57 L 58 L Respiratory Rate 17 18 16 Blood Pressure 145/65 H 140/62 Pulse Oximetry 98 97 09/19/18 12:00 Temperature 97.3 F L Pulse Rate 56 L Respiratory Rate 18 Blood Pressure 134/60 Pulse Oximetry 97 Intake & Output 09/18/18 09/19/18 09/19/18 18:59 06:59 18:59 Intake Total 560 / 560 Output Total 1400 / 1400 Balance -840 / -840 Intake: Oral 560 / 560 Output: Urine 1400 / 1400 Other: Date of Last Bowel Movement 09/17/18 09/17/18 09/18/18 # Bowel Movements 1 <Joshua Pierre L - 09/19/18 16:13> Vital Signs 09/18/18 12:00 09/18/18 16:00 09/18/18 19:10 Temperature 97.8 F 98.0 F 98.6 F Pulse Rate 59 L 58 L 56 L Respiratory Rate 16 16 18 Blood Pressure 158/65 H 165/77 H 145/96 H Pulse Oximetry 98 98 98 09/18/18 23:44 09/19/18 01:00 09/19/18 03:27 Temperature 98.2 F 98.8 F Pulse Rate 53 L 57 L Respiratory Rate 18 18 17 Blood Pressure 141/62 H 145/65 H Pulse Oximetry 97 98 09/19/18 06:38 Temperature Pulse Rate Respiratory Rate 18 Blood Pressure Pulse Oximetry Intake & Output 09/18/18 09/19/18 09/19/18 18:59 06:59 18:59 Intake Total 560 / 560 Output Total 1400 / 1400 Balance -840 / -840 Intake: Oral 560 / 560 Output: Urine 1400 / 1400 Other: Date of Last Bowel Movement 09/17/18 09/17/18 # Bowel Movements 1 <Villa R3,Samuel S - 09/19/18 09:23> - Constitutional no acute distress, average body habitus <Villa R3,Samuel S - 09/19/18 09:23> - Routine HEENT Exam Head: Present: normocephalic, atraumatic <Villa R3,Samuel S - 09/19/18 09:23> ENT: Present: mucous membranes moist <Villa R3,Samuel S - 09/19/18 09:23> - Routine Respiratory Exam Present: CTA bilaterally. Absent: accessory muscle use, decreased breath sounds , wheezes, crackles <Villa R3,Samuel S - 09/19/18 09:23> - Routine Cardiovascular Exam Present: RRR, S1, S2, murmur (soft blowing NADINE at LUSB) <Villa R3,Samuel S - 09/19/18 09:23> - Routine Extremities Exam Absent: cyanosis, edema <Villa R3,Samuel S - 09/19/18 09:23> - Routine Skin Exam Present: intact, dry <Villa R3,Samuel S - 09/19/18 09:23> - Routine Neurological Exam Present: alert, oriented X3, CN II-XII intact, moving all extremities < Villa R3,Samuel S - 12/19/18 09:23> - Detailed Neurological Exam: Coma Scale Eye Opening: Spontaneous <Samuel Welsh - 09/19/18 09:23> Verbal Response: Oriented <Samuel Welsh - 09/19/18 09:23> Motor Response: Obey commands <Samuel Welsh - 09/19/18 09:23> Percy Coma Scale Total: 15 <Samuel Welsh - 09/19/18 09:23> - Routine Psychiatric Exam Present: normal affect, normal thought process <Samuel Welsh - 09/19/18 09:23> Assessment and Plan - Assessment (1) Altered mental status Code(s): R41.82 - Altered mental status, unspecified Status: Resolved (2) Qnosz-iw-ykrxgou kidney injury Code(s): N17.9 - Acute kidney failure, unspecified; N18.9 - Chronic kidney disease, unspecified Status: Acute (3) Hypertension Code(s): I10 - Essential (primary) hypertension Status: Acute (4) Hyperkalemia Code(s): E87.5 - Hyperkalemia Status: Acute (5) Pleural effusion Code(s): J90 - Pleural effusion, not elsewhere classified Status: Acute (6) Cirrhosis of liver Code(s): K74.60 - Unspecified cirrhosis of liver Status: Chronic (7) Diabetes mellitus Code(s): E11.9 - Type 2 diabetes mellitus without complications Status: Acute (8) Hypercalcemia Code(s): E83.52 - Hypercalcemia Status: Resolved (9) Nutrition, metabolism, and development symptoms Code(s): R63.8 - Other symptoms and signs concerning food and fluid intake Status: Acute <Joshua Pierre - 09/19/18 16:13> (1) Altered mental status Code(s): R41.82 - Altered mental status, unspecified Status: Resolved Plan: AMS resolved, likely was due to acute on chronic renal disease which is now improving (see below) -Continue to monitor clinically (2) Rmsme-eu-gblhkuc kidney injury Code(s): N17.9 - Acute kidney failure, unspecified; N18.9 - Chronic kidney disease, unspecified Status: Acute Plan: GFR stable around 10-13 (Cr 3.5-3.7), possibly this is a new baseline for her, however today Cr worsened to 4.18 though GFR essentially unchanged. Reports prior baseline at GFR of 22. Clinically dry on exam UA with hematuria and proteinuria Hypoalbuminemia Urine Na 113 Urine Osm 392 Complement levels normal MELE screen positive, titer pending Anti-dsDNA negative ANCA studies pending Anemia: Hgb stable around 9, asymptomatic Nephrology consulted, appreciate assistance Continue spironolactone 25 mg PO BID Hold Bumex given slight worsening Cr Strict I/O Address HTN as below Will benefit from outpatient addition of HEIDI-I or ARB May need HD in hospital, possibly kidney biopsy Electrolytes with hyperkalemia, see below (3) Hypertension Code(s): I10 - Essential (primary) hypertension Status: Acute Plan: BP now much closer to goal (target for her < 140/90 given CKD) EKG showed sinus bradycardia, heart rate 53, no ST changes -Telemetry shows a few episodes of VT, likely artifactual, no events since noon yesterday -Continuing home amlodipine (increased to 5 mg BID) -Decreased carvedilol to daily dosing given bradycardia -Hydralazine increased to 50 mg PO TID -Spironolactone as above -she has serious renal disease which is probably contributory, appreciate the help of Nephrology, see above (4) Hyperkalemia Code(s): E87.5 - Hyperkalemia Status: Acute Plan: Due to renal disease, mild (level 5.2 today), asymptomatic Discontinue oral potassium (had been receiving while on diuretics, which are now held) Repeat potassium level this evening. If < 6 can give kayexelate or insulin + glucose, if > 6 may need both +/- dialysis Continue telemetry until hyperkalemia improves (5) Pleural effusion Code(s): J90 - Pleural effusion, not elsewhere classified Status: Acute Plan: Chest x-ray on admission showed small left pleural effusion, slight consolidation and/or compressive collapse of left lung base medially Asymptomatic, lungs clear today Likely this was due to fluid overload status Diurese as noted above Monitor for clinical signs of effusion (6) Cirrhosis of liver Code(s): K74.60 - Unspecified cirrhosis of liver Status: Chronic Plan: Known history of liver cirrhosis, known history of hepatitis C Liver enzymes, bilirubin within normal limits CT chest did cloth 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 she does have [facility]icing [facility] who can adjusts meds as needed -Monitor clinically, repeat LFTs as indicated (7) Diabetes mellitus Code(s): E11.9 - Type 2 diabetes mellitus without complications Status: Acute Plan: Known history of diabetes, takes insulin glargine 10 units at night BG at hospital target at the moment with SSI Continue Low-dose sliding scale Target BG 140-180 (8) Hypercalcemia Code(s): E83.52 - Hypercalcemia Status: Resolved Plan: Mild hypercalcemia on admission, now stable around 10 Monitor daily (9) Nutrition, metabolism, and development symptoms Code(s): R63.8 - Other symptoms and signs concerning food and fluid intake Status: Acute Plan: Encouraging p.o. intake <Allen Samuel Pacheco S - 09/19/18 09:12> - Assessment and Plan Discharge Planning: Pending stabilization/improvement of renal function (per nephrology may need HD) . Will also likely need renal biopsy however unclear whether or not this will be done inpatient or outpatient at this time. <Allen PachecoSamuel S - 09/19/18 09:23> - Attending Attestation The exam, history, and the medical decision-making described in the above note were completed with the assistance of the resident physician. I reviewed and agree with the findings presented. I attest that I had a bphu-nt-duug encounter with the patient on the same day, and personally performed and documented my assessment and findings in the medical record. I saw the patient independently this afternoon. She had family at the bedside. Discussed her worsened renal function today and her slightly elevated potassium. Discussed potential for temporary dialysis although it is too soon to tell if she will need it. It will depend largely on her renal function and electrolyte/fluid status, which we are observing. Agree with holding diuretics for now, especially the spironolactone given her elevated potassium today. Agree with repeating the BMP this afternoon to ensure she is not rapidly increasing her potassium level. Her lab studies show 1:40 titer of MELE, speckled pattern, which is a low titer and non-specific. She does not report dry mouth, dry eyes, history of mouth ulcers, malar rash, photosensitivity, skin tightness, etc. She does report a history of polyarthralgia, including swollen MCP's bilaterally. We will defer to nephrology whether a renal biopsy is indicated at this time given her proteinuria and hematuria. Also pending records from her pyridine operator. Will also follow the rest of her labs as they result. Will continue to follow her course, and appreciate the assistance of nephrology. <Joshua Pierre - 09/19/18 16:13> <Samuel Welsh S - Last Filed: 09/19/18 09:12> (1) Altered mental status Qualifiers: Altered mental status type: delirium Qualified Code(s): R41.0 - Disorientation, unspecified (2) Qmiuf-wk-tphocpc kidney injury Qualifiers: Acute renal failure type: unspecified Chronic kidney disease stage: stage 4 ( severe) Qualified Code(s): N17.9 - Acute kidney failure, unspecified; N18.4 - Chronic kidney disease, stage 4 (severe) (3) Hypertension Qualifiers: Hypertension type: essential hypertension Qualified Code(s): I10 - Essential (primary) hypertension (6) Cirrhosis of liver Qualifiers: Hepatic cirrhosis type: other cirrhosis Qualified Code(s): K74.69 - Other cirrhosis of liver (7) Diabetes mellitus Qualifiers: Diabetes mellitus type: type 2 Diabetes mellitus termite renewal inspector insulin use: with termite renewal inspector use Diabetes mellitus complication status: with kidney complications Diabetes mellitus complication detail: with chronic kidney disease <Joshua Pierre - Last Filed: 09/19/18 16:13> (1) Altered mental status Qualifiers: Altered mental status type: delirium Qualified Code(s): R41.0 - Disorientation, unspecified (2) Pybgc-gz-pzcedyx kidney injury Qualifiers: Acute renal failure type: unspecified Chronic kidney disease stage: stage 4 ( severe) Qualified Code(s): N17.9 - Acute kidney failure, unspecified; N18.4 - Chronic kidney disease, stage 4 (severe) (3) Hypertension Qualifiers: Hypertension type: essential hypertension Qualified Code(s): I10 - Essential (primary) hypertension (6) Cirrhosis of liver Qualifiers: Hepatic cirrhosis type: other cirrhosis Qualified Code(s): K74.69 - Other cirrhosis of liver (7) Diabetes mellitus Qualifiers: Diabetes mellitus type: type 2 Diabetes mellitus termite renewal inspector insulin use: with snf use Diabetes mellitus complication status: with kidney complications Diabetes mellitus complication detail: with chronic kidney disease <Samuel Welsh S - Last Filed: 09/19/18 09:12> (1) Altered mental status Qualifiers: Altered mental status type: delirium Qualified Code(s): R41.0 - Disorientation, unspecified (2) Xzlcr-te-lyunzjh kidney injury Qualifiers: Acute renal failure type: unspecified Chronic kidney disease stage: stage 4 ( severe) Qualified Code(s): N17.9 - Acute kidney failure, unspecified; N18.4 - Chronic kidney disease, stage 4 (severe) (3) Hypertension Qualifiers: Hypertension type: essential hypertension Qualified Code(s): I10 - Essential (primary) hypertension (6) Cirrhosis of liver Qualifiers: Hepatic cirrhosis type: other cirrhosis Qualified Code(s): K74.69 - Other cirrhosis of liver (7) Diabetes mellitus Qualifiers: Diabetes mellitus type: type 2 Diabetes mellitus snf insulin use: with snf use Diabetes mellitus complication status: with kidney complications Diabetes mellitus complication detail: with chronic kidney disease <Joshua Pierre L - Last Filed: 09/19/18 16:13> (1) Altered mental status Qualifiers: Altered mental status type: delirium Qualified Code(s): R41.0 - Disorientation, unspecified (2) Otkxg-mj-qvhlnpq kidney injury Qualifiers: Acute renal failure type: unspecified Chronic kidney disease stage: stage 4 ( severe) Qualified Code(s): N17.9 - Acute kidney failure, unspecified; N18.4 - Chronic kidney disease, stage 4 (severe) (3) Hypertension Qualifiers: Hypertension type: essential hypertension Qualified Code(s): I10 - Essential (primary) hypertension (6) Cirrhosis of liver Qualifiers: Hepatic cirrhosis type: other cirrhosis Qualified Code(s): K74.69 - Other cirrhosis of liver (7) Diabetes mellitus Qualifiers: Diabetes mellitus type: type 2 Diabetes mellitus termite renewal inspector insulin use: with termite renewal inspector use Diabetes mellitus complication status: with kidney complications Diabetes mellitus complication detail: with chronic kidney disease
--- NOTE | 2018-09-19 10:45 | P.PNNP ---
Addendum entered and electronically signed by SANDY Fry 09/19/18 15:21: Will proceed with renal biopsy and permacath placement tomorrow. HD on Monday. Original Note: Subjective Interval history: No acute events overnight. Denies any shortness of breath, chest pain, nausea, or vomiting. Creatinine continues to increase at 4.18, mild hyperkalemia at 5.2. <Amena Roman - Last Filed: 09/19/18 10:38> Physical Exam Vital signs: Vital Signs 09/18/18 12:00 09/18/18 16:00 09/18/18 19:10 Temperature 97.8 F 98.0 F 98.6 F Pulse Rate 59 L 58 L 56 L Respiratory Rate 16 16 18 Blood Pressure 158/65 H 165/77 H 145/96 H Pulse Oximetry 98 98 98 09/18/18 23:44 09/19/18 01:00 09/19/18 03:27 Temperature 98.2 F 98.8 F Pulse Rate 53 L 57 L Respiratory Rate 18 18 17 Blood Pressure 141/62 H 145/65 H Pulse Oximetry 97 98 09/19/18 06:38 09/19/18 08:00 Temperature 97.7 F Pulse Rate 58 L Respiratory Rate 18 16 Blood Pressure 140/62 Pulse Oximetry 97 Intake & Output 09/18/18 09/19/18 09/19/18 18:59 06:59 18:59 Intake Total 560 / 560 Output Total 1400 / 1400 Balance -840 / -840 Intake: Oral 560 / 560 Output: Urine 1400 / 1400 Other: Date of Last Bowel Movement 09/17/18 09/17/18 # Bowel Movements 1 Narrative: GENERAL: Alert and oriented. NAD SKIN: Warm and dry. NECK: Trachea midline. No JVD. CARDIOVASCULAR: Regular rate and rhythm. Murmur appreciated RESPIRATORY: No accessory muscle use. Clear to auscultation diminished in bases. Breath sounds equal bilaterally. GASTROINTESTINAL: Abdomen soft, nontender no significant distention. + BS. MUSCULOSKELETAL: Extremities without clubbing, cyanosis. <Amena Roman - Last Filed: 09/19/18 10:38> Vital signs: Vital Signs 09/18/18 23:44 09/19/18 01:00 09/19/18 03:27 Temperature 98.2 F 98.8 F Pulse Rate 53 L 57 L Respiratory Rate 18 18 17 Blood Pressure 141/62 H 145/65 H Pulse Oximetry 97 98 09/19/18 06:38 09/19/18 08:00 09/19/18 12:00 Temperature 97.7 F 97.3 F L Pulse Rate 58 L 56 L Respiratory Rate 18 16 18 Blood Pressure 140/62 134/60 Pulse Oximetry 97 97 09/19/18 16:00 09/19/18 19:17 Temperature 97.3 F L 98.6 F Pulse Rate 58 L 63 Respiratory Rate 18 18 Blood Pressure 144/67 H 135/60 Pulse Oximetry 98 97 Intake & Output 09/19/18 09/19/18 09/20/18 06:59 18:59 06:59 Output Total 100 / 100 Balance -100 / -100 Output: Urine 100 / 100 Other: Date of Last Bowel Movement 09/17/18 09/18/18 <Silas Forrest - Last Filed: 09/19/18 22:52> Assessment and Plan - Assessment (1) Ilygr-rh-kkvsgxi kidney injury Code(s): N17.9 - Acute kidney failure, unspecified; N18.9 - Chronic kidney disease, unspecified Status: Acute Qualifiers: Acute renal failure type: unspecified Chronic kidney disease stage: stage 4 (severe) Qualified Code(s): N17.9 - Acute kidney failure, unspecified; N18.4 - Chronic kidney disease, stage 4 (severe) Plan: Acute kidney injury with a creatinine at 3.74 and potassium level of 3.5 on day of consult Patient is [facility] Staff Electrical [facility] and was told that her last GFR was at 22. So has stage 4 chronic kidney disease. AMA possibly prerenal VS ATN Renal ultrasound with medical renal disease, no masses or hydronephrosis. Complements normal. MELE is positive. Recommend to hold Bumex and spironolactone with increase in creatinine. Fluids encouraged. 24 hour urine of proteinuria ordered. Fluid balance stable, potassium level slightly elevated at 5.2 but was on replacement which has now been discontinued. MELE is positive, AntiDNA low, complements normal. Possible HD and kidney biopsy. Family to bring in labs from outpatient today for further evaluation of baseline. (2) Altered mental status Code(s): R41.82 - Altered mental status, unspecified Status: Resolved Qualifiers: Altered mental status type: delirium Qualified Code(s): R41.0 - Disorientation, unspecified Plan: Head CT negative. Resolved. (3) Diabetes mellitus Code(s): E11.9 - Type 2 diabetes mellitus without complications Status: Acute Qualifiers: Diabetes mellitus type: type 2 Diabetes mellitus oil heaterman insulin use: with correction use Diabetes mellitus complication status: with kidney complications Diabetes mellitus complication detail: with chronic kidney disease Plan: Maintain blood sugars between 140 mg/dl to 180 mg/dl while hospitalized. Has SS available. Well controlled. (4) Hypertension Code(s): I10 - Essential (primary) hypertension Status: Acute Qualifiers: Hypertension type: essential hypertension Qualified Code(s): I10 - Essential (primary) hypertension Plan: Better controlled. On amlodipine, hydralazine, and coreg. <Amena Roman - Last Filed: 09/19/18 10:38> - Assessment (1) Jpirb-jp-xxunzwd kidney injury Code(s): N17.9 - Acute kidney failure, unspecified; N18.9 - Chronic kidney disease, unspecified Status: Acute Qualifiers: Acute renal failure type: unspecified Chronic kidney disease stage: stage 4 (severe) Qualified Code(s): N17.9 - Acute kidney failure, unspecified; N18.4 - Chronic kidney disease, stage 4 (severe) Plan: Patient seen and examined, agree with above. I saw the labs from past, patient has gradual worsening in the Creatinine from 1.8-2.5 in last 1 year. Has proteinuria and rapid worsening in the renal function. Need Renal Biopsy to diagnosis. To start HD as GFR remain low and patient has some uremic symptoms. (2) Altered mental status Code(s): R41.82 - Altered mental status, unspecified Status: Resolved Qualifiers: Altered mental status type: delirium Qualified Code(s): R41.0 - Disorientation, unspecified (3) Diabetes mellitus Code(s): E11.9 - Type 2 diabetes mellitus without complications Status: Acute Qualifiers: Diabetes mellitus type: type 2 Diabetes mellitus correction insulin use: with correction use Diabetes mellitus complication status: with kidney complications Diabetes mellitus complication detail: with chronic kidney disease (4) Hypertension Code(s): I10 - Essential (primary) hypertension Status: Acute Qualifiers: Hypertension type: essential hypertension Qualified Code(s): I10 - Essential (primary) hypertension <Silas Forrest - Last Filed: 09/19/18 22:52>
[2018-09-19 11:39] LABS: Anti-Nuclear Antibody Pattern Speckled; Anti-Nuclear Antibody Titer 1:40 (Neg)
--- NOTE | 2018-09-19 13:40 | P.DIET ---
Nutritional Evaluation Type of nutrition evaluation: initial Nutrition screening: [facility] [place] ([facility] [place] for diet education ) Objective - Diagnosis AMA, pleural effusions, dizziness, confusion - Objective Body Mass Index: 28 Energy Needs - Lower Range (kCal/kg): 28 Energy Needs - Upper Range (kCal/kg): 32 Lower Limit kCal/kg (kCals): 1,960 Upper Limit kCal/kg (kCals): 2,240 Lower Limit Protein Factor (Grams per Kg): 0.6 (CKD stage 4) Upper Limit Protein Factor (Grams per Kg): 0.8 (CKD stage 4 ) Lower Protein Needs (Protein): 42 Upper Protein Needs (Protein): 56 Dietitian Reviewed in Medical Record: Current diet, Curent medications, Intake & Output, Labs, Medical history Diet Order: Renal diet 2g Na Oral Diet Intake Amount: Excellent 90%+ Objective Comments: PMH; cirrhosis of the liver, DM, Hepatitis C, HTN, renal insufficiency Labs; K 5.2, BUN 45, Cr 4.18, GFR 11 Medications; reviewed Assessment Assessment: [facility] [place] for diet education. Pt with CKD stage 4. Provided renal diet education and handouts for pt and two family members. Discussed several foods to limit or avoid 2/2 sodium/potassium/phos content and foods to replace them with. Pt and family members very receptive and appreciative for materials and education. Reviewed pt's labs, medications and clinical course. Please consult RD if needed. Recommendations: 1. Use educational materials to follow renal diet
[2018-09-19] MEDS ORDERED: Vancomycin Inj 1 GM/200 ML PIGGYBACK IV.SIG SCH (16:00)
[2018-09-20] MEDS ORDERED: Chlorhexidine Gluconate 2% 1 Pack (2 Cloths) TOPICAL ONE (00:40)
[2018-09-20] MEDS ORDERED: Sodium Chlor 0.9% Inj 500 ML IV.SIG SCH (01:00)
[2018-09-20 05:57] LABS: Baso # (Auto) 0.1 th/mm3 (0.0-0.2); Baso % (Auto) 1.9 % (0.0-2.0); Eos # (Auto) 0.3 th/mm3 (0.0-0.4); Eos % (Auto) 4.7 % (0.0-4.0); Hematocrit 25.3 % (35.0-46.0); Hemoglobin 8.6 gm/dL (11.6-15.3); Lymph # (Auto) 1.3 th/mm3 (1.0-4.8); Lymph % (Auto) 21.6 % (9.0-44.0); Mean Corpuscular Hemoglobin 32.9 pg (27.0-34.0); Mean Corpuscular Volume 96.7 fL (80.0-100.0); Mean Platelet Volume 8.6 fL (7.0-11.0); Mono # (Auto) 0.8 th/mm3 (0.0-0.9); Mono % (Auto) 12.7 % (0.0-8.0); Neut # (Auto) 3.5 th/mm3 (1.8-7.7); Neut % (Auto) 59.1 % (16.0-70.0); Platelet Count 150 th/mm3 (150-450); Red Blood Count 2.62 mil/mm3 (4.00-5.30); Red Cell Distribution Width 15.9 % (11.6-17.2); White Blood Count 5.9 th/mm3 (4.0-11.0)
[2018-09-20 06:26] LABS: Calcium 9.4 mg/dL (8.5-10.1); Carbon Dioxide 23.5 meq/L (21.0-32.0); Phosphorus 3.2 mg/dL (2.5-4.9); Potassium 5.2 meq/L (3.5-5.1)
[2018-09-20] MEDS: Insulin NovoLOG Aspart Correctional Sugar Inj SQ SCH ×5 (08:00→21:39)
[2018-09-20] MEDS: Carvedilol 6.25 MG Tablet PO SCH (08:01)
[2018-09-20] MEDS: Senna/Docusate Sodium 8.6/50 MG Tablet PO SCH ×3 (08:01→21:39)
[2018-09-20] MEDS: hydrALAZINE 50 MG Tablet PO SCH ×3 (08:01→17:53)
[2018-09-20] MEDS: amLODIPine 5 MG Tablet PO SCH ×3 (08:01→21:38)
[2018-09-20] MEDS ORDERED: fentaNYL Citrate Inj 250 MCG/5 ML Ampul ONE ×2 (09:45→11:22)
--- NOTE | 2018-09-20 10:37 | P.DCO ---
- Diagnosis (1) Chronic kidney disease (CKD) Status: Chronic (2) ESRD (end stage renal disease) Status: Chronic - Physical Therapy Order: Evaluate and treat - Home Health Nursing Order: Medical education, Signs/symptoms of disease process, Nursing assessment with vital signs - Case Management Consult Case Management Consult-Home Health: Yes - Certification I have seen patient Nita Ellison on 09/20/18. My clinical findings support the need for the requested home health care services because: Deconditioned with increased weakness, Need for psychosocial assistance I certify that my clinical findings support that this patient is homebound because: Unsteady gait/balance, Need for psychosocial assistance (1) Chronic kidney disease (CKD) Qualifiers: Chronic kidney disease stage: stage 5, not on chronic dialysis Qualified Code (s): N18.5 - Chronic kidney disease, stage 5
--- NOTE | 2018-09-20 10:42 | P.RAD ---
Post CT Procedure Prog Note - Pre Procedure Diagnosis (1) Acute kidney injury - Post Procedure Diagnosis (1) Acute kidney injury - Procedure Information Procedure Date: 09/20/18 Supervising Radiologist: Dagoberto Watkins Jr, MD Proceduralist/Assist: Ximena Estimated blood loss (mL): 0 Anesthesia: Conscious Sedation - Plan of Activity Patient to Unit: ROPU Patient condition: Good See PACS Report for procedural detail/treatment. Biopsy CT right Kidney Specimen: Core Biopsy Findings: 2 core samples for function of right kidney. Gelfoam utilized. No hemorrhage on post images. Plan: To ROPU
--- NOTE | 2018-09-20 10:44 | P.PNFP ---
Subjective Interval history: 58-year-old female with a history of liver cirrhosis, CKD, diabetes, hypertension admitted with 1 day history of altered mental status and also found to have acute on chronic renal injury and hypertensive urgency. Now being seen for follow up. Today she feels well, feels her confusion has resolved. No chest pains or shortness of breath. Has been walking with PT and nursing without difficulty. Reports good urine output, approx 3 urinations of about 300 cc per patient. No muscle aches/pains or spasms. <Samuel Welsh S - 09/20/18 10:44> Results - Labs Result diagrams: 09/20/18 10:50 09/20/18 05:12 <Joshua Pierre - 09/20/18 12:16> Abnormal lab results 09/19/18 09/19/18 09/19/18 Range/Units 12:07 17:38 21:30 RBC (4.00-5.30) mil/mm3 Hgb (11.6-15.3) gm/dL Hct (35.0-46.0) % Stanton % (Auto) (0.0-8.0) % Eos % (Auto) (0.0-4.0) % Potassium (3.5-5.1) meq/L Chloride (98-107) meq/L BUN (7-18) mg/dL Creatinine (0.50-1.00) mg/dL Estimated GFR (>89) mL/min POC Glucose 113 H 143 H 157 H (68-110) mg/dl Ur Total Protein 24 Hr (0-150) mg/24hr 09/20/18 09/20/18 09/20/18 Range/Units 02:51 05:12 05:12 RBC 2.62 L (4.00-5.30) mil/mm3 Hgb 8.6 L (11.6-15.3) gm/dL Hct 25.3 L (35.0-46.0) % Stanton % (Auto) 12.7 H (0.0-8.0) % Eos % (Auto) 4.7 H (0.0-4.0) % Potassium 5.2 H (3.5-5.1) meq/L Chloride 111 H (98-107) meq/L BUN 45 H (7-18) mg/dL Creatinine 4.68 H (0.50-1.00) mg/dL Estimated GFR 10 L (>89) mL/min POC Glucose (68-110) mg/dl Ur Total Protein 24 Hr 1817 H (0-150) mg/24hr 09/20/18 Range/Units 10:50 RBC 2.61 L (4.00-5.30) mil/mm3 Hgb 8.8 L (11.6-15.3) gm/dL Hct 24.9 L (35.0-46.0) % Stanton % (Auto) 11.3 H (0.0-8.0) % Eos % (Auto) 5.4 H (0.0-4.0) % Potassium (3.5-5.1) meq/L Chloride (98-107) meq/L BUN (7-18) mg/dL Creatinine (0.50-1.00) mg/dL Estimated GFR (>89) mL/min POC Glucose (68-110) mg/dl Ur Total Protein 24 Hr (0-150) mg/24hr Short CBC 09/20/18 09/20/18 Range/Units 05:12 10:50 WBC 5.9 6.4 (4.0-11.0) th/mm3 Hgb 8.6 L 8.8 L (11.6-15.3) gm/dL Hct 25.3 L 24.9 L (35.0-46.0) % Plt Count 150 169 (150-450) th/mm3 BMP 09/19/18 09/20/18 17:10 05:12 Sodium 141 Potassium 5.1 5.2 H Chloride 111 H Carbon Dioxide 23.5 BUN 45 H Creatinine 4.68 H Calcium 9.4 <Young,Joshua L - 09/20/18 12:16> Abnormal lab results 09/17/18 09/19/18 09/19/18 Range/Units 05:55 12:07 17:38 RBC (4.00-5.30) mil/mm3 Hgb (11.6-15.3) gm/dL Hct (35.0-46.0) % Stanton % (Auto) (0.0-8.0) % Eos % (Auto) (0.0-4.0) % Potassium (3.5-5.1) meq/L Chloride (98-107) meq/L BUN (7-18) mg/dL Creatinine (0.50-1.00) mg/dL Estimated GFR (>89) mL/min POC Glucose 113 H 143 H (68-110) mg/dl Ur Total Protein 24 Hr (0-150) mg/24hr MELE Titer 1:40 H (Neg) MELE Pattern Speckled H (None) 09/19/18 09/20/18 09/20/18 Range/Units 21:30 02:51 05:12 RBC (4.00-5.30) mil/mm3 Hgb (11.6-15.3) gm/dL Hct (35.0-46.0) % Stanton % (Auto) (0.0-8.0) % Eos % (Auto) (0.0-4.0) % Potassium 5.2 H (3.5-5.1) meq/L Chloride 111 H (98-107) meq/L BUN 45 H (7-18) mg/dL Creatinine 4.68 H (0.50-1.00) mg/dL Estimated GFR 10 L (>89) mL/min POC Glucose 157 H (68-110) mg/dl Ur Total Protein 24 Hr 1817 H (0-150) mg/24hr MELE Titer (Neg) MELE Pattern (None) 09/20/18 Range/Units 05:12 RBC 2.62 L (4.00-5.30) mil/mm3 Hgb 8.6 L (11.6-15.3) gm/dL Hct 25.3 L (35.0-46.0) % Stanton % (Auto) 12.7 H (0.0-8.0) % Eos % (Auto) 4.7 H (0.0-4.0) % Potassium (3.5-5.1) meq/L Chloride (98-107) meq/L BUN (7-18) mg/dL Creatinine (0.50-1.00) mg/dL Estimated GFR (>89) mL/min POC Glucose (68-110) mg/dl Ur Total Protein 24 Hr (0-150) mg/24hr MELE Titer (Neg) MELE Pattern (None) Short CBC 09/20/18 Range/Units 05:12 WBC 5.9 (4.0-11.0) th/mm3 Hgb 8.6 L (11.6-15.3) gm/dL Hct 25.3 L (35.0-46.0) % Plt Count 150 (150-450) th/mm3 BMP 09/19/18 09/20/18 17:10 05:12 Sodium 141 Potassium 5.1 5.2 H Chloride 111 H Carbon Dioxide 23.5 BUN 45 H Creatinine 4.68 H Calcium 9.4 <Allen R3,Samuel S - 09/20/18 10:44> - Imaging Impressions Renal Biopsy CT 09/20/18 09:13 CONCLUSION: 1. Uncomplicated CT guided right renal biopsy for function. <Joshua Pierre L - 09/20/18 12:16> Head CT 09/15/18 15:59 CONCLUSION: Unremarkable study. Chest X-Ray 09/15/18 16:01 CONCLUSION: Small left pleural effusion not present previously with slight consolidation and/or compressive collapse left lung base medially. Chest CT 09/15/18 17:00 CONCLUSION: 1. Bilateral pleural effusions worse on the left with slight left lung base compressive collapse. 2. Cholelithiasis. 3. Cirrhotic liver with moderate amount of ascites upper abdomen. Abdomen/Bladder Ultrasound 09/16/18 00:00 CONCLUSION: 1. Cholelithiasis and ascites. <Allen R3,Samuel S - 09/20/18 10:44> Physical Exam Vital signs: Vital Signs 09/19/18 16:00 09/19/18 19:17 09/19/18 23:22 Temperature 97.3 F L 98.6 F 98.2 F Pulse Rate 58 L 63 61 Respiratory Rate 18 18 17 Blood Pressure 144/67 H 135/60 134/62 Pulse Oximetry 98 97 98 09/19/18 23:55 09/20/18 03:12 09/20/18 07:50 Temperature 98.3 F 98.5 F Pulse Rate 65 60 59 L Respiratory Rate 18 17 Blood Pressure 131/69 147/64 H Pulse Oximetry 97 97 09/20/18 10:40 Temperature 97.6 F Pulse Rate 54 L Respiratory Rate 18 Blood Pressure 113/50 L Pulse Oximetry 97 Intake & Output 09/19/18 09/20/18 09/20/18 18:59 06:59 18:59 Output Total 100 / 100 Balance -100 / -100 Output: Urine 100 / 100 Other: Date of Last Bowel Movement 09/18/18 09/19/18 <Ignacio,Joshua L - 09/20/18 12:16> Vital Signs 09/19/18 12:00 09/19/18 16:00 09/19/18 19:17 Temperature 97.3 F L 97.3 F L 98.6 F Pulse Rate 56 L 58 L 63 Respiratory Rate 18 18 18 Blood Pressure 134/60 144/67 H 135/60 Pulse Oximetry 97 98 97 09/19/18 23:22 09/19/18 23:55 09/20/18 03:12 Temperature 98.2 F 98.3 F Pulse Rate 61 65 60 Respiratory Rate 17 18 Blood Pressure 134/62 131/69 Pulse Oximetry 98 97 09/20/18 07:50 Temperature 98.5 F Pulse Rate 59 L Respiratory Rate 17 Blood Pressure 147/64 H Pulse Oximetry 97 Intake & Output 09/19/18 09/20/18 09/20/18 18:59 06:59 18:59 Output Total 100 / 100 Balance -100 / -100 Output: Urine 100 / 100 Other: Date of Last Bowel Movement 09/18/18 09/19/18 <Villa R3,Samuel S - 09/20/18 10:44> - Constitutional no acute distress, average body habitus, cooperative <Villa R3,Samuel S - 10:44> - Routine HEENT Exam Head: Present: normocephalic, atraumatic <Villa R3,Samuel S - 09/20/18 10:44> ENT: Present: mucous membranes moist <Villa R3,Samuel S - 09/20/18 10:44> - Routine Respiratory Exam Present: CTA bilaterally. Absent: accessory muscle use, wheezes, crackles < Villa R3,Samuel S - 09/20/18 10:44> - Routine Cardiovascular Exam Present: RRR, S1, S2. Absent: murmur <Villa R3,Samuel S - 09/20/18 10:44> - Routine Abdominal Exam Present: soft <Villa R3,Samuel S - 09/20/18 10:58> - Routine Extremities Exam Absent: cyanosis, edema <Villa R3,Samuel S - 18 10:58> - Routine Skin Exam Present: intact. Absent: dry <Villa R3,Samuel S - 09/20/18 10:58> - Routine Neurological Exam Present: alert, moving all extremities <VillaSamuel De León S - 09/20/18 10:58> - Detailed Neurological Exam: Coma Scale Eye Opening: Spontaneous <Samuel Welsh S - 09/20/18 10:58> Verbal Response: Oriented <Samuel Welsh S - 09/20/18 10:58> Motor Response: Obey commands <Samuel Welsh S - 09/20/18 10:58> Percy Coma Scale Total: 15 <Villa R3,Samuel S - 09/20/18 10:58> - Routine Psychiatric Exam Present: normal affect <Samuel Welsh S - 09/20/18 10:58> Assessment and Plan - Assessment (1) Zaiqq-vo-agwpptk kidney injury Code(s): N17.9 - Acute kidney failure, unspecified; N18.9 - Chronic kidney disease, unspecified Status: Acute (2) Cirrhosis of liver Code(s): K74.60 - Unspecified cirrhosis of liver Status: Chronic (3) Diabetes mellitus Code(s): E11.9 - Type 2 diabetes mellitus without complications Status: Acute (4) Hypercalcemia Code(s): E83.52 - Hypercalcemia Status: Resolved (5) Hypertension Code(s): I10 - Essential (primary) hypertension Status: Acute (6) Hyperkalemia Code(s): E87.5 - Hyperkalemia Status: Acute (7) Nutrition, metabolism, and development symptoms Code(s): R63.8 - Other symptoms and signs concerning food and fluid intake Status: Acute <Joshua Pierre - 09/20/18 12:16> (1) Xqdwd-fl-jdffrmo kidney injury Code(s): N17.9 - Acute kidney failure, unspecified; N18.9 - Chronic kidney disease, unspecified Status: Acute Plan: GFR stable around 10-13 (Cr 3.5-3.7), possibly this is a new baseline for her, however today Cr worsened to again to ~4.7 though GFR essentially unchanged. Reports prior baseline at GFR of 22. UA with hematuria and proteinuria Hypoalbuminemia Urine Na 113 Urine Osm 392 Complement levels normal MELE screen positive, titer mild at 1:40, speckled pattern Anti-dsDNA negative ANCA studies negative Anemia: Hgb stable around 9, asymptomatic Nephrology consulted, appreciate assistance Holding Bumex and Aldactone Strict I/O Address HTN as below Will benefit from outpatient addition of HEIDI-I or ARB Plan for renal biopsy today + cath placement HD Monday and Monday Electrolytes with hyperkalemia which is now stable, see below (2) Cirrhosis of liver Code(s): K74.60 - Unspecified cirrhosis of liver Status: Chronic Plan: Known history of liver cirrhosis, known history of hepatitis C Liver enzymes, bilirubin within normal limits CT chest did grape 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 have a towel rolling machine operator [facility] who can adjusts meds as needed -Monitor clinically, repeat LFTs as indicated (3) Diabetes mellitus Code(s): E11.9 - Type 2 diabetes mellitus without complications Status: Acute Plan: Known history of diabetes, takes insulin glargine 10 units at night BG at hospital target at the moment with SSI Continue Low-dose sliding scale Target BG 140-180 (4) Hypercalcemia Code(s): E83.52 - Hypercalcemia Status: Resolved Plan: Mild hypercalcemia on admission, now improved to around 9.4 Monitor daily (5) Hypertension Code(s): I10 - Essential (primary) hypertension Status: Acute Plan: BP now much closer to goal (target for her < 140/90 given CKD) EKG showed sinus bradycardia, heart rate 53, no ST changes -Telemetry shows a few episodes of VT, likely artifactual, no events since noon yesterday -Continuing home amlodipine (increased to 5 mg BID) -Decreased carvedilol to daily dosing given bradycardia -Hydralazine increased to 50 mg PO TID -Spironolactone as above -she has serious renal disease which is probably contributory, appreciate the help of Nephrology, see above (6) Hyperkalemia Code(s): E87.5 - Hyperkalemia Status: Acute Plan: Due to renal disease, mild (level 5.1 today), asymptomatic Continue telemetry until after dialysis Monday, then should be able to safely discontinue (7) Nutrition, metabolism, and development symptoms Code(s): R63.8 - Other symptoms and signs concerning food and fluid intake Status: Acute Plan: Encouraging p.o. intake <Samuel Welsh S - 09/20/18 10:47> - Assessment and Plan 4-year-old female with a history of liver cirrhosis, CKD, diabetes, hypertension presented to the emergency room with 1 day history of altered mental status. No focal deficits, CT head negative on admission. Found to have significant acute on chronic kidney injury. Also fluid overload with bilateral lower extremity edema and pleural effusions. Continuing diuretics on admission and consulting nephrology. Also found to be in hypertensive urgency on admission, improved with hydralazine. <Samuel Welsh S - 09/20/18 10:44> Discharge Planning: Pending renal biopsy, HD. Will need outpatient dialysis arranged, appreciate assistance of Nephrology team and CM. Also will need home health PT on discharge , referral placed, appreciate CM assistance with this as well. <Samuel Welsh S - 09/20/18 10:58> - Attending Attestation The exam, history, and the medical decision-making described in the above note were completed with the assistance of the resident physician. I reviewed and agree with the findings presented. I attest that I had a bxks-[id number] encounter with the patient on the same day, and personally performed and documented my assessment and findings in the medical record. I evaluated the patient alongside the resident this morning. Plan is for temporary dialysis and renal biopsy due to acutely worsening renal function. <Joshua Pierre - 09/20/18 12:16> <Samuel Welsh S - Last Filed: 09/20/18 10:47> (1) Stwac-op-pgsgdog kidney injury Qualifiers: Acute renal failure type: unspecified Chronic kidney disease stage: stage 4 ( severe) Qualified Code(s): N17.9 - Acute kidney failure, unspecified; N18.4 - Chronic kidney disease, stage 4 (severe) (2) Cirrhosis of liver Qualifiers: Hepatic cirrhosis type: other cirrhosis Qualified Code(s): K74.69 - Other cirrhosis of liver (3) Diabetes mellitus Qualifiers: Diabetes mellitus type: type 2 Diabetes mellitus retirement insulin use: with procurement director use Diabetes mellitus complication status: with kidney complications Diabetes mellitus complication detail: with chronic kidney disease (5) Hypertension Qualifiers: Hypertension type: essential hypertension Qualified Code(s): I10 - Essential (primary) hypertension <Joshua Pierre L - Last Filed: 09/20/18 12:16> (1) Fbkrl-tv-ffzlwao kidney injury Qualifiers: Acute renal failure type: unspecified Chronic kidney disease stage: stage 4 ( severe) Qualified Code(s): N17.9 - Acute kidney failure, unspecified; N18.4 - Chronic kidney disease, stage 4 (severe) (2) Cirrhosis of liver Qualifiers: Hepatic cirrhosis type: other cirrhosis Qualified Code(s): K74.69 - Other cirrhosis of liver (3) Diabetes mellitus Qualifiers: Diabetes mellitus type: type 2 Diabetes mellitus procurement director insulin use: with retirement use Diabetes mellitus complication status: with kidney complications Diabetes mellitus complication detail: with chronic kidney disease (5) Hypertension Qualifiers: Hypertension type: essential hypertension Qualified Code(s): I10 - Essential (primary) hypertension <Samuel Welsh S - Last Filed: 09/20/18 10:47> (1) Eyomg-lm-wahfqoy kidney injury Qualifiers: Acute renal failure type: unspecified Chronic kidney disease stage: stage 4 ( severe) Qualified Code(s): N17.9 - Acute kidney failure, unspecified; N18.4 - Chronic kidney disease, stage 4 (severe) (2) Cirrhosis of liver Qualifiers: Hepatic cirrhosis type: other cirrhosis Qualified Code(s): K74.69 - Other cirrhosis of liver (3) Diabetes mellitus Qualifiers: Diabetes mellitus type: type 2 Diabetes mellitus procurement director insulin use: with retirement use Diabetes mellitus complication status: with kidney complications Diabetes mellitus complication detail: with chronic kidney disease (5) Hypertension Qualifiers: Hypertension type: essential hypertension Qualified Code(s): I10 - Essential (primary) hypertension <Joshua Pierre - Last Filed: 09/20/18 12:16> (1) Vydnl-zz-dhdpupt kidney injury Qualifiers: Acute renal failure type: unspecified Chronic kidney disease stage: stage 4 ( severe) Qualified Code(s): N17.9 - Acute kidney failure, unspecified; N18.4 - Chronic kidney disease, stage 4 (severe) (2) Cirrhosis of liver Qualifiers: Hepatic cirrhosis type: other cirrhosis Qualified Code(s): K74.69 - Other cirrhosis of liver (3) Diabetes mellitus Qualifiers: Diabetes mellitus type: type 2 Diabetes mellitus procurement director insulin use: with retirement use Diabetes mellitus complication status: with kidney complications Diabetes mellitus complication detail: with chronic kidney disease (5) Hypertension Qualifiers: Hypertension type: essential hypertension Qualified Code(s): I10 - Essential (primary) hypertension
[2018-09-20] MEDS ORDERED: Heparin 10,000 UNITS/10 ML Vial (for IV use) ONE (11:01)
[2018-09-20] MEDS ORDERED: Lidocaine 1%/Epinephrine 1:100,000 Inj 20 ML Vial ONE (11:01)
--- NOTE | 2018-09-20 11:09 | CT ---
EXAM DATE: 09/20/2018 10:44 AM EST AGE/SEX: 58 years / Female INDICATIONS: Acute renal failure CLINICAL DATA: This is the patient's initial encounter. Patient reports that signs and symptoms have been present for 1 day and indicates a pain score of 0/10. MEDICAL/SURGICAL HISTORY: Diabetes. Hypertension. None. COMPARISON: No prior exams available for comparison. SEDATION TIME (min): 30 min BIOPSY SITE: Right renal MEDICATION(S): 2.5 mg midazolam (Versed) IV 125 fentanyl (Sublimaze) IV DEVICE(S): 18 gauge BioPince needle 17 gauge Introducer Two . . PROCEDURE: CT guided Right renal biopsy Prior to the procedure informed consent was obtained. Any appropriate prior imaging studies were rev iewed. Using automated exposure control and adjustment of the mA and/or kV according to patient size, radiat ion dose was kept as low as reasonably achievable to obtain optimal diagnostic quality images. DICOM format image data is available electronically for review and comparison. The site was prepped in a sterile fashion. Full sterile technique was used, including cap, mask, yunior rile gloves and gown and a large sterile sheet. Hand hygiene and 2% chlorhexidine and/or betadine/al cohol prep was utilized per protocol for cutaneous antisepsis. The skin and subcutaneous tissues wer e infiltrated with local anesthetic solution. With CT guidance the previously identified target was localized. Biopsy was performed using the presc ribed needle as above. Adequate hemostasis was obtained with compression at the puncture site. Follow-up CT scan reveals no hemorrhage. The patient tolerated the procedure well and there were no complications. The patient was returned to the Radiology Outpatient Unit in stable condition. FINDINGS: Uncomplicated right renal biopsy for function. 2 core specimens were obtained. Gelfoam was utilized t o aid in hemostasis. CONCLUSION: 1. Uncomplicated CT guided right renal biopsy for function. Electronically signed by: Dagoberto Watkins MD Board Certified Radiologist 09/20/2018 11:08 AM EST
--- NOTE | 2018-09-20 11:13 | P.PNNP ---
Subjective Interval history: Sitting up in stretcher in good spirts, going to have renal biopsy. Denies any shortness of breath, chest pain, nausea, or vomiting. <Amena Roman - Last Filed: 09/20/18 11:04> Physical Exam Vital signs: Vital Signs 09/19/18 12:00 09/19/18 16:00 09/19/18 19:17 Temperature 97.3 F L 97.3 F L 98.6 F Pulse Rate 56 L 58 L 63 Respiratory Rate 18 18 18 Blood Pressure 134/60 144/67 H 135/60 Pulse Oximetry 97 98 97 09/19/18 23:22 09/19/18 23:55 09/20/18 03:12 Temperature 98.2 F 98.3 F Pulse Rate 61 65 60 Respiratory Rate 17 18 Blood Pressure 134/62 131/69 Pulse Oximetry 98 97 09/20/18 07:50 Temperature 98.5 F Pulse Rate 59 L Respiratory Rate 17 Blood Pressure 147/64 H Pulse Oximetry 97 Intake & Output 09/19/18 09/20/18 09/20/18 18:59 06:59 18:59 Output Total 100 / 100 Balance -100 / -100 Output: Urine 100 / 100 Other: Date of Last Bowel Movement 09/18/18 09/19/18 Narrative: GENERAL: Alert and oriented. NAD SKIN: Warm and dry. NECK: Trachea midline. No JVD. CARDIOVASCULAR: Regular rate and rhythm. Murmur appreciated RESPIRATORY: No accessory muscle use. Clear to auscultation diminished in bases. Breath sounds equal bilaterally. GASTROINTESTINAL: Abdomen soft, nontender no significant distention. + BS. MUSCULOSKELETAL: Extremities without clubbing, cyanosis. <Amena Roman - Last Filed: 09/20/18 11:04> Vital signs: Vital Signs 09/19/18 23:22 09/19/18 23:55 09/20/18 03:12 Temperature 98.2 F 98.3 F Pulse Rate 61 65 60 Respiratory Rate 17 18 Blood Pressure 134/62 131/69 Pulse Oximetry 98 97 09/20/18 07:50 09/20/18 10:40 09/20/18 12:25 Temperature 98.5 F 97.6 F Pulse Rate 59 L 54 L 95 H Respiratory Rate 17 18 16 Blood Pressure 147/64 H 113/50 L 122/54 L Pulse Oximetry 97 97 93 L 12/20/18 12:40 09/20/18 15:55 09/20/18 20:32 Temperature 97.3 F L 97.4 F L Pulse Rate 59 L 51 L 55 L Respiratory Rate 20 16 20 Blood Pressure 117/51 L 117/58 L 135/64 Pulse Oximetry 95 98 98 Intake & Output 09/20/18 09/20/18 09/21/18 06:59 18:59 06:59 Intake Total 350 / 350 Output Total 100 / 100 Balance -100 / -100 350 / 350 Intake: Oral 350 / 350 Output: Urine 100 / 100 Other: Date of Last Bowel Movement 09/19/18 <Silas Forrest - Last Filed: 09/20/18 21:17> Assessment and Plan - Assessment (1) Hlycb-pd-gbajejq kidney injury Code(s): N17.9 - Acute kidney failure, unspecified; N18.9 - Chronic kidney disease, unspecified Status: Acute Qualifiers: Acute renal failure type: unspecified Chronic kidney disease stage: stage 4 (severe) Qualified Code(s): N17.9 - Acute kidney failure, unspecified; N18.4 - Chronic kidney disease, stage 4 (severe) Plan: Acute kidney injury with a creatinine at 3.74 and potassium level of 3.5 on day of consult Patient is followed by Registered Nurse Cardiovascular [facility] through the [place] and was told that her last GFR was at 22. So has stage 4 chronic kidney disease. AMA possibly prerenal VS ATN Renal ultrasound with medical renal disease, no masses or hydronephrosis. Complements normal. MELE is positive. AntiDNA low. Patient has gradual worsening in the Creatinine from 1.8-2.5 in last 1 year. Has proteinuria and rapid worsening in the renal function. 24 hour urine with 1.8 gram of protein. Renal biopsy and permacath placement today. Will proceed with HD tomorrow. executive office manager consulted to arrange outpatient HD. Labs in [place] (2) Diabetes mellitus Code(s): E11.9 - Type 2 diabetes mellitus without complications Status: Acute Qualifiers: Diabetes mellitus type: type 2 Diabetes mellitus fci insulin use: with moth exterminator use Diabetes mellitus complication status: with kidney complications Diabetes mellitus complication detail: with chronic kidney disease Plan: Maintain blood sugars between 140 mg/dl to 180 mg/dl while hospitalized. Has SS available. Well controlled. (3) Hypertension Code(s): I10 - Essential (primary) hypertension Status: Acute Qualifiers: Hypertension type: essential hypertension Qualified Code(s): I10 - Essential (primary) hypertension Plan: Better controlled. On amlodipine, hydralazine, and coreg. <Amena Roman - Last Filed: 09/20/18 11:04> - Assessment (1) Wkccq-vu-zccyfnc kidney injury Code(s): N17.9 - Acute kidney failure, unspecified; N18.9 - Chronic kidney disease, unspecified Status: Acute Qualifiers: Acute renal failure type: unspecified Chronic kidney disease stage: stage 4 (severe) Qualified Code(s): N17.9 - Acute kidney failure, unspecified; N18.4 - Chronic kidney disease, stage 4 (severe) Plan: Patient seen and examined, agree with above. Patient has Kidney Biopsy, mainly done to see the cause for rapid worsening renal function. Also to find out chronicity of renal disease. Starting HD in AM, has PermCath. (2) Diabetes mellitus Code(s): E11.9 - Type 2 diabetes mellitus without complications Status: Acute Qualifiers: Diabetes mellitus type: type 2 Diabetes mellitus moth exterminator insulin use: with moth exterminator use Diabetes mellitus complication status: with kidney complications Diabetes mellitus complication detail: with chronic kidney disease (3) Hypertension Code(s): I10 - Essential (primary) hypertension Status: Acute Qualifiers: Hypertension type: essential hypertension Qualified Code(s): I10 - Essential (primary) hypertension <Silas Forrest - Last Filed: 09/20/18 21:17>
[2018-09-20] MEDS ORDERED: ceFAZolin 1 GM Premix Inj 1 GM/50 ML PIGGYBACK IV.SIG ONE (11:24)
[2018-09-20 11:55] LABS: Baso # (Auto) 0.1 th/mm3 (0.0-0.2); Baso % (Auto) 1.9 % (0.0-2.0); Eos # (Auto) 0.3 th/mm3 (0.0-0.4); Eos % (Auto) 5.4 % (0.0-4.0); Hematocrit 24.9 % (35.0-46.0); Hemoglobin 8.8 gm/dL (11.6-15.3); Lymph # (Auto) 1.4 th/mm3 (1.0-4.8); Lymph % (Auto) 21.6 % (9.0-44.0); Mean Corpuscular HGB Conc 35.4 % (32.0-36.0); Mean Corpuscular Hemoglobin 33.9 pg (27.0-34.0); Mean Corpuscular Volume 95.6 fL (80.0-100.0); Mean Platelet Volume 8.4 fL (7.0-11.0); Mono # (Auto) 0.7 th/mm3 (0.0-0.9); Mono % (Auto) 11.3 % (0.0-8.0); Neut # (Auto) 3.8 th/mm3 (1.8-7.7); Neut % (Auto) 59.8 % (16.0-70.0); Platelet Count 169 th/mm3 (150-450); Red Blood Count 2.61 mil/mm3 (4.00-5.30); Red Cell Distribution Width 15.8 % (11.6-17.2); White Blood Count 6.4 th/mm3 (4.0-11.0)
[2018-09-20] MEDS ORDERED: Vancomycin Inj 1,000 MG in Sodium Chlor 0.9% Inj 250 ML IV.SIG SCH (12:00)
[2018-09-20] MEDS ORDERED: ceFAZolin 2 GM Premix Inj 2 GM/50 ML PIGGYBACK IV.SIG SCH (12:00)
[2018-09-20] MEDS ORDERED: Heparin Central Flush 100 UNIT/ML 5 ML Vial IV.FLUSH PRN (12:16)
--- NOTE | 2018-09-20 12:19 | P.RAD ---
Post Procedure Progress Note - Pre Procedure Diagnosis (1) Dpmxv-mj-snwcqpp kidney injury - Post Procedure Diagnosis (1) Jjnzs-si-uabhjzn kidney injury - Procedure Information Procedure Date: 09/20/18 Supervising Radiologist: Dagoberto Watkins Jr, MD Proceduralist/Assist: Demarcus Newton Estimated blood loss (mL): 0 Anesthesia: Conscious Sedation - Plan of Activity Patient to Unit: ROPU Patient Condition: Good See PACS Report for procedural detail/treatment. [facility] Radiology Procedures right Internal Jugular Hemodialysis Catheter Tunneled Device: dual lumen [place]: 15 - Additional Detail Findings: RIJ permacath in good position and functions well. OK to use. Plan: To ROPU
[2018-09-20 13:09] LABS: Baso # (Auto) 0.1 th/mm3 (0.0-0.2); Baso % (Auto) 2.3 % (0.0-2.0); Eos # (Auto) 0.3 th/mm3 (0.0-0.4); Eos % (Auto) 5.2 % (0.0-4.0); Hematocrit 25.9 % (35.0-46.0); Hemoglobin 8.7 gm/dL (11.6-15.3); Lymph # (Auto) 1.5 th/mm3 (1.0-4.8); Lymph % (Auto) 24.8 % (9.0-44.0); Mean Corpuscular HGB Conc 33.6 % (32.0-36.0); Mean Platelet Volume 8.6 fL (7.0-11.0); Mono # (Auto) 0.7 th/mm3 (0.0-0.9); Mono % (Auto) 11.9 % (0.0-8.0); Neut # (Auto) 3.4 th/mm3 (1.8-7.7); Neut % (Auto) 55.8 % (16.0-70.0); Platelet Count 163 th/mm3 (150-450); Red Blood Count 2.65 mil/mm3 (4.00-5.30); Red Cell Distribution Width 16.5 % (11.6-17.2)
--- NOTE | 2018-09-20 16:11 | IR ---
EXAM DATE: 09/20/2018 12:41 PM EST AGE/SEX: 58 years / Female INDICATIONS: Patient presents with renal failure in need of dialysis catheter placement. CLINICAL DATA: This is the patient's initial encounter. Patient reports that signs and symptoms have been present for 4 - 6 days and indicates a pain score of 0/10. MEDICAL/SURGICAL HISTORY: . Anxiety, Cirrhosis, Depression, Diabetes, heart murmur, Hepatitis C , hypertension, Renal insufficiency . Renal biopsy. COMPARISON: No prior exams available for comparison. FLUORO TIME (min): 0.6 IMAGE SERIES: 3 RADIATION DOSE: 8.0 mGy ACCESS SITE: Right internal jugular vein SEDATION TIME (min): 45 MEDICATION(S): 1.5 mg midazolam (Versed) IV 75 mcg fentanyl (Sublimaze) IV Vancomycin within 2 hrs of procedure, Ancef (or alternative) within 1 hr of procedure. DEVICE(S): 15 Ecu[place]orean double lumen 23 cm Palindrome Permacath . . PROCEDURE : 1. Ultrasound guided venipuncture. 2. Fluoroscopic guidance. 3. Central line placement. The risks, benefits and alternatives to the procedure were explained and verbal and written consent w as obtained. The site was prepped in sterile fashion. Full sterile technique was used, including ca p, mask, sterile gloves and gown and a large sterile sheet. Hand hygiene and 2% chlorhexidine prep w as utilized per protocol for cutaneous antisepsis with appropriate dry time for site. Sterile gel an d sterile probe cover were utilized for ultrasound guidance. The skin and subcutaneous tissues were infiltrated with local anesthetic solution. A suitable site a ramon the vein was selected with ultrasound and fluoroscopic guidance. A small incision was made. Th e vein was accessed under direct ultrasound visualization using the micropuncture technique. The michael ropuncture set was exchanged for a 0.035 wire. The tract was dilated. The catheter was advanced int o position under direct fluoroscopic visualization, and was advanced with the tip at the junction of the superior vena cava and rt atrium. The catheter was fixed in place with suture and a sterile dres sing was applied. The patient tolerated the procedure well and there were no complications. CONCLUSION: 1. Uncomplicated line placement as above. Electronically signed by: Dagoberto Watkins MD Board Certified Radiologist 09/20/2018 4:10 PM EST
[2018-09-21 06:12] LABS: Carbon Dioxide 22.6 meq/L (21.0-32.0); Phosphorus 3.5 mg/dL (2.5-4.9)
[2018-09-21] MEDS: Insulin NovoLOG Aspart Correctional Sugar Inj SQ SCH ×4 (08:00→20:19)
[2018-09-21] MEDS: Senna/Docusate Sodium 8.6/50 MG Tablet PO SCH ×2 (08:06→20:18)
[2018-09-21] MEDS: amLODIPine 5 MG Tablet PO SCH ×2 (08:31→20:18)
[2018-09-21] MEDS: hydrALAZINE 50 MG Tablet PO SCH ×3 (08:31→17:49)
[2018-09-21] MEDS: Carvedilol 6.25 MG Tablet PO SCH (08:31)
--- NOTE | 2018-09-21 11:13 | P.PNFP ---
Subjective Interval history: 58-year-old female with a history of liver cirrhosis, CKD, diabetes, hypertension admitted with 1 day history of altered mental status and also found to have acute on chronic renal injury and hypertensive urgency. Now being seen for follow up. Today she feels well, feels her confusion has resolved. No chest pains or shortness of breath. Has been walking with PT and nursing without difficulty. Tolerated cath placement and renal biopsy well yesterday. Getting ready for dialysis today. Family at bedside. <Samuel Welsh S - 09/21/18 11:12> Results - Labs Result diagrams: 09/20/18 12:45 09/21/18 05:08 <Joshua Pierre L - 09/21/18 22:04> Abnormal lab results 09/21/18 09/21/18 09/21/18 Range/Units 05:08 12:20 14:12 Chloride 113 H (98-107) meq/L BUN 45 H (7-18) mg/dL Creatinine 4.63 H (0.50-1.00) mg/dL Estimated GFR 10 L (>89) mL/min POC Glucose 111 H (68-110) mg/dl Random Glucose 73 L (74-106) mg/dL Hep C IgG Ab Reactive H (Nonreactive) 09/21/18 Range/Units 19:37 Chloride (98-107) meq/L BUN (7-18) mg/dL Creatinine (0.50-1.00) mg/dL Estimated GFR (>89) mL/min POC Glucose 129 H (68-110) mg/dl Random Glucose (74-106) mg/dL Hep C IgG Ab (Nonreactive) [facility] 09/21/18 05:08 Sodium 141 Potassium 5.0 Chloride 113 H Carbon Dioxide 22.6 BUN 45 H Creatinine 4.63 H Calcium 9.0 <Joshua Pierre L - 09/21/18 22:04> Abnormal lab results 09/20/18 09/20/18 09/20/18 Range/Units 10:50 12:45 17:07 RBC 2.61 L 2.65 L (4.00-5.30) mil/mm3 Hgb 8.8 L 8.7 L (11.6-15.3) gm/dL Hct 24.9 L 25.9 L (35.0-46.0) % [place] % (Auto) 11.3 H 11.9 H (0.0-8.0) % Eos % (Auto) 5.4 H 5.2 H (0.0-4.0) % Baso % (Auto) 2.3 H (0.0-2.0) % Chloride (98-107) meq/L BUN (7-18) mg/dL Creatinine (0.50-1.00) mg/dL Estimated GFR (>89) mL/min POC Glucose 144 H (68-110) mg/dl Random Glucose (74-106) mg/dL 09/20/18 09/21/18 Range/Units 19:30 05:08 RBC (4.00-5.30) mil/mm3 Hgb (11.6-15.3) gm/dL Hct (35.0-46.0) % [place] % (Auto) (0.0-8.0) % Eos % (Auto) (0.0-4.0) % Baso % (Auto) (0.0-2.0) % Chloride 113 H (98-107) meq/L BUN 45 H (7-18) mg/dL Creatinine 4.63 H (0.50-1.00) mg/dL Estimated GFR 10 L (>89) mL/min POC Glucose 167 H (68-110) mg/dl Random Glucose 73 L (74-106) mg/dL Short CBC 09/20/18 09/20/18 Range/Units 10:50 12:45 WBC 6.4 6.0 (4.0-11.0) th/mm3 Hgb 8.8 L 8.7 L (11.6-15.3) gm/dL Hct 24.9 L 25.9 L (35.0-46.0) % Plt Count 169 163 (150-450) th/mm3 [facility] 09/21/18 05:08 Sodium 141 Potassium 5.0 Chloride 113 H Carbon Dioxide 22.6 BUN 45 H Creatinine 4.63 H Calcium 9.0 <Samuel Welsh - 09/21/18 11:12> - Imaging Impressions Catheter Placement 09/20/18 00:00 CONCLUSION: 1. Uncomplicated line placement as above. Renal Biopsy CT 09/20/18 09:13 CONCLUSION: 1. Uncomplicated CT guided right renal biopsy for function. <Samuel Welsh - 09/21/18 11:12> Physical Exam Vital signs: Vital Signs 09/21/18 00:00 09/21/18 03:07 09/21/18 03:55 Temperature 97.6 F Pulse Rate 62 57 L Respiratory Rate 18 17 Blood Pressure 142/66 H Pulse Oximetry 98 09/21/18 04:00 09/21/18 07:48 09/21/18 11:23 Temperature 98.2 F 98.2 F 97.6 F Pulse Rate 60 58 L 60 Respiratory Rate 18 16 18 Blood Pressure 157/66 H 109/54 L 161/72 H Pulse Oximetry 98 96 99 09/21/18 20:06 09/21/18 21:38 Temperature Pulse Rate 69 Respiratory Rate Blood Pressure Pulse Oximetry 99 Intake & Output 09/21/18 09/21/18 09/22/18 06:59 18:59 06:59 Intake Total 480 / 480 Output Total 500 / 500 Balance 480 / 480 -500 / -500 Intake: Oral 480 / 480 Output: Hemodialysis Amount 500 / 500 Other: # Voids 2 Date of Last Bowel Movement 09/19/18 09/20/18 <YoungJoshua L - 09/21/18 22:04> Vital Signs 09/20/18 12:25 09/20/18 12:40 09/20/18 15:55 Temperature 97.3 F L Pulse Rate 95 H 59 L 51 L Respiratory Rate 16 20 16 Blood Pressure 122/54 L 117/51 L 117/58 L Pulse Oximetry 93 L 95 98 09/20/18 19:43 09/20/18 20:32 09/21/18 00:00 Temperature 97.4 F L 97.6 F Pulse Rate 54 L 55 L 62 Respiratory Rate 20 18 Blood Pressure 135/64 142/66 H Pulse Oximetry 98 98 09/21/18 03:07 09/21/18 03:55 09/21/18 04:00 Temperature 98.2 F Pulse Rate 57 L 60 Respiratory Rate 17 18 Blood Pressure 157/66 H Pulse Oximetry 98 09/21/18 07:48 Temperature 98.2 F Pulse Rate 58 L Respiratory Rate 16 Blood Pressure 109/54 L Pulse Oximetry 96 Intake & Output 09/20/18 09/21/18 09/21/18 18:59 06:59 18:59 Intake Total 600 / 600 480 / 480 Balance 600 / 600 480 / 480 Intake: IV 250 / 250 Vancomycin Inj 1,000 MG In NS 250 / 250 Inj 250 ML @ 200 mls/hr IV.SIG [facility] Rx#:[id number] Oral 350 / 350 480 / 480 Other: # Voids 2 Date of Last Bowel Movement 09/19/18 09/19/18 09/20/18 <Villa R3,Samuel S - 09/21/18 11:12> - Constitutional no acute distress, average body habitus <Villa R3,Samuel S - 09/21/18 11:12> - Routine HEENT Exam Head: Present: normocephalic, atraumatic <Villa R3,Samuel S - 09/21/18 11:12> ENT: Present: mucous membranes moist <Villa R3,Samuel S - 09/21/18 11:12> - Routine Respiratory Exam Present: CTA bilaterally. Absent: accessory muscle use, wheezes, crackles < Villa R3,Samuel S - 09/21/18 11:12> - Routine Cardiovascular Exam Present: RRR, S1, S2. Absent: murmur <Villa R3,Samuel S - 09/21/18 11:12> - Routine Abdominal Exam Present: soft <Villa R3,Samuel S - 09/21/18 11:12> - Routine Skin Exam Present: intact <Villa R3,Samuel S - 09/21/18 11:12> - Routine Neurological Exam Present: alert, moving all extremities <Villa R3,Samuel S - 09/21/18 11:12> Assessment and Plan - Assessment (1) Adini-ge-yjowznl kidney injury Code(s): N17.9 - Acute kidney failure, unspecified; N18.9 - Chronic kidney disease, unspecified Status: Acute (2) Cirrhosis of liver Code(s): K74.60 - Unspecified cirrhosis of liver Status: Chronic (3) Diabetes mellitus Code(s): E11.9 - Type 2 diabetes mellitus without complications Status: Acute (4) Hypertension Code(s): I10 - Essential (primary) hypertension Status: Acute (5) Hyperkalemia Code(s): E87.5 - Hyperkalemia Status: Resolved (6) Nutrition, metabolism, and development symptoms Code(s): R63.8 - Other symptoms and signs concerning food and fluid intake Status: Acute <Young,Joshua L - 09/21/18 22:04> (1) Pecdr-th-ftdrwbc kidney injury Code(s): N17.9 - Acute kidney failure, unspecified; N18.9 - Chronic kidney disease, unspecified Status: Acute Plan: GFR stable around 10-13 (Cr 3.5-3.7), possibly this is a new baseline for her, however today Cr worsened to again to ~4.7 though GFR essentially unchanged. Reports prior baseline at GFR of 22. UA with hematuria and proteinuria Hypoalbuminemia Urine Na 113 Urine Osm 392 Complement levels normal MELE screen positive, titer mild at 1:40, speckled pattern Anti-dsDNA negative ANCA studies negative Anemia: Hgb stable around 9, asymptomatic Nephrology consulted, appreciate assistance Holding Bumex and Aldactone Strict I/O Address HTN as below Will benefit from outpatient addition of HEIDI-I or ARB S/p renal biopsy, result pending HD today and tomorrow Electrolytes with hyperkalemia which is now stable, see below (2) Cirrhosis of liver Code(s): K74.60 - Unspecified cirrhosis of liver Status: Chronic Plan: Known history of liver cirrhosis, known history of hepatitis C Liver enzymes, bilirubin within normal limits 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 [facility] who can adjust[facility]s as needed -Monitor clinically, repeat LFTs as indicated (3) Diabetes mellitus Code(s): E11.9 - Type 2 diabetes mellitus without complications Status: Acute Plan: Known history of diabetes, takes insulin glargine 10 units at night BG at hospital target at the moment with SSI Continue Low-dose sliding scale Target BG 140-180 (4) Hypertension Code(s): I10 - Essential (primary) hypertension Status: Acute Plan: BP now much closer to goal (target for her < 140/90 given CKD) EKG showed sinus bradycardia, heart rate 53, no ST changes -Continuing home amlodipine (increased to 5 mg BID) -Change Coreg to 3.125 PO BID instead of 6.25 daily -Continue Hydralazine 50 mg PO TID -she has serious renal disease which is probably contributory, appreciate the help of Nephrology, see above (5) Hyperkalemia Code(s): E87.5 - Hyperkalemia Status: Resolved Plan: Due to renal disease, mild (level 5.1 today), asymptomatic Continue telemetry until after dialysis Monday, then should be able to safely discontinue (6) Nutrition, metabolism, and development symptoms Code(s): R63.8 - Other symptoms and signs concerning food and fluid intake Status: Acute Plan: Encouraging p.o. intake <Samuel Welsh S - 09/21/18 11:06> - Assessment and Plan Discharge Planning: Pending HD. Will need outpatient dialysis arranged, appreciate assistance of Nephrology team and CM. Also will need home health PT on discharge, referral placed, appreciate CM assistance with this as well. Hopefully dialysis will go well and she will be able to be discharged on Monday pending nephrology clearance. <Allen Samuel Pacheco S - 09/21/18 11:12> - Attending Attestation Attending note: I agree with assessment and plan as documented. Patient has hypoalbuminemia, acute on chronic renal insufficiency, proteinuria but not in the nephrotic range, and hypoalbuminemia <2.5. She is status post renal biopsy showing diabetic nephropathy, glomerulosclerosis, and interstitial fibrosis. She is status post RIJ permacath and hemodialysis. Lab studies showing positive MELE but with low titer and negative anti double stranded DNA. She will need hemodialysis arranged as an outpatient and good follow up with PCP and nephrology. She will need good control of her diabetes and hypertension as an outpatient. Of note, she is also hepatitis C positive, but has been previously treated with Harvoni. Will check viral load. Appreciate nephrology's recommendations and co-management. <Joshua Pierre - 09/21/18 22:04> <Allen PachecoSamuel S - Last Filed: 09/21/18 11:06> (1) Usagw-ma-lbnxycp kidney injury Qualifiers: Acute renal failure type: unspecified Chronic kidney disease stage: stage 4 ( severe) Qualified Code(s): N17.9 - Acute kidney failure, unspecified; N18.4 - Chronic kidney disease, stage 4 (severe) (2) Cirrhosis of liver Qualifiers: Hepatic cirrhosis type: other cirrhosis Qualified Code(s): K74.69 - Other cirrhosis of liver (3) Diabetes mellitus Qualifiers: Diabetes mellitus type: type 2 Diabetes mellitus computer terminal operator insulin use: with senior care use Diabetes mellitus complication status: with kidney complications Diabetes mellitus complication detail: with chronic kidney disease (4) Hypertension Qualifiers: Hypertension type: essential hypertension Qualified Code(s): I10 - Essential (primary) hypertension <Joshua Pierre - Last Filed: 09/21/18 22:04> (1) Hihva-kv-eohmzqg kidney injury Qualifiers: Acute renal failure type: unspecified Chronic kidney disease stage: stage 4 ( severe) Qualified Code(s): N17.9 - Acute kidney failure, unspecified; N18.4 - Chronic kidney disease, stage 4 (severe) (2) Cirrhosis of liver Qualifiers: Hepatic cirrhosis type: other cirrhosis Qualified Code(s): K74.69 - Other cirrhosis of liver (3) Diabetes mellitus Qualifiers: Diabetes mellitus type: type 2 Diabetes mellitus senior care insulin use: with senior care use Diabetes mellitus complication status: with kidney complications Diabetes mellitus complication detail: with chronic kidney disease (4) Hypertension Qualifiers: Hypertension type: essential hypertension Qualified Code(s): I10 - Essential (primary) hypertension <Samuel Welsh S - Last Filed: 09/21/18 11:06> (1) Hhpzz-gk-gjfcxgq kidney injury Qualifiers: Acute renal failure type: unspecified Chronic kidney disease stage: stage 4 ( severe) Qualified Code(s): N17.9 - Acute kidney failure, unspecified; N18.4 - Chronic kidney disease, stage 4 (severe) (2) Cirrhosis of liver Qualifiers: Hepatic cirrhosis type: other cirrhosis Qualified Code(s): K74.69 - Other cirrhosis of liver (3) Diabetes mellitus Qualifiers: Diabetes mellitus type: type 2 Diabetes mellitus senior care insulin use: with senior care use Diabetes mellitus complication status: with kidney complications Diabetes mellitus complication detail: with chronic kidney disease (4) Hypertension Qualifiers: Hypertension type: essential hypertension Qualified Code(s): I10 - Essential (primary) hypertension <Joshua Pierre - Last Filed: 09/21/18 22:04> (1) Hmead-zw-usqfpqu kidney injury Qualifiers: Acute renal failure type: unspecified Chronic kidney disease stage: stage 4 ( severe) Qualified Code(s): N17.9 - Acute kidney failure, unspecified; N18.4 - Chronic kidney disease, stage 4 (severe) (2) Cirrhosis of liver Qualifiers: Hepatic cirrhosis type: other cirrhosis Qualified Code(s): K74.69 - Other cirrhosis of liver (3) Diabetes mellitus Qualifiers: Diabetes mellitus type: type 2 Diabetes mellitus senior care insulin use: with senior care use Diabetes mellitus complication status: with kidney complications Diabetes mellitus complication detail: with chronic kidney disease (4) Hypertension Qualifiers: Hypertension type: essential hypertension Qualified Code(s): I10 - Essential (primary) hypertension
[2018-09-21] MEDS ORDERED: Albumin Human 25% Inj 100 ML IV.SIG PRN (12:45)
[2018-09-21] MEDS ORDERED: Sod Chloride 0.9% Inj 1,000 ML OTHER PRN ×2 (12:45)
[2018-09-21] MEDS ORDERED: Acetaminophen 325 MG Tablet PO PRN (12:45)
[2018-09-21] MEDS ORDERED: Heparin 10,000 UNITS/10 ML Vial (for IV use) OTHER PRN (12:45)
[2018-09-21] MEDS ORDERED: Gelatin 12 MM/7 MM Topical Foam TOPICAL PRN (12:45)
[2018-09-21] MEDS ORDERED: Sod Chloride 0.9% Inj 1,000 ML IV.CONT PRN (12:45)
--- NOTE | 2018-09-21 12:48 | P.PNNP ---
Subjective Interval history: Sitting up in bed with family at bedside. Denies any shortness of breath, chest pain, nausea, or vomiting. Some pain at permacath site. <Amena Roman - Last Filed: 09/21/18 12:39> Physical Exam Vital signs: Vital Signs 09/20/18 12:40 09/20/18 15:55 09/20/18 19:43 Temperature 97.3 F L Pulse Rate 59 L 51 L 54 L Respiratory Rate 20 16 Blood Pressure 117/51 L 117/58 L Pulse Oximetry 95 98 09/20/18 20:32 09/21/18 00:00 09/21/18 03:07 Temperature 97.4 F L 97.6 F Pulse Rate 55 L 62 Respiratory Rate 20 18 17 Blood Pressure 135/64 142/66 H Pulse Oximetry 98 98 09/21/18 03:55 09/21/18 04:00 09/21/18 07:48 Temperature 98.2 F 98.2 F Pulse Rate 57 L 60 58 L Respiratory Rate 18 16 Blood Pressure 157/66 H 109/54 L Pulse Oximetry 98 96 09/21/18 11:23 Temperature 97.6 F Pulse Rate 60 Respiratory Rate 18 Blood Pressure 161/72 H Pulse Oximetry 99 Intake & Output 09/20/18 09/21/18 09/21/18 18:59 06:59 18:59 Intake Total 600 / 600 480 / 480 Balance 600 / 600 480 / 480 Intake: IV 250 / 250 Vancomycin Inj 1,000 MG In NS 250 / 250 Inj 250 ML @ 200 mls/hr IV.SIG [facility] Rx#:[id number] Oral 350 / 350 480 / 480 Other: # Voids 2 Date of Last Bowel Movement 09/19/18 09/19/18 09/20/18 Narrative: GENERAL: Alert and oriented. NAD SKIN: Warm and dry. NECK: Trachea midline. No JVD. CARDIOVASCULAR: Regular rate and rhythm. Murmur appreciated. Permacath right IJ RESPIRATORY: No accessory muscle use. Clear to auscultation diminished in bases. Breath sounds equal bilaterally. GASTROINTESTINAL: Abdomen soft, nontender no significant distention. + BS. MUSCULOSKELETAL: Extremities without clubbing, cyanosis. <Amena Roman - Last Filed: 09/21/18 12:39> Vital signs: Vital Signs 09/21/18 00:00 09/21/18 03:07 09/21/18 03:55 Temperature 97.6 F Pulse Rate 62 57 L Respiratory Rate 18 17 Blood Pressure 142/66 H Pulse Oximetry 98 09/21/18 04:00 09/21/18 07:48 09/21/18 11:23 Temperature 98.2 F 98.2 F 97.6 F Pulse Rate 60 58 L 60 Respiratory Rate 18 16 18 Blood Pressure 157/66 H 109/54 L 161/72 H Pulse Oximetry 98 96 99 09/21/18 20:06 Temperature Pulse Rate 69 Respiratory Rate Blood Pressure Pulse Oximetry Intake & Output 09/21/18 09/21/18 09/22/18 06:59 18:59 06:59 Intake Total 480 / 480 Output Total 500 / 500 Balance 480 / 480 -500 / -500 Intake: Oral 480 / 480 Output: Hemodialysis Amount 500 / 500 Other: # Voids 2 Date of Last Bowel Movement 09/19/18 09/20/18 <Silas Forrest - Last Filed: 09/21/18 21:17> Assessment and Plan - Assessment (1) Atlbe-se-ugoycbx kidney injury Code(s): N17.9 - Acute kidney failure, unspecified; N18.9 - Chronic kidney disease, unspecified Status: Acute Qualifiers: Acute renal failure type: unspecified Chronic kidney disease stage: stage 4 (severe) Qualified Code(s): N17.9 - Acute kidney failure, unspecified; N18.4 - Chronic kidney disease, stage 4 (severe) Plan: Acute kidney injury with a creatinine at 3.74 and potassium level of 3.5 on day of consult 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 So has stage 4 chronic kidney disease. AMA on CKD possibly has progressed to ESRD Renal ultrasound with medical renal disease, no masses or hydronephrosis. Complements normal. MELE is positive. AntiDNA low. Perma cath placement 09/20 Has proteinuria and rapid worsening in the renal function. 24 hour urine with 1.8 gram of protein. Renal biopsy results are pending. Patient has Kidney Biopsy, mainly done to see the cause for rapid worsening renal function. Also to find out chronicity of renal disease. First HD today. (2) Diabetes mellitus Code(s): E11.9 - Type 2 diabetes mellitus without complications Status: Acute Qualifiers: Diabetes mellitus type: type 2 Diabetes mellitus medical terminologist insulin use: with medical terminologist use Diabetes mellitus complication status: with kidney complications Diabetes mellitus complication detail: with chronic kidney disease Plan: Maintain blood sugars between 140 mg/dl to 180 mg/dl while hospitalized. Has SS available. Well controlled. (3) Hypertension Code(s): I10 - Essential (primary) hypertension Status: Acute Qualifiers: Hypertension type: essential hypertension Qualified Code(s): I10 - Essential (primary) hypertension Plan: Better controlled. On amlodipine, hydralazine, and coreg. <Amena Roman - Last Filed: 09/21/18 12:39> - Assessment (1) Rgtuq-sy-ntnqrjw kidney injury Code(s): N17.9 - Acute kidney failure, unspecified; N18.9 - Chronic kidney disease, unspecified Status: Acute Qualifiers: Acute renal failure type: unspecified Chronic kidney disease stage: stage 4 (severe) Qualified Code(s): N17.9 - Acute kidney failure, unspecified; N18.4 - Chronic kidney disease, stage 4 (severe) Plan: Patient seen and examined, agree with above. The Kidney Biopsy showing Diabetic Nephropathy with Glomerulosclerosis. Has 90% interstitial sclerosis. (2) Diabetes mellitus Code(s): E11.9 - Type 2 diabetes mellitus without complications Status: Acute Qualifiers: Diabetes mellitus type: type 2 Diabetes mellitus medical terminologist insulin use: with prison use Diabetes mellitus complication status: with kidney complications Diabetes mellitus complication detail: with chronic kidney disease (3) Hypertension Code(s): I10 - Essential (primary) hypertension Status: Acute Qualifiers: Hypertension type: essential hypertension Qualified Code(s): I10 - Essential (primary) hypertension <Silas Forrest - Last Filed: 09/21/18 21:17>
[2018-09-21] MEDS: Heparin 10,000 UNITS/10 ML Vial (for IV use) OTHER PRN (16:50)
[2018-09-21 18:45] LABS: Hepatitits B Surface Antigen Nonreactive (Nonreactive)
[2018-09-21 19:16] LABS: Hepatitis A IgM Antibody Nonreactive (Nonreactive)
[2018-09-22 07:19] LABS: Hematocrit 23.5 % (35.0-46.0); Hemoglobin 8.4 gm/dL (11.6-15.3); Mean Corpuscular HGB Conc 35.9 % (32.0-36.0); Mean Corpuscular Hemoglobin 33.9 pg (27.0-34.0); Mean Corpuscular Volume 94.5 fL (80.0-100.0); Mean Platelet Volume 8.5 fL (7.0-11.0); Platelet Count 156 th/mm3 (150-450); Red Blood Count 2.48 mil/mm3 (4.00-5.30); Red Cell Distribution Width 15.8 % (11.6-17.2); White Blood Count 5.8 th/mm3 (4.0-11.0)
[2018-09-22 07:35] LABS: Calcium 8.1 mg/dL (8.5-10.1); Carbon Dioxide 25.8 meq/L (21.0-32.0); Potassium 3.9 meq/L (3.5-5.1)
--- NOTE | 2018-09-22 08:46 | P.PNFP ---
Subjective Interval history: 58-year-old female with a history of liver cirrhosis, CKD, diabetes, hypertension admitted with 1 day history of altered mental status and also found to have acute on chronic renal injury and hypertensive urgency. Now being seen for follow up. Today she feels well, feels her confusion has resolved. No chest pains or shortness of breath. Had 1 episode of diarrhea yesterday. No fever or abdominal pain. <Allen PachecoSamuel S - 09/22/18 08:46> Results - Labs Result diagrams: 09/23/18 09:02 09/26/18 10:05 <Joshua Pierre L - 09/26/18 12:27> Abnormal lab results 09/25/18 Range/Units 16:53 POC Glucose 151 H (68-110) mg/dl BMP 09/26/18 10:05 Potassium 3.6 D <Joshua Pierre L - 09/26/18 12:27> Abnormal lab results 09/21/18 09/21/18 09/21/18 Range/Units 12:20 14:12 19:37 RBC (4.00-5.30) mil/mm3 Hgb (11.6-15.3) gm/dL Hct (35.0-46.0) % Chloride (98-107) meq/L BUN (7-18) mg/dL Creatinine (0.50-1.00) mg/dL Estimated GFR (>89) mL/min POC Glucose 111 H 129 H (68-110) mg/dl Calcium (8.5-10.1) mg/dL Hep C IgG Ab Reactive H (Nonreactive) 09/22/18 09/22/18 Range/Units 05:51 05:51 RBC 2.48 L (4.00-5.30) mil/mm3 Hgb 8.4 L (11.6-15.3) gm/dL Hct 23.5 L (35.0-46.0) % Chloride 109 H (98-107) meq/L BUN 29 H (7-18) mg/dL Creatinine 3.34 H (0.50-1.00) mg/dL Estimated GFR 14 L (>89) mL/min POC Glucose (68-110) mg/dl Calcium 8.1 L D (8.5-10.1) mg/dL Hep C IgG Ab (Nonreactive) Short CBC 09/22/18 Range/Units 05:51 WBC 5.8 (4.0-11.0) th/mm3 Hgb 8.4 L (11.6-15.3) gm/dL Hct 23.5 L (35.0-46.0) % Plt Count 156 (150-450) th/mm3 BMP 09/22/18 05:51 Sodium 142 Potassium 3.9 D Chloride 109 H Carbon Dioxide 25.8 BUN 29 H Creatinine 3.34 H Calcium 8.1 L D <Villa R3,Samuel S - 09/22/18 08:46> Physical Exam Vital signs: Vital Signs 09/25/18 16:00 09/25/18 21:00 09/25/18 23:01 Temperature 97.8 F 98.3 F 97.9 F Pulse Rate 70 69 70 Respiratory Rate 16 18 18 Blood Pressure 114/56 L 131/60 106/53 L Pulse Oximetry 97 98 98 09/26/18 05:22 09/26/18 08:00 Temperature 98.2 F 98.3 F Pulse Rate 66 67 Respiratory Rate 18 14 Blood Pressure 120/66 130/58 L Pulse Oximetry 97 95 Intake & Output 09/25/18 09/26/18 09/26/18 18:59 06:59 18:59 Intake Total 720 / 720 720 / 720 Balance 720 / 720 720 / 720 Weight 71 kg Intake: Oral 720 / 720 720 / 720 Other: # Voids 3 1 Date of Last Bowel Movement 09/24/18 09/25/18 09/25/18 # Bowel Movements 1 <Young,Joshua L - 09/26/18 12:27> Vital Signs 09/21/18 11:23 09/21/18 20:06 09/21/18 21:13 Temperature 97.6 F 98.5 F Pulse Rate 60 69 66 Respiratory Rate 18 18 Blood Pressure 161/72 H 141/66 H Pulse Oximetry 99 98 09/21/18 21:38 09/22/18 00:00 09/22/18 02:57 Temperature Pulse Rate 65 Respiratory Rate 18 Blood Pressure Pulse Oximetry 99 09/22/18 03:57 Temperature Pulse Rate 63 Respiratory Rate Blood Pressure Pulse Oximetry Intake & Output 09/21/18 09/22/18 09/22/18 18:59 06:59 18:59 Output Total 500 / 500 Balance -500 / -500 Output: Hemodialysis Amount 500 / 500 Other: Date of Last Bowel Movement 09/20/18 09/20/18 <Villa Samuel Pacheco S - 09/22/18 08:46> - Constitutional no acute distress, average body habitus <Villa R3,Samuel S - 09/22/18 08:46> - Routine HEENT Exam Head: Present: normocephalic, atraumatic <Villa R3,Samuel S - 09/22/18 08:46> ENT: Present: mucous membranes moist <Villa R3,Samuel S - 09/22/18 08:46> - Routine Respiratory Exam Present: CTA bilaterally. Absent: accessory muscle use, wheezes, crackles < Villa R3,Samuel S - 09/22/18 08:46> - Routine Cardiovascular Exam Present: RRR, S1, S2. Absent: murmur <Villa R3,Samuel S - 09/22/18 08:46> - Routine Abdominal Exam Present: soft. Absent: tenderness <Villa Junior,Sameul S - 09/22/18 08:46> - Routine Extremities Exam Absent: cyanosis, edema <Villa R3,Samuel S - 09/22/18 08:46> - Routine Neurological Exam Present: alert, moving all extremities, hearing grossly intact, normal speech. Absent: altered mental status <Villa Junior,Samuel S - 09/22/18 08:46> Assessment and Plan - Assessment (1) Wphzl-se-dowklux kidney injury Code(s): N17.9 - Acute kidney failure, unspecified; N18.9 - Chronic kidney disease, unspecified Status: Acute (2) Diabetes mellitus Code(s): E11.9 - Type 2 diabetes mellitus without complications Status: Acute (3) Hypertension Code(s): I10 - Essential (primary) hypertension Status: Acute (4) Cirrhosis of liver Code(s): K74.60 - Unspecified cirrhosis of liver Status: Chronic (5) Nutrition, metabolism, and development symptoms Code(s): R63.8 - Other symptoms and signs concerning food and fluid intake Status: Acute <IgnacioJoshua Ramiro - 09/26/18 12:27> (1) Crfoq-yp-hzlzuom kidney injury Code(s): N17.9 - Acute kidney failure, unspecified; N18.9 - Chronic kidney disease, unspecified Status: Acute Plan: Underwent dialysis yesterday, tolerated well. Reports prior baseline at GFR of 22. 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 Has 90% interstitial sclerosis UA with hematuria and proteinuria Hypoalbuminemia Urine Na 113 Urine Osm 392 Complement levels normal MELE screen positive, titer mild at 1:40, speckled pattern Anti-dsDNA negative ANCA studies negative Anemia: Hgb stable around 9, asymptomatic Nephrology consulted, appreciate assistance Holding Bumex and Aldactone Strict I/O Address HTN as below Will benefit from outpatient addition of HEIDI-I or ARB HD again today If outpatient dialysis arranged, may be able to be discharged this weekend (has good outpatient follow up). Will discuss with nephrology team. Electrolytes with hyperkalemia which is now stable, see below (2) Cirrhosis of liver Code(s): K74.60 - Unspecified cirrhosis of liver Status: Chronic Plan: Known history of liver cirrhosis, known history of hepatitis C s/p treatment with antiviral Liver enzymes, bilirubin within normal limits -Monitor clinically, repeat LFTs as indicated -Per dialysis center request check Hep profile (showed Hep C only) -HCV RNA test pending (3) Diabetes mellitus Code(s): E11.9 - Type 2 diabetes mellitus without complications Status: Acute Plan: Known history of diabetes, takes insulin glargine 10 units at night BG at hospital target at the moment with SSI Continue Low-dose sliding scale Target BG 140-180 (4) Hypertension Code(s): I10 - Essential (primary) hypertension Status: Acute Plan: BP now much closer to goal (target for her < 140/90 given CKD) EKG showed sinus bradycardia, heart rate 53, no ST changes -Continuing home amlodipine (increased to 5 mg BID) -Continue Coreg to 3.125 PO BID instead of 6.25 daily (decreased due to bradycardia which has now resolved) -Continue Hydralazine 50 mg PO TID (5) Hyperkalemia Code(s): E87.5 - Hyperkalemia Status: Resolved Plan: Due to renal disease, resolved with dialysis -Discontinue telemetry (6) Nutrition, metabolism, and development symptoms Code(s): R63.8 - Other symptoms and signs concerning food and fluid intake Status: Acute Plan: Encouraging p.o. intake Renal diet <Samuel Welsh S - 09/22/18 08:40> - Assessment and Plan Discharge Planning: If outpatient dialysis arranged, may be able to be discharged this weekend (has good outpatient follow up). Will discuss with nephrology team, appreciate assistance of Nephrology team and CM in coordinating care. Also will need home health PT on discharge, referral placed, appreciate CM assistance with this as well. Hopefully can today/tomorrow if cleared by nephrology. <Allen PachecoSamnicol Brizuela - 09/22/18 08:46> - Attending Attestation The exam, history, and the medical decision-making described in the above note were completed with the assistance of the resident physician. I reviewed and agree with the findings presented. I attest that I had a wyhp-es-athv encounter with the patient on the same day, and personally performed and documented my assessment and findings in the medical record. <Joshua Pierre - 09/26/18 12:27> <Allen PachecoSamuel S - Last Filed: 09/22/18 08:40> (1) Dkpjw-ev-ucegrtb kidney injury Qualifiers: Acute renal failure type: unspecified Chronic kidney disease stage: stage 4 ( severe) Qualified Code(s): N17.9 - Acute kidney failure, unspecified; N18.5 - Chronic kidney disease, stage 5 (2) Cirrhosis of liver Qualifiers: Hepatic cirrhosis type: other cirrhosis Qualified Code(s): K74.69 - Other cirrhosis of liver (3) Diabetes mellitus Qualifiers: Diabetes mellitus type: type 2 Diabetes mellitus prison insulin use: with manager intermediate use Diabetes mellitus complication status: with kidney complications Diabetes mellitus complication detail: with chronic kidney disease (4) Hypertension Qualifiers: Hypertension type: essential hypertension Qualified Code(s): I10 - Essential (primary) hypertension <Joshua Pierre - Last Filed: 09/26/18 12:27> (1) Jywep-ya-pypsogd kidney injury Qualifiers: Acute renal failure type: unspecified Chronic kidney disease stage: stage 5, not on chronic dialysis Qualified Code(s): N17.9 - Acute kidney failure, unspecified; N18.5 - Chronic kidney disease, stage 5 (2) Diabetes mellitus Qualifiers: Diabetes mellitus type: type 2 Diabetes mellitus prison insulin use: with prison use Diabetes mellitus complication status: with kidney complications Diabetes mellitus complication detail: with chronic kidney disease Chronic kidney disease stage: stage 5, not on chronic dialysis Qualified Code(s): E11.22 - Type 2 diabetes mellitus with diabetic chronic kidney disease; N18.5 - Chronic kidney disease, stage 5; Z79.4 - FPC (current) use of insulin (3) Hypertension Qualifiers: Hypertension type: essential hypertension Qualified Code(s): I10 - Essential (primary) hypertension (4) Cirrhosis of liver Qualifiers: Hepatic cirrhosis type: other cirrhosis Qualified Code(s): K74.69 - Other cirrhosis of liver <Samuel Welsh S - Last Filed: 09/22/18 08:40> (1) Hpgos-lf-fsocmsh kidney injury Qualifiers: Acute renal failure type: unspecified Chronic kidney disease stage: stage 4 ( severe) Qualified Code(s): N17.9 - Acute kidney failure, unspecified; N18.5 - Chronic kidney disease, stage 5 (2) Cirrhosis of liver Qualifiers: Hepatic cirrhosis type: other cirrhosis Qualified Code(s): K74.69 - Other cirrhosis of liver (3) Diabetes mellitus Qualifiers: Diabetes mellitus type: type 2 Diabetes mellitus prison insulin use: with manager intermediate use Diabetes mellitus complication status: with kidney complications Diabetes mellitus complication detail: with chronic kidney disease (4) Hypertension Qualifiers: Hypertension type: essential hypertension Qualified Code(s): I10 - Essential (primary) hypertension <Joshua Pierre - Last Filed: 09/26/18 12:27> (1) Lapht-is-dcceymz kidney injury Qualifiers: Acute renal failure type: unspecified Chronic kidney disease stage: stage 5, not on chronic dialysis Qualified Code(s): N17.9 - Acute kidney failure, unspecified; N18.5 - Chronic kidney disease, stage 5 (2) Diabetes mellitus Qualifiers: Diabetes mellitus type: type 2 Diabetes mellitus manager intermediate insulin use: with manager intermediate use Diabetes mellitus complication status: with kidney complications Diabetes mellitus complication detail: with chronic kidney disease Chronic kidney disease stage: stage 5, not on chronic dialysis Qualified Code(s): E11.22 - Type 2 diabetes mellitus with diabetic chronic kidney disease; N18.5 - Chronic kidney disease, stage 5; Z79.4 - FPC (current) use of insulin (3) Hypertension Qualifiers: Hypertension type: essential hypertension Qualified Code(s): I10 - Essential (primary) hypertension (4) Cirrhosis of liver Qualifiers: Hepatic cirrhosis type: other cirrhosis Qualified Code(s): K74.69 - Other cirrhosis of liver
[2018-09-22] MEDS: hydrALAZINE 50 MG Tablet PO SCH ×3 (11:31→18:44)
[2018-09-22] MEDS: amLODIPine 5 MG Tablet PO SCH ×2 (11:31→20:36)
[2018-09-22] MEDS: Senna/Docusate Sodium 8.6/50 MG Tablet PO SCH ×2 (11:31→20:36)
[2018-09-22] MEDS: Insulin NovoLOG Aspart Correctional Sugar Inj SQ SCH ×4 (11:32→20:37)
[2018-09-22] MEDS ORDERED: Tuberculin PPD 5 UNITS/0.1 ML Syringe I-DERMAL ONE (12:00)
--- NOTE | 2018-09-22 14:18 | P.PNNP ---
Subjective Interval history: No acute complaints, seen on dialysis Physical Exam Vital signs: Vital Signs 09/21/18 20:06 09/21/18 21:13 09/21/18 21:38 Temperature 98.5 F Pulse Rate 69 66 Respiratory Rate 18 Blood Pressure 141/66 H Pulse Oximetry 98 99 09/22/18 00:00 09/22/18 02:57 09/22/18 03:57 Temperature Pulse Rate 65 63 Respiratory Rate 18 Blood Pressure Pulse Oximetry 09/22/18 08:00 09/22/18 12:00 Temperature 98 F 97.8 F Pulse Rate 66 66 Respiratory Rate 16 16 Blood Pressure 128/60 145/64 H Pulse Oximetry 99 98 Intake & Output 09/21/18 09/22/18 09/22/18 18:59 06:59 18:59 Output Total 500 / 500 Balance -500 / -500 Output: Hemodialysis Amount 500 / 500 Other: Date of Last Bowel Movement 09/20/18 09/20/18 09/22/18 - Constitutional no acute distress - Routine HEENT Exam Head: Present: normocephalic Eye: Present: EOMI ENT: Present: mucous membranes moist - Routine Neck Exam Present: supple - Routine Respiratory Exam Present: CTA bilaterally - Routine Cardiovascular Exam Present: RRR - Routine Abdominal Exam Present: soft - Routine Skin Exam Present: intact - Routine Neurological Exam Present: alert, oriented X3 - Detailed Neurological Exam: Coma Scale Eye Opening: Spontaneous - Routine Psychiatric Exam Present: normal affect Assessment and Plan - Assessment (1) Ysptj-bo-eokabcy kidney injury Code(s): N17.9 - Acute kidney failure, unspecified; N18.9 - Chronic kidney disease, unspecified Status: Acute Qualifiers: Acute renal failure type: unspecified Chronic kidney disease stage: stage 4 (severe) Qualified Code(s): N17.9 - Acute kidney failure, unspecified; N18.4 - Chronic kidney disease, stage 4 (severe) Plan: The Kidney Biopsy showing Diabetic Nephropathy with Glomerulosclerosis. Has 90% interstitial sclerosis. Apparent ESRD now, has tunneled catheter in place Ok for discharge once outpatient dialysis arrangements in place If prolonged stay, can evaluate for AV access inpatient. Otherwise can evaluate as outpatient. Will order vein mapping (2) Diabetes mellitus Code(s): E11.9 - Type 2 diabetes mellitus without complications Status: Acute Qualifiers: Diabetes mellitus type: type 2 Diabetes mellitus intermediate school teacher insulin use: with intermediate school teacher use Diabetes mellitus complication status: with kidney complications Diabetes mellitus complication detail: with chronic kidney disease Plan: Maintain blood sugars between 140 mg/dl to 180 mg/dl while hospitalized. Has SS available. Well controlled. (3) Hypertension Code(s): I10 - Essential (primary) hypertension Status: Acute Qualifiers: Hypertension type: essential hypertension Qualified Code(s): I10 - Essential (primary) hypertension Plan: Better controlled. On amlodipine, hydralazine, and coreg.
--- NOTE | 2018-09-22 19:35 | US ---
EXAM DATE: 09/22/2018 7:30 PM EST AGE/SEX: 58 years / Female INDICATIONS: AVF placement. CLINICAL DATA: This is the patient's initial encounter. Patient reports that signs and symptoms have been present for 1 day and indicates a pain score of 0/10. MEDICAL/SURGICAL HISTORY: Cirrhosis. Hypertension. Anxiety. Depression. Diabetes. Heart murmur . Hepatitis C. Renal insufficiency. None. COMPARISON: No prior exams available for comparison. FINDINGS: Right Upper Extremity: The vessels are compressible and augmentation response is documented. No fill ing defects are seen. The flow is phasic with respiration. Left Upper Extremity: Nonocclusive thrombus is noted within the left cephalic vein in the upper arm. The remainder of the deep veins of the left M the demonstrate normal color flow and compressibility. Other: None. CONCLUSION: 1. Nonocclusive thrombus within the left cephalic vein in the upper arm. 2. No evidence of deep venous thrombosis within the right upper extremity. Electronically signed by: Pablo Shoemaker MD Board Certified Radiologist 09/22/2018 7:34 PM EST
--- NOTE | 2018-09-22 19:41 | US ---
EXAM DATE: 09/22/2018 7:37 PM EST AGE/SEX: 58 years / Female INDICATIONS: AVF placement. CLINICAL DATA: This is the patient's initial encounter. Patient reports that signs and symptoms have been present for 1 day and indicates a pain score of 0/10. MEDICAL/SURGICAL HISTORY: Cirrhosis. Hypertension. Anxiety. Depression. Diabetes. Heart murmur . Hepatitis C. Renal insufficiency. None. COMPARISON: [facility] [place], VENOUS DOPPLER ARM BI, 09/22/2018. . MEASUREMENTS: RIGHT: CEPHALIC: Origin:__2 mm Mid-Arm:__2 mm Elbow:__1 mm Forearm:__2 mm Wrist:__3 mm BASILIC: Origin:__3 mm Mid-Arm:__2 mm Elbow:__2 mm ARTERIES: Brachial:__4 mm Ulnar:__3 mm Radial:__2 mm VEINS: Radial:__1 mm Ulnar:__1 mm LEFT: CEPHALIC: Origin:__2 mm Mid-Arm:__2 mm Elbow:__3 mm Forearm:__2 mm Wrist:__1 mm BASILIC: Origin:__2 mm Mid-Arm:__2 mm Elbow:__1 mm ARTERIES: Brachial:__5 mm Ulnar:__2 mm Radial:__3 mm VEINS: Radial:__2 mm Ulnar:__2 mm FINDINGS: The venous system of the upper extremities are patent by color Doppler imaging. Measurements of the arm veins (in mm) are listed above. CONCLUSION: 1. Venous mapping was performed as described above. 2. Nonocclusive thrombus is noted within the left cephalic vein in the upper arm. Electronically signed by: Pablo Shoemaker MD Board Certified Radiologist 09/22/2018 7:40 PM EST
[2018-09-23] MEDS: Insulin NovoLOG Aspart Correctional Sugar Inj SQ SCH ×4 (08:55→20:16)
[2018-09-23] MEDS: amLODIPine 5 MG Tablet PO SCH ×2 (08:56→19:59)
[2018-09-23] MEDS: hydrALAZINE 50 MG Tablet PO SCH ×2 (08:56→12:18)
[2018-09-23] MEDS: Senna/Docusate Sodium 8.6/50 MG Tablet PO SCH ×2 (08:57→20:19)
--- NOTE | 2018-09-23 08:57 | P.PNFP ---
Subjective Interval history: Ms Ellison is known to me from her admission. She had transient mental status changes but cleared up virtually immediately. She ended up needing dialysis as she was fluid overloaded on admission and her renal fxn worsened. She had a renal bx that showed her valet manager DM has led to her worsening renal fxn. She is "feeling better than she has in weeks". She is eating well, wishes to remove her telemetry now and wants to go home CODIE. She has no complaints at all today except as she is feeling better she is "tired of being in the hospital ". However, she understands she will need to have dialysis arranged as an outpt before discharge Results - Labs Result diagrams: 09/23/18 09:02 09/23/18 09:02 Abnormal lab results 09/22/18 Range/Units 20:34 POC Glucose 178 H (68-110) mg/dl - Imaging Impressions Upper Extremity Ultrasound 09/22/18 00:00 CONCLUSION: 1. Venous mapping was performed as described above. 2. Nonocclusive thrombus is noted within the left cephalic vein in the upper arm. Venous Doppler Study 09/22/18 00:00 CONCLUSION: 1. Nonocclusive thrombus within the left cephalic vein in the upper arm. 2. No evidence of deep venous thrombosis within the right upper extremity. Physical Exam Vital signs: Vital Signs 09/22/18 12:00 09/22/18 16:00 09/22/18 20:05 Temperature 97.8 F 97.8 F Pulse Rate 66 67 70 Respiratory Rate 16 16 Blood Pressure 145/64 H 116/51 L Pulse Oximetry 98 97 09/22/18 20:30 09/23/18 00:00 09/23/18 01:00 Temperature 97.9 F 98.1 F Pulse Rate 65 63 64 Respiratory Rate 17 17 Blood Pressure 119/57 L 136/63 Pulse Oximetry 97 96 09/23/18 03:59 09/23/18 05:05 09/23/18 08:00 Temperature 98.5 F 98.0 F Pulse Rate 60 62 62 Respiratory Rate 17 18 Blood Pressure 97/50 L 126/56 L Pulse Oximetry 95 97 Intake & Output 09/22/18 09/23/18 09/23/18 18:59 06:59 18:59 Intake Total 720 / 720 Output Total 1000 / 1000 Balance -1000 / -1000 720 / 720 Weight 70.2 kg Intake: Oral 720 / 720 Output: Hemodialysis Amount 1000 / 1000 Other: # Voids 2 Date of Last Bowel Movement 09/22/18 09/22/18 # Bowel Movements 0 - Constitutional no acute distress, average body habitus, cooperative - Routine HEENT Exam Head: Present: normocephalic, atraumatic Eye: Present: EOMI, PERRL ENT: Present: external ear normal - Routine Neck Exam Present: supple, trachea midline. Absent: tracheal deviation - Routine Respiratory Exam Present: CTA bilaterally. Absent: accessory muscle use, patient mechanically ventilated, decreased breath sounds, prolonged expiratory phase, rales, respiratory distress, rhonchi, stridor, wheezes, crackles, distant breath sounds , diminished air movement - Routine Cardiovascular Exam Present: RRR. Absent: murmur, gallop, rubs, bradycardia, tachycardia, irregular rhythm, irregularly irregular, JVD - Routine Abdominal Exam Present: soft. Absent: distended - Routine Extremities Exam Present: full ROM, vascular access (neck). Absent: cyanosis, clubbing, edema, pallor, extremity cold to touch - Routine Skin Exam Present: intact. Absent: cyanosis, erythema, dry, pallor, mottling, petechiae - Routine Neurological Exam Present: alert, oriented X3, normal speech. Absent: sensory deficit, motor deficit, altered mental status - Routine Psychiatric Exam Present: cooperative. Absent: agitated Assessment and Plan - Assessment (1) Wiezw-ur-tgdjzme kidney injury Code(s): N17.9 - Acute kidney failure, unspecified; N18.9 - Chronic kidney disease, unspecified Status: Acute Plan: she is having dialysis here in the hospital and tolerating this well. Reports prior baseline at GFR of 22. 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 Has 90% interstitial sclerosis UA with hematuria and proteinuria Hypoalbuminemia Urine Na 113 Urine Osm 392 Complement levels normal MELE screen positive, titer mild at 1:40, speckled pattern Anti-dsDNA negative ANCA studies negative Anemia: Hgb stable around 9, asymptomatic Nephrology consulted, appreciate assistance Holding Bumex and Aldactone Strict I/O Address HTN as below Will benefit from outpatient addition of HEIDI-I or ARB by Nephrology when they deem it is appropriate HD again today If outpatient dialysis arranged, may be able to be discharged tomorrow (has good outpatient follow up). Discussed with nephrology team. [facility] so this needs top be arranged when they are available Electrolytes with hyperkalemia which is now stable, see below (2) Diabetes mellitus Code(s): E11.9 - Type 2 diabetes mellitus without complications Status: Acute Plan: Known history of diabetes, takes insulin glargine 10 units at night BG at hospital target at the moment with SSI Continue Low-dose sliding scale Target BG 140-180 many people need less insulin when their kidneys fail (3) Hypertension Code(s): I10 - Essential (primary) hypertension Status: Acute Plan: BP now much closer to goal (target for her < 140/90 given CKD) EKG showed sinus bradycardia, heart rate 53, no ST changes -Continuing home amlodipine (increased to 5 mg BID) -Continue Coreg to 3.125 PO BID instead of 6.25 daily (decreased due to bradycardia which has now resolved) -Continue Hydralazine 50 mg PO TID (4) Cirrhosis of liver Code(s): K74.60 - Unspecified cirrhosis of liver Status: Chronic Plan: Known history of liver cirrhosis, known history of hepatitis C s/p treatment with antiviral Liver enzymes, bilirubin within normal limits -Monitor clinically, repeat LFTs as indicated -Per dialysis center request check Hep profile (showed Hep C only) -HCV RNA test pending per pt she was treated to cure (5) Hyperkalemia Code(s): E87.5 - Hyperkalemia Status: Resolved Plan: Due to renal disease, resolved with dialysis -Discontinue telemetry (6) Nutrition, metabolism, and development symptoms Code(s): R63.8 - Other symptoms and signs concerning food and fluid intake Status: Acute Plan: Encouraging p.o. intake Renal diet - Assessment and Plan 4-year-old female with a history of liver cirrhosis, CKD, diabetes, hypertension presented to the emergency room with 1 day history of altered mental status. No focal deficits, CT head negative on admission. Found to have significant acute on chronic kidney injury. Also fluid overload with bilateral lower extremity edema and pleural effusions. Continuing diuretics on admission and consulting nephrology. Also found to be in hypertensive urgency on admission, improved with hydralazine. Discharge Planning: she and her sister wish her to stay at her sisters house when discharged (1) Bjfcm-zg-lfpljls kidney injury Qualifiers: Acute renal failure type: unspecified Chronic kidney disease stage: stage 5, not on chronic dialysis Qualified Code(s): N17.9 - Acute kidney failure, unspecified; N18.5 - Chronic kidney disease, stage 5 (2) Diabetes mellitus Qualifiers: Diabetes mellitus type: type 2 Diabetes mellitus valet manager insulin use: with valet manager use Diabetes mellitus complication status: with kidney complications Diabetes mellitus complication detail: with chronic kidney disease Chronic kidney disease stage: stage 5, not on chronic dialysis Qualified Code(s): E11.22 - Type 2 diabetes mellitus with diabetic chronic kidney disease; N18.5 - Chronic kidney disease, stage 5; Z79.4 - risk control manager (current) use of insulin (3) Hypertension Qualifiers: Hypertension type: essential hypertension Qualified Code(s): I10 - Essential (primary) hypertension (4) Cirrhosis of liver Qualifiers: Hepatic cirrhosis type: other cirrhosis Qualified Code(s): K74.69 - Other cirrhosis of liver
[2018-09-23 09:39] LABS: Hematocrit 24.7 % (35.0-46.0); Hemoglobin 9.1 gm/dL (11.6-15.3); Mean Corpuscular Hemoglobin 34.6 pg (27.0-34.0); Mean Corpuscular Volume 94.5 fL (80.0-100.0); Mean Platelet Volume 8.5 fL (7.0-11.0); Platelet Count 171 th/mm3 (150-450); Red Blood Count 2.62 mil/mm3 (4.00-5.30); Red Cell Distribution Width 15.9 % (11.6-17.2); White Blood Count 5.8 th/mm3 (4.0-11.0)
[2018-09-23 09:41] LABS: Mean Corpuscular HGB Conc 36.6 % (32.0-36.0)
[2018-09-23 10:28] LABS: Calcium 7.7 mg/dL (8.5-10.1); Carbon Dioxide 26.6 meq/L (21.0-32.0); Potassium 3.6 meq/L (3.5-5.1)
[2018-09-23] MEDS: hydrALAZINE 25 MG Tablet PO SCH ×2 (14:26→17:05)
--- NOTE | 2018-09-23 17:13 | P.PNNP ---
Subjective Interval history: no acute complaints, tolerated HD yesterday Physical Exam Vital signs: Vital Signs 09/22/18 20:05 09/22/18 20:30 09/23/18 00:00 Temperature 97.9 F Pulse Rate 70 65 63 Respiratory Rate 17 Blood Pressure 119/57 L Pulse Oximetry 97 09/23/18 01:00 09/23/18 03:59 09/23/18 05:05 Temperature 98.1 F 98.5 F Pulse Rate 64 60 62 Respiratory Rate 17 17 Blood Pressure 136/63 97/50 L Pulse Oximetry 96 95 09/23/18 08:00 09/23/18 09:25 09/23/18 12:00 Temperature 98.0 F 97.7 F Pulse Rate 62 59 L 60 Respiratory Rate 18 14 Blood Pressure 126/56 L 118/56 L Pulse Oximetry 97 97 Intake & Output 09/22/18 09/23/18 09/23/18 18:59 06:59 18:59 Intake Total 720 / 720 Output Total 1000 / 1000 Balance -1000 / -1000 720 / 720 Weight 70.2 kg Intake: Oral 720 / 720 Output: Hemodialysis Amount 1000 / 1000 Other: # Voids 2 Date of Last Bowel Movement 09/22/18 09/22/18 09/23/18 # Bowel Movements 0 - Constitutional no acute distress - Routine HEENT Exam Head: Present: normocephalic Eye: Present: EOMI ENT: Present: mucous membranes moist - Routine Neck Exam Present: supple - Routine Respiratory Exam Present: CTA bilaterally - Routine Cardiovascular Exam Present: RRR - Routine Abdominal Exam Present: soft - Routine Extremities Exam Present: vascular access - Routine Skin Exam Present: intact - Routine Neurological Exam Present: alert, oriented X3 - Detailed Neurological Exam: Coma Scale Eye Opening: Spontaneous - Routine Psychiatric Exam Present: normal affect Assessment and Plan - Assessment (1) Shqth-uy-wszbixf kidney injury Code(s): N17.9 - Acute kidney failure, unspecified; N18.9 - Chronic kidney disease, unspecified Status: Acute Qualifiers: Acute renal failure type: unspecified Chronic kidney disease stage: stage 5 , not on chronic dialysis Qualified Code(s): N17.9 - Acute kidney failure, unspecified; N18.5 - Chronic kidney disease, stage 5 Plan: The Kidney Biopsy showing Diabetic Nephropathy with Glomerulosclerosis. Has 90% interstitial sclerosis. Apparent ESRD now, has tunneled catheter in place Seen on HD yesterday and tolerated HD well. Holiday schedule - will do HD tomorrow, then on . Ok for discharge once outpatient dialysis arrangements in place If prolonged stay, can evaluate for AV access inpatient. Otherwise can evaluate as outpatient. Possible D/C soon if social work arrangements are made for dialysis placement (2) Diabetes mellitus Code(s): E11.9 - Type 2 diabetes mellitus without complications Status: Acute Qualifiers: Diabetes mellitus type: type 2 Diabetes mellitus senior living insulin use: with local intermodal truck driver use Diabetes mellitus complication status: with kidney complications Diabetes mellitus complication detail: with chronic kidney disease Chronic kidney disease stage: stage 5, not on chronic dialysis Qualified Code(s): E11.22 - Type 2 diabetes mellitus with diabetic chronic kidney disease; N18.5 - Chronic kidney disease, stage 5; Z79.4 - dedicated intermodal truck driver ( current) use of insulin Plan: Maintain blood sugars between 140 mg/dl to 180 mg/dl while hospitalized. Has SS available. Well controlled. (3) Hypertension Code(s): I10 - Essential (primary) hypertension Status: Acute Qualifiers: Hypertension type: essential hypertension Qualified Code(s): I10 - Essential (primary) hypertension Plan: Better controlled. On amlodipine, hydralazine, and coreg.
[2018-09-24] MEDS: Insulin NovoLOG Aspart Correctional Sugar Inj SQ SCH ×3 (08:00→17:09)
[2018-09-24] MEDS: Senna/Docusate Sodium 8.6/50 MG Tablet PO SCH (08:50)
[2018-09-24] MEDS: hydrALAZINE 25 MG Tablet PO SCH ×3 (08:50→18:14)
[2018-09-24] MEDS: amLODIPine 5 MG Tablet PO SCH (08:50)
--- NOTE | 2018-09-24 09:00 | P.PNFP ---
Subjective Interval history: 58-year-old female with a history of liver cirrhosis, CKD, diabetes, hypertension admitted with 1 day history of altered mental status and also found to have acute on chronic renal injury and hypertensive urgency. Now being seen for follow up. Today she feels well, feels her confusion has resolved. No chest pains or shortness of breath. Overall she states dialysis has made her feel much better. <Allen PachecoSamuel S - 09/24/18 09:00> Results - Labs Result diagrams: 09/23/18 09:02 09/23/18 09:02 <Tamica Batres - 09/24/18 12:06> Abnormal lab results 09/23/18 09/23/18 Range/Units 16:36 20:06 POC Glucose 212 H 182 H (68-110) mg/dl <Tamica Batres - 09/24/18 12:06> Abnormal lab results 09/23/18 09/23/18 09/23/18 Range/Units 09:02 09:02 16:36 RBC 2.62 L (4.00-5.30) mil/mm3 Hgb 9.1 L (11.6-15.3) gm/dL Hct 24.7 L (35.0-46.0) % MCH 34.6 H (27.0-34.0) pg MCHC 36.6 H (32.0-36.0) % Creatinine 2.82 H (0.50-1.00) mg/dL Estimated GFR 17 L (>89) mL/min POC Glucose 212 H (68-110) mg/dl Calcium 7.7 L (8.5-10.1) mg/dL 09/23/18 Range/Units 20:06 RBC (4.00-5.30) mil/mm3 Hgb (11.6-15.3) gm/dL Hct (35.0-46.0) % MCH (27.0-34.0) pg MCHC (32.0-36.0) % Creatinine (0.50-1.00) mg/dL Estimated GFR (>89) mL/min POC Glucose 182 H (68-110) mg/dl Calcium (8.5-10.1) mg/dL Short CBC 09/23/18 Range/Units 09:02 WBC 5.8 (4.0-11.0) th/mm3 Hgb 9.1 L (11.6-15.3) gm/dL Hct 24.7 L (35.0-46.0) % Plt Count 171 (150-450) th/mm3 BMP 09/23/18 09:02 Sodium 141 Potassium 3.6 Chloride 105 Carbon Dioxide 26.6 BUN 17 Creatinine 2.82 H Calcium 7.7 L <Villa JuniorSamuel S - 09/24/18 09:00> Physical Exam Vital signs: Vital Signs 09/23/18 16:00 09/23/18 19:15 09/23/18 23:30 Temperature 98.3 F 98.4 F 98.0 F Pulse Rate 70 68 60 Respiratory Rate 18 18 17 Blood Pressure 123/59 L 122/70 111/53 L Pulse Oximetry 97 95 96 09/24/18 03:36 09/24/18 08:00 Temperature 97.6 F 97.3 F L Pulse Rate 62 61 Respiratory Rate 16 Blood Pressure 125/61 122/60 Pulse Oximetry 97 Intake & Output 09/23/18 09/24/18 09/24/18 18:59 06:59 18:59 Intake Total 720 / 720 Balance 720 / 720 Weight 71 kg Intake: Oral 720 / 720 Other: # Voids 3 Date of Last Bowel Movement 09/23/18 09/23/18 09/23/18 # Bowel Movements 1 <Tamica Batres - 09/24/18 12:06> Vital Signs 09/23/18 09:25 09/23/18 12:00 09/23/18 16:00 Temperature 97.7 F 98.3 F Pulse Rate 59 L 60 70 Respiratory Rate 14 18 Blood Pressure 118/56 L 123/59 L Pulse Oximetry 97 97 09/23/18 19:15 09/23/18 23:30 09/24/18 03:36 Temperature 98.4 F 98.0 F 97.6 F Pulse Rate 68 60 62 Respiratory Rate 18 17 16 Blood Pressure 122/70 111/53 L 125/61 Pulse Oximetry 95 96 97 09/24/18 08:00 Temperature 97.3 F L Pulse Rate 61 Respiratory Rate Blood Pressure 122/60 Pulse Oximetry Intake & Output 09/23/18 09/24/18 09/24/18 18:59 06:59 18:59 Intake Total 720 / 720 Balance 720 / 720 Weight 71 kg Intake: Oral 720 / 720 Other: # Voids 3 Date of Last Bowel Movement 09/23/18 09/23/18 # Bowel Movements 1 <VillaSamuel De León S - 09/24/18 09:00> - Constitutional no acute distress, average body habitus, cooperative <Villa R3Samuel S - 09:00> - Routine HEENT Exam Head: Present: normocephalic, atraumatic <Villa R3,Samuel S - 09/24/18 09:00> ENT: Present: mucous membranes moist <Villa R3,Samuel S - 09/24/18 09:00> - Routine Respiratory Exam Present: CTA bilaterally. Absent: accessory muscle use, wheezes, crackles < Villa R3,Samuel S - 09/24/18 09:00> - Routine Cardiovascular Exam Present: RRR, S1, S2. Absent: murmur <Villa R3,Samuel S - 09/24/18 09:00> - Routine Abdominal Exam Present: soft. Absent: tenderness, distended <Villa R3,Samuel S - 09/24/18 09 :00> - Routine Neurological Exam Present: alert, moving all extremities <Villa R3Samuel S - 09/24/18 09:00> - Detailed Neurological Exam: Coma Scale Eye Opening: Spontaneous <Villa R3,Samuel S - 09/24/18 09:00> Verbal Response: Oriented <Villa R3,Samuel S - 09/24/18 09:00> Motor Response: Obey commands <Villa R3,Samuel S - 09/24/18 09:00> Percy Coma Scale Total: 15 <Villa R3,Samuel S - 09/24/18 09:00> - Routine Psychiatric Exam Present: normal affect <Villa R3,Samuel S - 09/24/18 09:00> Assessment and Plan - Assessment (1) Pxpfu-ii-yaqxnlk kidney injury Code(s): N17.9 - Acute kidney failure, unspecified; N18.9 - Chronic kidney disease, unspecified Status: Acute (2) Diabetes mellitus Code(s): E11.9 - Type 2 diabetes mellitus without complications Status: Acute (3) Hypertension Code(s): I10 - Essential (primary) hypertension Status: Acute (4) Cirrhosis of liver Code(s): K74.60 - Unspecified cirrhosis of liver Status: Chronic (5) Nutrition, metabolism, and development symptoms Code(s): R63.8 - Other symptoms and signs concerning food and fluid intake Status: Acute <Tamica Batres - 09/24/18 12:06> (1) Oudrv-ux-yzcrugf kidney injury Code(s): N17.9 - Acute kidney failure, unspecified; N18.9 - Chronic kidney disease, unspecified Status: Acute Plan: she is having dialysis here in the hospital and tolerating this well. Reports prior baseline at GFR of 22. 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 Has 90% interstitial sclerosis UA with hematuria and proteinuria Hypoalbuminemia Urine Na 113 Urine Osm 392 Complement levels normal MELE screen positive, titer mild at 1:40, speckled pattern Anti-dsDNA negative ANCA studies negative Anemia: Hgb stable around 9, asymptomatic Nephrology consulted, appreciate assistance Holding Bumex and Aldactone Strict I/O Address HTN as below Will benefit from outpatient addition of HEIDI-I or ARB by Nephrology when they deem it is appropriate HD again today, then on (holiday schedule) If outpatient dialysis arranged, can be discharged today (2) Diabetes mellitus Code(s): E11.9 - Type 2 diabetes mellitus without complications Status: Acute Plan: Known history of diabetes, takes insulin glargine 10 units at night BG at hospital target at the moment with SSI Continue Low-dose sliding scale Target BG 140-180 many people need less insulin when their kidneys fail, will f/u glucose (3) Hypertension Code(s): I10 - Essential (primary) hypertension Status: Acute Plan: BP now much closer to goal (target for her < 140/90 given CKD) EKG showed sinus bradycardia, heart rate 53, no ST changes -Continuing home amlodipine (increased to 5 mg BID) -Continue Coreg to 3.125 PO BID instead of 6.25 daily (decreased due to bradycardia which has now resolved) -Continue Hydralazine 25 mg PO TID; if normotensive throughout the day today may discontinue on discharge (4) Cirrhosis of liver Code(s): K74.60 - Unspecified cirrhosis of liver Status: Chronic Plan: Known history of liver cirrhosis, known history of hepatitis C s/p treatment with antiviral Liver enzymes, bilirubin within normal limits -Monitor clinically, repeat LFTs as indicated -Per dialysis center request checked Hep profile (showed Hep C Ab only) -HCV RNA test pending; per pt she was treated to cure (5) Nutrition, metabolism, and development symptoms Code(s): R63.8 - Other symptoms and signs concerning food and fluid intake Status: Acute Plan: Encouraging p.o. intake Renal diet <Allen PachecoSamuel S - 09/24/18 08:53> - Assessment and Plan Discharge Planning: Medically cleared for discharge if outpatient dialysis can be arranged. Appreciate assistance of Nephrology team and CM in coordinating care. Also will need home health PT on discharge, referral placed, appreciate CM assistance with this as well. <Samuel Welsh - 09/24/18 09:00> - Attending Attestation The exam, history, and the medical decision-making described in the above note were completed with the assistance of the resident physician. I reviewed and agree with the findings presented. I attest that I had a [id number] encounter with the patient on the same day, and personally performed and documented my assessment and findings in the medical record. hopefully she can go home today. she needs dialysis arranged prior to d/c but otherwise is ready to go <Tamica Btares M - 09/24/18 12:06> <Saumel Welsh S - Last Filed: 09/24/18 08:53> (1) [id number]-[id number] kidney injury Qualifiers: Acute renal failure type: unspecified Chronic kidney disease stage: stage 5, not on chronic dialysis Qualified Code(s): N17.9 - Acute kidney failure, unspecified; N18.5 - Chronic kidney disease, stage 5 (2) Diabetes mellitus Qualifiers: Diabetes mellitus type: type 2 Diabetes mellitus fdc insulin use: with bolt labeler use Diabetes mellitus complication status: with kidney complications Diabetes mellitus complication detail: with chronic kidney disease Chronic kidney disease stage: stage 5, not on chronic dialysis Qualified Code(s): E11.22 - Type 2 diabetes mellitus with diabetic chronic kidney disease; N18.5 - Chronic kidney disease, stage 5; Z79.4 - care home (current) use of insulin (3) Hypertension Qualifiers: Hypertension type: essential hypertension Qualified Code(s): I10 - Essential (primary) hypertension (4) Cirrhosis of liver Qualifiers: Hepatic cirrhosis type: other cirrhosis Qualified Code(s): K74.69 - Other cirrhosis of liver <Tamica Batres - Last Filed: 09/24/18 12:06> (1) Uexhs-uh-ufvxaxl kidney injury Qualifiers: Acute renal failure type: unspecified Chronic kidney disease stage: stage 5, not on chronic dialysis Qualified Code(s): N17.9 - Acute kidney failure, unspecified; N18.5 - Chronic kidney disease, stage 5 (2) Diabetes mellitus Qualifiers: Diabetes mellitus type: type 2 Diabetes mellitus bolt labeler insulin use: with fdc use Diabetes mellitus complication status: with kidney complications Diabetes mellitus complication detail: with chronic kidney disease Chronic kidney disease stage: stage 5, not on chronic dialysis Qualified Code(s): E11.22 - Type 2 diabetes mellitus with diabetic chronic kidney disease; N18.5 - Chronic kidney disease, stage 5; Z79.4 - design assembler (current) use of insulin (3) Hypertension Qualifiers: Hypertension type: essential hypertension Qualified Code(s): I10 - Essential (primary) hypertension (4) Cirrhosis of liver Qualifiers: Hepatic cirrhosis type: other cirrhosis Qualified Code(s): K74.69 - Other cirrhosis of liver <Samuel Welsh S - Last Filed: 09/24/18 08:53> (1) Ditbq-zq-hefhqlg kidney injury Qualifiers: Acute renal failure type: unspecified Chronic kidney disease stage: stage 5, not on chronic dialysis Qualified Code(s): N17.9 - Acute kidney failure, unspecified; N18.5 - Chronic kidney disease, stage 5 (2) Diabetes mellitus Qualifiers: Diabetes mellitus type: type 2 Diabetes mellitus bolt labeler insulin use: with fdc use Diabetes mellitus complication status: with kidney complications Diabetes mellitus complication detail: with chronic kidney disease Chronic kidney disease stage: stage 5, not on chronic dialysis Qualified Code(s): E11.22 - Type 2 diabetes mellitus with diabetic chronic kidney disease; N18.5 - Chronic kidney disease, stage 5; Z79.4 - design assembler (current) use of insulin (3) Hypertension Qualifiers: Hypertension type: essential hypertension Qualified Code(s): I10 - Essential (primary) hypertension (4) Cirrhosis of liver Qualifiers: Hepatic cirrhosis type: other cirrhosis Qualified Code(s): K74.69 - Other cirrhosis of liver <Tamica Batres M - Last Filed: 09/24/18 12:06> (1) Tmtvc-hu-obenazi kidney injury Qualifiers: Acute renal failure type: unspecified Chronic kidney disease stage: stage 5, not on chronic dialysis Qualified Code(s): N17.9 - Acute kidney failure, unspecified; N18.5 - Chronic kidney disease, stage 5 (2) Diabetes mellitus Qualifiers: Diabetes mellitus type: type 2 Diabetes mellitus bolt labeler insulin use: with bolt labeler use Diabetes mellitus complication status: with kidney complications Diabetes mellitus complication detail: with chronic kidney disease Chronic kidney disease stage: stage 5, not on chronic dialysis Qualified Code(s): E11.22 - Type 2 diabetes mellitus with diabetic chronic kidney disease; N18.5 - Chronic kidney disease, stage 5; Z79.4 - care home (current) use of insulin (3) Hypertension Qualifiers: Hypertension type: essential hypertension Qualified Code(s): I10 - Essential (primary) hypertension (4) Cirrhosis of liver Qualifiers: Hepatic cirrhosis type: other cirrhosis Qualified Code(s): K74.69 - Other cirrhosis of liver
--- NOTE | 2018-09-24 21:10 | P.PNNP ---
Subjective Interval history: Patient seen in the afternoon, eating better, no SOB. Physical Exam Vital signs: Vital Signs 09/23/18 23:30 09/24/18 03:36 09/24/18 08:00 Temperature 98.0 F 97.6 F 97.3 F L Pulse Rate 60 62 61 Respiratory Rate 17 16 Blood Pressure 111/53 L 125/61 122/60 Pulse Oximetry 96 97 09/24/18 12:00 09/24/18 16:00 09/24/18 19:30 Temperature 97.6 F 97.7 F 97.9 F Pulse Rate 62 60 66 Respiratory Rate 18 18 19 Blood Pressure 117/58 L 124/60 148/63 H Pulse Oximetry 96 98 98 Intake & Output 09/24/18 09/24/18 09/25/18 06:59 18:59 06:59 Weight 71 kg Other: Date of Last Bowel Movement 09/23/18 09/23/18 Narrative: GENERAL: Alert and oriented. NAD SKIN: Warm and dry. NECK: Trachea midline. No JVD. CARDIOVASCULAR: Regular rate and rhythm. Murmur appreciated. Permacath right IJ RESPIRATORY: No accessory muscle use. Clear to auscultation diminished in bases. Breath sounds equal bilaterally. GASTROINTESTINAL: Abdomen soft, nontender no significant distention. + BS. MUSCULOSKELETAL: Extremities without clubbing, cyanosis. Assessment and Plan - Assessment (1) Epapb-aw-unswfia kidney injury Code(s): N17.9 - Acute kidney failure, unspecified; N18.9 - Chronic kidney disease, unspecified Status: Acute Qualifiers: Acute renal failure type: unspecified Chronic kidney disease stage: stage 5 , not on chronic dialysis Qualified Code(s): N17.9 - Acute kidney failure, unspecified; N18.5 - Chronic kidney disease, stage 5 Plan: The Kidney Biopsy showing Diabetic Nephropathy with Glomerulosclerosis. Has 90% interstitial sclerosis. Apparent ESRD now, has tunneled catheter in place Seen on HD yesterday and tolerated HD well. HD done in AM. outpatient dialysis arrangements in place If prolonged stay, can evaluate for AV access inpatient. Otherwise can evaluate as outpatient. Possible D/C soon if social work arrangements are made for dialysis placement. Need AVF. (2) Diabetes mellitus Code(s): E11.9 - Type 2 diabetes mellitus without complications Status: Acute Qualifiers: Diabetes mellitus type: type 2 Diabetes mellitus intermediate manager insulin use: with nursing home use Diabetes mellitus complication status: with kidney complications Diabetes mellitus complication detail: with chronic kidney disease Chronic kidney disease stage: stage 5, not on chronic dialysis Qualified Code(s): E11.22 - Type 2 diabetes mellitus with diabetic chronic kidney disease; N18.5 - Chronic kidney disease, stage 5; Z79.4 - half-way ( current) use of insulin Plan: Maintain blood sugars between 140 mg/dl to 180 mg/dl while hospitalized. Has SS available. Well controlled. (3) Hypertension Code(s): I10 - Essential (primary) hypertension Status: Acute Qualifiers: Hypertension type: essential hypertension Qualified Code(s): I10 - Essential (primary) hypertension Plan: Better controlled. On amlodipine, hydralazine, and coreg.
[2018-09-24] MEDS: Heparin 10,000 UNITS/10 ML Vial (for IV use) OTHER PRN (22:34)
[2018-09-25] MEDS: Insulin NovoLOG Aspart Correctional Sugar Inj SQ SCH ×5 (00:16→21:07)
[2018-09-25] MEDS: amLODIPine 5 MG Tablet PO SCH ×3 (00:16→21:07)
[2018-09-25 05:43] LABS: Calcium 7.3 mg/dL (8.5-10.1); Carbon Dioxide 28.7 meq/L (21.0-32.0); Phosphorus 1.7 mg/dL (2.5-4.9)
[2018-09-25 05:46] LABS: Potassium 4.5 meq/L (3.5-5.1)
[2018-09-25 05:57] LABS: Albumin 2.3 g/dL (3.4-5.0); Calcium-Albumin Corrected 8.7 mg/dL (8.5-10.1)
--- NOTE | 2018-09-25 07:16 | P.PNFP ---
Subjective Interval history: Pt seen this morning with nurse at bedside. She has no acute concerns today. States that she feels well and appreciates having dialysis. She is looking forward to having the AV fistula in order to have outpatient dialysis. No fever or chills, n/v, abdominal pain. She hopes to eat better today because she does not like the hospital food. She sits up in a chair during the day and walks around. <Eko R3,Annelise U - 09/25/18 08:57> Results - Labs Result diagrams: 09/23/18 09:02 09/25/18 03:44 <MedardoTamica M - 09/25/18 13:57> Abnormal lab results 09/24/18 09/25/18 09/25/18 Range/Units 17:05 03:44 11:59 Creatinine 2.22 H (0.50-1.00) mg/dL Estimated GFR 23 L (>89) mL/min POC Glucose 121 H 140 H (68-110) mg/dl Calcium 7.3 L* (8.5-10.1) mg/dL Phosphorus 1.7 L (2.5-4.9) mg/dL Albumin 2.3 L (3.4-5.0) g/dL [facility] 09/25/18 03:44 Sodium 137 Potassium 4.5 D Chloride 102 Carbon Dioxide 28.7 BUN 11 Creatinine 2.22 H Calcium 7.3 L* Liver Function 09/25/18 Range/Units 03:44 Albumin 2.3 L (3.4-5.0) g/dL <Tamica Batres - 09/25/18 13:57> Abnormal lab results 09/24/18 09/24/18 09/25/18 Range/Units 12:16 17:05 03:44 Creatinine 2.22 H (0.50-1.00) mg/dL Estimated GFR 23 L (>89) mL/min POC Glucose 147 H 121 H (68-110) mg/dl Calcium 7.3 L* (8.5-10.1) mg/dL Phosphorus 1.7 L (2.5-4.9) mg/dL Albumin 2.3 L (3.4-5.0) g/dL [facility] 09/25/18 03:44 Sodium 137 Potassium 4.5 D Chloride 102 Carbon Dioxide 28.7 BUN 11 Creatinine 2.22 H Calcium 7.3 L* Liver Function 09/25/18 Range/Units 03:44 Albumin 2.3 L (3.4-5.0) g/dL <Eko R3Annelise U - 09/25/18 07:16> Physical Exam Vital signs: Vital Signs 09/24/18 16:00 09/24/18 19:30 09/25/18 00:00 Temperature 97.7 F 97.9 F 97.7 F Pulse Rate 60 66 70 Respiratory Rate 18 19 20 Blood Pressure 124/60 148/63 H 157/69 H Pulse Oximetry 98 98 98 09/25/18 04:00 09/25/18 08:00 09/25/18 12:00 Temperature 98.4 F 97.8 F 97.8 F Pulse Rate 63 65 65 Respiratory Rate 18 14 16 Blood Pressure 114/56 L 120/58 L 123/59 L Pulse Oximetry 98 96 97 Intake & Output 09/24/18 09/25/18 09/25/18 18:59 06:59 18:59 Intake Total 480 / 480 Balance 480 / 480 Intake: Oral 480 / 480 Other: Date of Last Bowel Movement 09/23/18 <Tamica Batres M - 09/25/18 13:57> Vital Signs 09/24/18 08:00 09/24/18 12:00 09/24/18 16:00 Temperature 97.3 F L 97.6 F 97.7 F Pulse Rate 61 62 60 Respiratory Rate 18 18 Blood Pressure 122/60 117/58 L 124/60 Pulse Oximetry 96 98 09/24/18 19:30 09/25/18 00:00 09/25/18 04:00 Temperature 97.9 F 97.7 F 98.4 F Pulse Rate 66 70 63 Respiratory Rate 19 20 18 Blood Pressure 148/63 H 157/69 H 114/56 L Pulse Oximetry 98 98 98 Intake & Output 09/24/18 09/25/18 09/25/18 18:59 06:59 18:59 Intake Total 480 / 480 Balance 480 / 480 Intake: Oral 480 / 480 Other: Date of Last Bowel Movement 09/23/18 <Eko Annelise Pacheco U - 09/25/18 07:16> Narrative: - Constitutional no acute distress, average body habitus, cooperative - Routine HEENT Exam Head: Present: normocephalic, atraumatic ENT: Present: mucous membranes moist - Routine Respiratory Exam Present: CTA bilaterally. Absent: accessory muscle use, wheezes, crackles - Routine Cardiovascular Exam Present: RRR, S1, S2. 3/6 loud holosytolic murmur heard best in the aortic area - Routine Abdominal Exam Present: soft. Absent: tenderness, distended - Routine Neurological Exam Present: alert, moving all extremities - Detailed Neurological Exam: Coma Scale Eye Opening: Spontaneous Verbal Response: Oriented Motor Response: Obey commands Percy Coma Scale Total: 15 - Routine Psychiatric Exam Present: normal affect <Eko Annelise Pacheco U - 09/25/18 08:57> Assessment and Plan - Assessment (1) Xffes-yp-wvgvujq kidney injury Code(s): N17.9 - Acute kidney failure, unspecified; N18.9 - Chronic kidney disease, unspecified Status: Acute (2) Diabetes mellitus Code(s): E11.9 - Type 2 diabetes mellitus without complications Status: Acute (3) Hypertension Code(s): I10 - Essential (primary) hypertension Status: Acute (4) Cirrhosis of liver Code(s): K74.60 - Unspecified cirrhosis of liver Status: Chronic (5) Nutrition, metabolism, and development symptoms Code(s): R63.8 - Other symptoms and signs concerning food and fluid intake Status: Acute <Tamica Batres - 09/25/18 13:57> (1) Hnpxy-hh-hwitjqw kidney injury Code(s): N17.9 - Acute kidney failure, unspecified; N18.9 - Chronic kidney disease, unspecified Status: Acute Plan: she is having dialysis here in the hospital and tolerating this well. Reports prior baseline at GFR of 22. Improving. Oil Winterizer down to 2.22 from 2.82 on the previous day and GFR 23 today Kidney Biopsy showing Diabetic Nephropathy with Glomerulosclerosis. Has 90% interstitial sclerosis UA with hematuria and proteinuria Hypoalbuminemia Urine Na 113 Urine Osm 392 Complement levels normal MELE screen positive, titer mild at 1:40, speckled pattern Anti-dsDNA negative ANCA studies negative Anemia: Hgb stable around 9 on 09/23, asymptomatic Nephrology consulted, appreciate assistance Holding Bumex and Aldactone Strict I/O Address HTN as below Will benefit from outpatient addition of HEIDI-I or ARB by Nephrology when they deem it is appropriate Next HD Thursday (holiday schedule) Needs AVF (2) Diabetes mellitus Code(s): E11.9 - Type 2 diabetes mellitus without complications Status: Acute Plan: Known history of diabetes, takes insulin glargine 10 units at night BG at hospital target at the moment with SSI Continue Low-dose sliding scale Target BG 140-180 (3) Hypertension Code(s): I10 - Essential (primary) hypertension Status: Acute Plan: BP now much closer to goal (target for her < 140/90 given CKD) EKG showed sinus bradycardia, heart rate 53, no ST changes -Continuing home amlodipine (increased to 5 mg BID) -Continue Coreg to 3.125 PO BID instead of 6.25 daily (decreased due to bradycardia which has now resolved) -Continue Hydralazine 25 mg PO TID; if normotensive throughout the day today may discontinue on discharge (4) Cirrhosis of liver Code(s): K74.60 - Unspecified cirrhosis of liver Status: Chronic Plan: Known history of liver cirrhosis, known history of hepatitis C s/p treatment with antiviral Liver enzymes, bilirubin within normal limits -Monitor clinically, repeat LFTs as indicated -Per dialysis center request checked Hep profile (showed Hep C Ab only) -HCV RNA test pending; per pt she was treated to cure (5) Nutrition, metabolism, and development symptoms Code(s): R63.8 - Other symptoms and signs concerning food and fluid intake Status: Acute Plan: Encouraging p.o. intake Renal diet <Annelise Argueta - 09/25/18 10:05> - Assessment and Plan 4-year-old female with a history of liver cirrhosis, CKD, diabetes, hypertension presented to the emergency room with 1 day history of altered mental status. No focal deficits, CT head negative on admission. Found to have significant acute on chronic kidney injury. Also fluid overload with bilateral lower extremity edema and pleural effusions. Continuing diuretics on admission and consulting nephrology. Also found to be in hypertensive urgency on admission, improved with hydralazine. <Annelise Argueta - 09/25/18 08:57> Discussed Condition With: Patient and patient's nurse. <Annelise Argueta [facility] 09/25/18 08:57> Discharge Planning: Pending nephrology recommendations, she may need an AV fistula placed in the hospital or could be done outpatient. <Eko R3,Annelise U - 09/25/18 08:57> - Attending Attestation The exam, history, and the medical decision-making described in the above note were completed with the assistance of the resident physician. I reviewed and agree with the findings presented. I attest that I had a ldei-yk-onqk encounter with the patient on the same day, and personally performed and documented my assessment and findings in the medical record. Ms. Ellison is looking forward to her surgery tomorrow. She is in good spirits especially when I informed her that she could not eat the dinner brought in by her sister tanner as it was Whit. She ate almost nothing of her lunch. She will be n.p.o. after midnight. Hopefully after her surgery she will be ready to go home. <Tamica Batres M - 09/25/18 13:57> <Tamica Batres M - Last Filed: 09/25/18 13:57> (1) Mfruo-db-cgnnaai kidney injury Qualifiers: Acute renal failure type: unspecified Chronic kidney disease stage: stage 5, not on chronic dialysis Qualified Code(s): N17.9 - Acute kidney failure, unspecified; N18.5 - Chronic kidney disease, stage 5 (2) Diabetes mellitus Qualifiers: Diabetes mellitus type: type 2 Diabetes mellitus manager intermediate insulin use: with half-way use Diabetes mellitus complication status: with kidney complications Diabetes mellitus complication detail: with chronic kidney disease Chronic kidney disease stage: stage 5, not on chronic dialysis Qualified Code(s): E11.22 - Type 2 diabetes mellitus with diabetic chronic kidney disease; N18.5 - Chronic kidney disease, stage 5; Z79.4 - tank terminal gauger (current) use of insulin (3) Hypertension Qualifiers: Hypertension type: essential hypertension Qualified Code(s): I10 - Essential (primary) hypertension (4) Cirrhosis of liver Qualifiers: Hepatic cirrhosis type: other cirrhosis Qualified Code(s): K74.69 - Other cirrhosis of liver <Tamica Batres - Last Filed: 09/25/18 13:57> (1) Kqoln-fi-pilmnod kidney injury Qualifiers: Acute renal failure type: unspecified Chronic kidney disease stage: stage 5, not on chronic dialysis Qualified Code(s): N17.9 - Acute kidney failure, unspecified; N18.5 - Chronic kidney disease, stage 5 (2) Diabetes mellitus Qualifiers: Diabetes mellitus type: type 2 Diabetes mellitus manager intermediate insulin use: with half-way use Diabetes mellitus complication status: with kidney complications Diabetes mellitus complication detail: with chronic kidney disease Chronic kidney disease stage: stage 5, not on chronic dialysis Qualified Code(s): E11.22 - Type 2 diabetes mellitus with diabetic chronic kidney disease; N18.5 - Chronic kidney disease, stage 5; Z79.4 - custodial (current) use of insulin (3) Hypertension Qualifiers: Hypertension type: essential hypertension Qualified Code(s): I10 - Essential (primary) hypertension (4) Cirrhosis of liver Qualifiers: Hepatic cirrhosis type: other cirrhosis Qualified Code(s): K74.69 - Other cirrhosis of liver
[2018-09-25] MEDS: Senna/Docusate Sodium 8.6/50 MG Tablet PO SCH ×3 (08:25→21:07)
[2018-09-25] MEDS: hydrALAZINE 25 MG Tablet PO SCH ×3 (08:30→17:25)
--- NOTE | 2018-09-25 10:09 | P.CONVS ---
History of Present Illness Service: vascular Consult date: 09/25/18 Requesting Physician: Silas Forrest Reason for Consult: AVF placement Primary [facility] Provider: [facility] Chief Complaint: ESRD needs HD access History of Present Illness: 58 yo female with hep C, DM, HTN and new onset HD. RIGHT handed. No prior access attempts. Has R chest catheter. Rec'd HD yesterday (09/24). Review of Systems Constitutional: Denies chills, Denies fatigue, Denies fever(s) Cardiovascular: Denies chest pain Respiratory: Denies shortness of breath PMFSH - History History Provided By: Patient, Family Member - Medical History Medical History: Medical History (Last Reviewed 09/25/18 @ 10:06 by Pablo Kennedy MD) Anxiety Cirrhosis Depression Diabetes Heart murmur Hepatitis C Hypertension Renal insufficiency - Surgical History Surgical History: Surgical History (Last Reviewed 09/25/18 @ 10:06 by Pablo Kennedy MD) History of carpal tunnel release - Tobacco History Second Hand Smoke Exposure: No Smoking Status: Never smoker - Alcohol History How Often Do You Have a Drink Containing Alcohol: Never - Substance Use History Substance History: No History of Abuse - Substance Use Type Marijuana Last Used: on drug screen - Travel History Recent Travel in the [place] Within the Last 8 Weeks: Yes Recent Travel Out of the Country Within the Last 8 Weeks: No - Immunization History Tetanus Immunization: Unsure Hx Influenza Vaccine This Season: Yes Medications and Allergies Active Medications: Active Medications Acetaminophen (Tylenol) 650 mg PO UNSCH X1 PRN PRN Reason: SEE LABEL COMMENTS Al Hydroxide/Mg Hydroxide (Milk Of Raymond Wdae) 30 ml PO Q12H PRN PRN Reason: Mild Constipation Amlodipine Besylate (Norvasc) 5 mg PO BID [facility] Last Admin: 09/25/18 08:30 Dose: 5 mg Artificial Tears (Refresh Tears 0.5% Opth Drops) 1 drop EACH EYE Q4H PRN PRN Reason: DRY EYES Bisacodyl (Dulcolax Supp) 10 mg RECTAL DAILY PRN PRN Reason: SEVERE CONSITIPATION Bumetanide (Bumex) 1 mg PO BID [facility] Last Admin: 09/25/18 08:30 Dose: 1 mg Calcium Carbonate (Tums Chew) 500 mg CHEW Q2H PRN PRN Reason: ABDOMINAL PAIN Carvedilol (Coreg) 3.125 mg PO BID [facility] Last Admin: 09/25/18 08:30 Dose: 3.125 mg Clonidine HCl (Catapres) 0.1 mg PO UNSCH X1 PRN PRN Reason: SEE LABEL COMMENTS Dextrose (D50w Vial) 50 ml IV.PUSH UNSCH PRN PRN Reason: PER HYPOGLYCEMIA PROTOCOL Diphenhydramine HCl (Benadryl) 25 mg PO UNSCH PRN PRN Reason: SEE LABEL COMMENTS Epoetin Clay (Epogen Inj) 10,000 unit IV.PUSH UNSCH PRN PRN Reason: SEE LABEL COMMENTS Last Admin: 09/24/18 22:33 Dose: 10,000 unit Gelatin (Gelfoam 12 Mm/7 Mm Topical) 1 foam TOPICAL UNSCH PRN PRN Reason: help stop bleeding from site Gentamicin Sulfate (Gentamicin Inj) 20 mg OTHER WITH DIALYSIS PRN PRN Reason: Dwell Gentamycin Lock Last Admin: 09/24/18 22:34 Dose: 20 mg Glucagon (Glucagon Inj) 1 mg OTHER PRN PRN PRN Reason: for Hypoglycemia Protocol Heparin Sodium (Porcine) (Heparin Central Flush) 0 unit IV.FLUSH DAILY PRN PRN Reason: SEE DOSE INSTRUCTIONS Heparin Sodium (Porcine) (Heparin Inj) 0 units OTHER WITH DIALYSIS PRN PRN Reason: Dwell Heparin to Fill Catheter Last Admin: 09/24/18 22:34 Dose: 1,000 units Heparin Sodium (Porcine) (Heparin Inj) 8,000 units OTHER WITH DIALYSIS PRN PRN Reason: for machine prime Hydralazine HCl (Apresoline) 25 mg PO TID [facility] Last Admin: 09/25/18 08:30 Dose: 25 mg Sodium Chloride (Ns Inj) 500 mls @ 30 mls/hr IV.SIG .Q10H [facility] Cefazolin Sodium/Dextrose (Ancef 2 Gm Premix Inj) 2 gm in 50 mls @ 200 mls/hr IV.SIG FEED CRUSHER [facility] Vancomycin HCl 1,000 mg/ (Sodium Chloride) 250 mls @ 200 mls/hr IV.SIG FEED CRUSHER [facility] Last Infusion: 09/20/18 13:15 Dose: Infused Albumin Human (Flexbumin 25% Inj) 100 mls @ 60 mls/hr IV.SIG WITH DIALYSIS PRN PRN Reason: hypotension / volume replace Sodium Chloride (Ns Inj) 1,000 mls @ 0 mls/hr OTHER .Q0M PRN PRN Reason: for prime and rinse back Sodium Chloride (Ns Inj) 1,000 mls @ 200 mls/hr OTHER .Q5H PRN PRN Reason: for dialyzer flush PRN Sodium Chloride (Ns Inj) 1,000 mls @ 0 mls/hr IV.CONT .Q0M PRN PRN Reason: hypotension / volume replace Insulin Aspart (Novolog Insulin Correctional Sugar Inj) 0 unit SQ ACHS [facility]; Protocol Last Admin: 09/25/18 00:16 Dose: Not Given Lactulose (Lactulose Liq) 30 ml PO DAILY PRN PRN Reason: SEVERE CONSITIPATION Mannitol (Mannitol Inj) 12.5 gm IV.PUSH UNSCH PRN PRN Reason: hypotension / volume replace Mupirocin (Bactroban 2% Oint) 1 applicatio TOPICAL BID [facility] Last Admin: 09/25/18 08:28 Dose: Not Given Nitroglycerin (Nitrostat Sl) 0.4 mg SL Q5M PRN PRN Reason: CHEST PAIN Ondansetron HCl (Zofran Inj) 4 mg IV.PUSH Q6H PRN PRN Reason: NAUSEA OR VOMITING Ondansetron HCl (Zofran Inj) 4 mg IV.PUSH UNSCH X1 PRN PRN Reason: NAUSEA OR VOMITING Senna/Docusate Sodium (Marissa-Colace) 1 tab PO BID [facility] Last Admin: 09/25/18 08:31 Dose: Not Given Sennosides (Senokot) 17.2 mg PO Q12H PRN PRN Reason: Moderate Constipation Skin Test Antigens (Skin Test Result) 1 each OTHER Q24H [facility] Stop: 09/25/18 11:01 Last Admin: 09/24/18 11:00 Dose: 1 each Sodium Chloride (Ns Flush) 2 ml IV.FLUSH BID [facility] Last Admin: 09/25/18 08:25 Dose: Not Given Sodium Chloride (Ns Flush) 2 ml IV.FLUSH PRN PRN PRN Reason: FLUSH AFTER USING IV ACCESS Sodium Chloride (Ns Flush) 5 ml IV.FLUSH UNSCH PRN PRN Reason: flush each lumen during HD Allergies Allergy/AdvReac Type Severity Reaction Status Date / Time codeine Allergy Severe Itching Verified 09/15/18 15:46 Home Medications Medication Instructions Recorded Confirmed Type amlodipine 5 mg PO DAILY 09/15/18 09/15/18 History bumetanide 1 mg PO BID PRN 09/15/18 09/15/18 History carboxymethylcellulose sodium 1 drp OPHTHALMIC (EYE) Q4-6H PRN 09/15/18 History carvedilol 6.25 mg PO BID 09/15/18 09/15/18 History insulin glargine 10 unit SUBCUT HS 09/15/18 09/15/18 History spironolactone 25 mg PO BID 09/15/18 09/15/18 History Physical Exam Vital Signs / I&O: Vital Signs 09/24/18 12:00 09/24/18 16:00 09/24/18 19:30 Temperature 97.6 F 97.7 F 97.9 F Pulse Rate 62 60 66 Respiratory Rate 18 18 19 Blood Pressure 117/58 L 124/60 148/63 H Pulse Oximetry 96 98 98 09/25/18 00:00 09/25/18 04:00 09/25/18 08:00 Temperature 97.7 F 98.4 F 97.8 F Pulse Rate 70 63 65 Respiratory Rate 20 18 14 Blood Pressure 157/69 H 114/56 L 120/58 L Pulse Oximetry 98 98 96 Intake & Output 09/24/18 09/25/18 09/25/18 18:59 06:59 18:59 Intake Total 480 / 480 Balance 480 / 480 Intake: Oral 480 / 480 Other: Date of Last Bowel Movement 09/23/18 Neuro: alert, oriented, ambulating in room no distress HEENT: NC/AT Neck: no JVD Heart: reg rate Lungs: clear Vascular: palp UE pulses Extremities: L UE with AC skin furuncle without surrounding erythema Laboratory Results - last 24 hr 09/24/18 09/24/18 09/25/18 12:16 17:05 00:12 Sodium Potassium Chloride Carbon Dioxide Anion Gap BUN Creatinine Estimated GFR POC Glucose 147 H 121 H 84 Random Glucose Calcium Calcium Adj for Albumin Phosphorus Albumin 09/25/18 03:44 Sodium 137 Potassium 4.5 D Chloride 102 Carbon Dioxide 28.7 Anion Gap 6 BUN 11 Creatinine 2.22 H Estimated GFR 23 L POC Glucose Random Glucose 83 Calcium 7.3 L* Calcium Adj for Albumin 8.7 Phosphorus 1.7 L Albumin 2.3 L Assessment and Plan - Assessment (1) ESRD (end stage renal disease) Code(s): N18.6 - End stage renal disease Status: Chronic - Plan 58 yo female with new onset HD dependence. Discussed options of AVF vs AVG in LEFT arm. Will proceed to OR tomorrow (09/26) and utilize intra-op ultrasound to determine best configuration vs prosthetic. Pt understands risks and wishes to proceed. Pablo Kennedy MD FACS FSVS RPVI medical insurance biller [facility] - Heart and Vascular Surgery at [facility] [phone]
--- NOTE | 2018-09-25 17:58 | P.PNNP ---
Subjective Interval history: Patient seen in the afternoon, alert, no SOB. Physical Exam Vital signs: Vital Signs 09/24/18 19:30 09/25/18 00:00 09/25/18 04:00 Temperature 97.9 F 97.7 F 98.4 F Pulse Rate 66 70 63 Respiratory Rate 19 20 18 Blood Pressure 148/63 H 157/69 H 114/56 L Pulse Oximetry 98 98 98 09/25/18 08:00 09/25/18 12:00 09/25/18 16:00 Temperature 97.8 F 97.8 F 97.8 F Pulse Rate 65 65 70 Respiratory Rate 14 16 16 Blood Pressure 120/58 L 123/59 L 114/56 L Pulse Oximetry 96 97 97 Intake & Output 09/24/18 09/25/18 09/25/18 18:59 06:59 18:59 Intake Total 480 / 480 Balance 480 / 480 Intake: Oral 480 / 480 Other: Date of Last Bowel Movement 09/23/18 09/24/18 Narrative: - Constitutional no acute distress, average body habitus, cooperative - Routine HEENT Exam Head: Present: normocephalic, atraumatic ENT: Present: mucous membranes moist - Routine Respiratory Exam Present: CTA bilaterally. Absent: accessory muscle use, wheezes, crackles - Routine Cardiovascular Exam Present: RRR, S1, S2. 3/6 loud holosytolic murmur heard best in the aortic area - Routine Abdominal Exam Present: soft. Absent: tenderness, distended - Routine Neurological Exam Present: alert, moving all extremities - Detailed Neurological Exam: Coma Scale Eye Opening: Spontaneous Verbal Response: Oriented Motor Response: Obey commands [place] Coma Scale Total: 15 - Routine Psychiatric Exam Present: normal affect Assessment and Plan - Assessment (1) Llvtr-hw-twmkwkb kidney injury Code(s): N17.9 - Acute kidney failure, unspecified; N18.9 - Chronic kidney disease, unspecified Status: Acute Qualifiers: Acute renal failure type: unspecified Chronic kidney disease stage: stage 5 , not on chronic dialysis Qualified Code(s): N17.9 - Acute kidney failure, unspecified; N18.5 - Chronic kidney disease, stage 5 Plan: The Kidney Biopsy showing Diabetic Nephropathy with Glomerulosclerosis. Has 90% interstitial sclerosis. Apparent ESRD now, has tunneled catheter in place outpatient dialysis arrangements in place Consulted social sciences lecturer for arrangements for dialysis placement. Need AVF, seen by Vascular. HD was done yesterday late at night. (2) Diabetes mellitus Code(s): E11.9 - Type 2 diabetes mellitus without complications Status: Acute Qualifiers: Diabetes mellitus type: type 2 Diabetes mellitus laundry manager insulin use: with halfway use Diabetes mellitus complication status: with kidney complications Diabetes mellitus complication detail: with chronic kidney disease Chronic kidney disease stage: stage 5, not on chronic dialysis Qualified Code(s): E11.22 - Type 2 diabetes mellitus with diabetic chronic kidney disease; N18.5 - Chronic kidney disease, stage 5; Z79.4 - group home ( current) use of insulin Plan: Maintain blood sugars between 140 mg/dl to 180 mg/dl while hospitalized. Has SS available. Well controlled. (3) Hypertension Code(s): I10 - Essential (primary) hypertension Status: Acute Qualifiers: Hypertension type: essential hypertension Qualified Code(s): I10 - Essential (primary) hypertension Plan: Better controlled. On amlodipine, hydralazine, and coreg.
[2018-09-26] MEDS ORDERED: Chlorhexidine Gluconate 2% 1 Pack (2 Cloths) TOPICAL ONE (03:57)
[2018-09-26] MEDS ORDERED: Metoprolol Tartrate 25 MG Tablet PO ONE (03:57)
[2018-09-26] MEDS ORDERED: Sodium Chlor 0.9% Inj 500 ML IV.SIG SCH (04:00)
[2018-09-26] MEDS ORDERED: Thrombin Topical 20,000 UNIT Spray Kit TOPICAL ONE (06:46)
[2018-09-26] MEDS ORDERED: Heparin 10,000 UNITS/10 ML Vial (for IV use) ONE (06:46)
[2018-09-26] MEDS ORDERED: Protamine Sulfate Inj 50 MG/5 ML Vial ONE (06:46)
[2018-09-26] MEDS ORDERED: Bupivacaine PF 0.5% Inj 10 ML Vial ONE (06:46)
[2018-09-26] MEDS ORDERED: Heparin/NS PF Inj 500 ML ONE (06:47)
[2018-09-26] MEDS: amLODIPine 5 MG Tablet PO SCH ×2 (08:20→21:34)
[2018-09-26] MEDS: hydrALAZINE 25 MG Tablet PO SCH ×3 (08:20→17:39)
[2018-09-26] MEDS: Insulin NovoLOG Aspart Correctional Sugar Inj SQ SCH ×4 (08:20→21:46)
[2018-09-26] MEDS: Senna/Docusate Sodium 8.6/50 MG Tablet PO SCH ×2 (08:21→21:35)
--- NOTE | 2018-09-26 09:00 | P.PNFP ---
Subjective Interval history: 58-year-old female with a history of liver cirrhosis, CKD, diabetes, hypertension admitted with 1 day history of altered mental status and also found to have acute on chronic renal injury. Altered mental status resolved quickly after admission, but kidney function slowly declined prompting continued hospital stay for dialysis. Today she feels well. No CP/SOB, abdominal pain, fever, or confusion. <Villa Samuel Pacheco S - 09/26/18 09:14> Results - Labs Result diagrams: 09/23/18 09:02 09/26/18 10:05 <Tamica Batres - 09/26/18 13:41> Abnormal lab results 09/25/18 Range/Units 16:53 POC Glucose 151 H (68-110) mg/dl BMP 09/26/18 10:05 Potassium 3.6 D <Tamica Batres - 09/26/18 13:41> Abnormal lab results 09/25/18 09/25/18 Range/Units 11:59 16:53 POC Glucose 140 H 151 H (68-110) mg/dl <Allen PachecoSamuel S - 09/26/18 09:00> Physical Exam Vital signs: Vital Signs 09/25/18 16:00 09/25/18 21:00 09/25/18 23:01 Temperature 97.8 F 98.3 F 97.9 F Pulse Rate 70 69 70 Respiratory Rate 16 18 18 Blood Pressure 114/56 L 131/60 106/53 L Pulse Oximetry 97 98 98 09/26/18 05:22 09/26/18 08:00 09/26/18 12:00 Temperature 98.2 F 98.3 F 97.9 F Pulse Rate 66 67 65 Respiratory Rate 18 14 16 Blood Pressure 120/66 130/58 L 121/57 L Pulse Oximetry 97 95 96 Intake & Output 09/25/18 09/26/18 09/26/18 18:59 06:59 18:59 Intake Total 720 / 720 720 / 720 Balance 720 / 720 720 / 720 Weight 71 kg Intake: Oral 720 / 720 720 / 720 Other: # Voids 3 1 Date of Last Bowel Movement 09/24/18 09/25/18 09/25/18 # Bowel Movements 1 <Tamica Batres - 09/26/18 13:41> Vital Signs 09/25/18 12:00 09/25/18 16:00 09/25/18 21:00 Temperature 97.8 F 97.8 F 98.3 F Pulse Rate 65 70 69 Respiratory Rate 16 16 18 Blood Pressure 123/59 L 114/56 L 131/60 Pulse Oximetry 97 97 98 09/25/18 23:01 09/26/18 05:22 Temperature 97.9 F 98.2 F Pulse Rate 70 66 Respiratory Rate 18 18 Blood Pressure 106/53 L 120/66 Pulse Oximetry 98 97 Intake & Output 09/25/18 09/26/18 09/26/18 18:59 06:59 18:59 Intake Total 720 / 720 720 / 720 Balance 720 / 720 720 / 720 Weight 71 kg Intake: Oral 720 / 720 720 / 720 Other: # Voids 3 1 Date of Last Bowel Movement 09/24/18 09/25/18 09/25/18 # Bowel Movements 1 <Villa R3,Samuel S - 09/26/18 09:00> - Constitutional no acute distress, average body habitus, cooperative <Villa R3,Samuel S - 09:00> - Routine HEENT Exam Head: Present: normocephalic <Villa R3,Samuel S - 09/26/18 09:00> ENT: Present: mucous membranes moist <Villa R3,Samuel S - 09/26/18 09:00> - Routine Respiratory Exam Present: CTA bilaterally. Absent: accessory muscle use, wheezes, crackles < Villa R3,Samuel S - 09/26/18 09:00> - Routine Cardiovascular Exam Present: RRR, S1, S2. Absent: murmur <Villa R3,Samuel S - 09/26/18 09:00> - Routine Extremities Exam Absent: cyanosis, edema <Villa R3,Samuel S - 09/26/18 09:00> - Routine Neurological Exam Present: alert, moving all extremities, normal speech. Absent: altered mental status <Villa R3,Samuel S - 09/26/18 09:00> - Detailed Neurological Exam: Coma Scale Eye Opening: Spontaneous <Villa R3,Samuel S - 09/26/18 09:00> Verbal Response: Oriented <Villa R3,Samuel S - 09/26/18 09:00> Motor Response: Obey commands <Villa R3,Samuel S - 09/26/18 09:00> [place] Coma Scale Total: 15 <Samuel Welsh - 09/26/18 09:14> - Routine Psychiatric Exam Present: normal affect <Samuel Welsh - 09/26/18 09:00> Assessment and Plan - Assessment (1) Fjmme-iw-ndlwkyh kidney injury Code(s): N17.9 - Acute kidney failure, unspecified; N18.9 - Chronic kidney disease, unspecified Status: Acute (2) Diabetes mellitus Code(s): E11.9 - Type 2 diabetes mellitus without complications Status: Acute (3) Hypertension Code(s): I10 - Essential (primary) hypertension Status: Acute (4) Cirrhosis of liver Code(s): K74.60 - Unspecified cirrhosis of liver Status: Chronic (5) Nutrition, metabolism, and development symptoms Code(s): R63.8 - Other symptoms and signs concerning food and fluid intake Status: Acute <Tamica Batres - 09/26/18 13:41> (1) Lvema-mc-whpxgzt kidney injury Code(s): N17.9 - Acute kidney failure, unspecified; N18.9 - Chronic kidney disease, unspecified Status: Acute Plan: she is having dialysis here in the hospital and tolerating this well. Reports prior baseline at GFR of 22. Improving. 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 Has 90% interstitial sclerosis UA with hematuria and proteinuria Hypoalbuminemia Urine Na 113 Urine Osm 392 Complement levels normal MELE screen positive, titer mild at 1:40, speckled pattern Anti-dsDNA negative ANCA studies negative Anemia: Hgb stable around 9 on 09/23, asymptomatic Nephrology consulted, appreciate assistance Holding Bumex and Aldactone Strict I/O Address HTN as below Will benefit from outpatient addition of HEIDI-I or ARB by Nephrology when they deem it is appropriate Next HD (holiday schedule) Needs AVF Vascular surgery consulted, appreciate assistance To OR today 09/26 for AVF/graft placement (2) Diabetes mellitus Code(s): E11.9 - Type 2 diabetes mellitus without complications Status: Acute Plan: Known history of diabetes, takes insulin glargine 10 units at night BG at hospital target at the moment with SSI Continue Low-dose sliding scale Target BG 140-180 (3) Hypertension Code(s): I10 - Essential (primary) hypertension Status: Acute Plan: BP now much closer to goal (target for her < 140/90 given CKD) EKG showed sinus bradycardia, heart rate 53, no ST changes -Continuing home amlodipine (increased to 5 mg BID) -Continue Coreg to 3.125 PO BID instead of 6.25 daily (decreased due to bradycardia which has now resolved) -Continue Hydralazine 25 mg PO TID (4) Cirrhosis of liver Code(s): K74.60 - Unspecified cirrhosis of liver Status: Chronic Plan: Known history of liver cirrhosis, known history of hepatitis C s/p treatment with antiviral Liver enzymes, bilirubin within normal limits -Monitor clinically, repeat LFTs as indicated -Per dialysis center request checked Hep profile (showed Hep C Ab only) -HCV RNA test pending; per pt she was treated to cure (5) Nutrition, metabolism, and development symptoms Code(s): R63.8 - Other symptoms and signs concerning food and fluid intake Status: Acute Plan: Encouraging p.o. intake Renal diet <Samuel Welsh S - 09/26/18 09:13> - Assessment and Plan Discharge Planning: Pending AVF/graft placement, setting up outpatient dialysis. Appreciate assistance of Nephrology team and CM in coordinating care. Also will need home health PT on discharge, referral placed, appreciate CM assistance with this as well. <Samuel Welsh S - 09/26/18 09:14> - Attending Attestation The exam, history, and the medical decision-making described in the above note were completed with the assistance of the resident physician. I reviewed and agree with the findings presented. I attest that I had a [id number] encounter with the patient on the same day, and personally performed and documented my assessment and findings in the medical record. hopefully she can be set up with dialysis as an outpt and go home very soon <Tamica Batres M - 09/26/18 13:41> <Allen PachecoSamuel S - Last Filed: 09/26/18 09:13> (1) Qxilc-bn-wddvhgp kidney injury Qualifiers: Acute renal failure type: unspecified Chronic kidney disease stage: stage 5, not on chronic dialysis Qualified Code(s): N17.9 - Acute kidney failure, unspecified; N18.5 - Chronic kidney disease, stage 5 (2) Diabetes mellitus Qualifiers: Diabetes mellitus type: type 2 Diabetes mellitus termination clerk insulin use: with termination clerk use Diabetes mellitus complication status: with kidney complications Diabetes mellitus complication detail: with chronic kidney disease Chronic kidney disease stage: stage 5, not on chronic dialysis Qualified Code(s): E11.22 - Type 2 diabetes mellitus with diabetic chronic kidney disease; N18.5 - Chronic kidney disease, stage 5; Z79.4 - adjunct faculty for medical terminology (current) use of insulin (3) Hypertension Qualifiers: Hypertension type: essential hypertension Qualified Code(s): I10 - Essential (primary) hypertension (4) Cirrhosis of liver Qualifiers: Hepatic cirrhosis type: other cirrhosis Qualified Code(s): K74.69 - Other cirrhosis of liver <Tamica Batres M - Last Filed: 09/26/18 13:41> (1) Njgsk-uw-aoehjyv kidney injury Qualifiers: Acute renal failure type: unspecified Chronic kidney disease stage: stage 5, not on chronic dialysis Qualified Code(s): N17.9 - Acute kidney failure, unspecified; N18.5 - Chronic kidney disease, stage 5 (2) Diabetes mellitus Qualifiers: Diabetes mellitus type: type 2 Diabetes mellitus termination clerk insulin use: with termination clerk use Diabetes mellitus complication status: with kidney complications Diabetes mellitus complication detail: with chronic kidney disease Chronic kidney disease stage: stage 5, not on chronic dialysis Qualified Code(s): E11.22 - Type 2 diabetes mellitus with diabetic chronic kidney disease; N18.5 - Chronic kidney disease, stage 5; Z79.4 - adjunct faculty for medical terminology (current) use of insulin (3) Hypertension Qualifiers: Hypertension type: essential hypertension Qualified Code(s): I10 - Essential (primary) hypertension (4) Cirrhosis of liver Qualifiers: Hepatic cirrhosis type: other cirrhosis Qualified Code(s): K74.69 - Other cirrhosis of liver <Samuel Welsh S - Last Filed: 09/26/18 09:13> (1) Mhxko-oy-shtrogp kidney injury Qualifiers: Acute renal failure type: unspecified Chronic kidney disease stage: stage 5, not on chronic dialysis Qualified Code(s): N17.9 - Acute kidney failure, unspecified; N18.5 - Chronic kidney disease, stage 5 (2) Diabetes mellitus Qualifiers: Diabetes mellitus type: type 2 Diabetes mellitus chcf insulin use: with chcf use Diabetes mellitus complication status: with kidney complications Diabetes mellitus complication detail: with chronic kidney disease Chronic kidney disease stage: stage 5, not on chronic dialysis Qualified Code(s): E11.22 - Type 2 diabetes mellitus with diabetic chronic kidney disease; N18.5 - Chronic kidney disease, stage 5; Z79.4 - adjunct faculty for medical terminology (current) use of insulin (3) Hypertension Qualifiers: Hypertension type: essential hypertension Qualified Code(s): I10 - Essential (primary) hypertension (4) Cirrhosis of liver Qualifiers: Hepatic cirrhosis type: other cirrhosis Qualified Code(s): K74.69 - Other cirrhosis of liver <Tamica Batres M - Last Filed: 09/26/18 13:41> (1) Lypvz-wa-cydqfii kidney injury Qualifiers: Acute renal failure type: unspecified Chronic kidney disease stage: stage 5, not on chronic dialysis Qualified Code(s): N17.9 - Acute kidney failure, unspecified; N18.5 - Chronic kidney disease, stage 5 (2) Diabetes mellitus Qualifiers: Diabetes mellitus type: type 2 Diabetes mellitus termination clerk insulin use: with chcf use Diabetes mellitus complication status: with kidney complications Diabetes mellitus complication detail: with chronic kidney disease Chronic kidney disease stage: stage 5, not on chronic dialysis Qualified Code(s): E11.22 - Type 2 diabetes mellitus with diabetic chronic kidney disease; N18.5 - Chronic kidney disease, stage 5; Z79.4 - adjunct faculty for medical terminology (current) use of insulin (3) Hypertension Qualifiers: Hypertension type: essential hypertension Qualified Code(s): I10 - Essential (primary) hypertension (4) Cirrhosis of liver Qualifiers: Hepatic cirrhosis type: other cirrhosis Qualified Code(s): K74.69 - Other cirrhosis of liver
[2018-09-26] MEDS ORDERED: Iohexol 300 MG/ML 50 ML Vial (for Rad Diag) IVCONTRAST ONE ×2 (13:37→14:15)
--- NOTE | 2018-09-26 14:40 | P.PNVS ---
- Pre-operative Note Planned Procedure: LEFT arm AVF Interval History: No changes since I saw her yesterday. K 3.6 Labs: WBC 5.8 th/mm3 (4.0-11.0) 09/23/18 09:02 RBC 2.62 mil/mm3 (4.00-5.30) L 09/23/18 09:02 Hgb 9.1 gm/dL (11.6-15.3) L 09/23/18 09:02 Hct 24.7 % (35.0-46.0) L 09/23/18 09:02 MCV 94.5 fL (80.0-100.0) 09/23/18 09:02 MCH 34.6 pg (27.0-34.0) H 09/23/18 09:02 MCHC 36.6 % (32.0-36.0) H 09/23/18 09:02 RDW 15.9 % (11.6-17.2) 09/23/18 09:02 Plt Count 171 th/mm3 (150-450) 09/23/18 09:02 MPV 8.5 fL (7.0-11.0) 09/23/18 09:02 Hematology Comments 09/18/18 06:22 INR 1.1 Ratio 09/15/18 16:05 Sodium 137 meq/L (136-145) 09/25/18 03:44 Potassium 3.6 meq/L (3.5-5.1) D 09/26/18 10:05 Chloride 102 meq/L (98-107) 09/25/18 03:44 Carbon Dioxide 28.7 meq/L (21.0-32.0) 09/25/18 03:44 Anion Gap 6 meq/L (5-15) 09/25/18 03:44 BUN 11 mg/dL (7-18) 09/25/18 03:44 Random Glucose 83 mg/dL (74-106) 09/25/18 03:44 Calcium 7.3 mg/dL (8.5-10.1) L* 09/25/18 03:44 Imaging: ITS Impressions Head CT 09/15/18 15:59 CONCLUSION: Unremarkable study. Chest X-Ray 09/15/18 16:01 CONCLUSION: Small left pleural effusion not present previously with slight consolidation and/or compressive collapse left lung base medially. Chest CT 09/15/18 17:00 CONCLUSION: 1. Bilateral pleural effusions worse on the left with slight left lung base compressive collapse. 2. Cholelithiasis. 3. Cirrhotic liver with moderate amount of ascites upper abdomen. Abdomen/Bladder Ultrasound 09/16/18 00:00 CONCLUSION: 1. Cholelithiasis and ascites. Catheter Placement 09/20/18 00:00 CONCLUSION: 1. Uncomplicated line placement as above. Renal Biopsy CT 09/20/18 09:13 CONCLUSION: 1. Uncomplicated CT guided right renal biopsy for function. Upper Extremity Ultrasound 09/22/18 00:00 CONCLUSION: 1. Venous mapping was performed as described above. 2. Nonocclusive thrombus is noted within the left cephalic vein in the upper arm. Venous Doppler Study 09/22/18 00:00 CONCLUSION: 1. Nonocclusive thrombus within the left cephalic vein in the upper arm. 2. No evidence of deep venous thrombosis within the right upper extremity. Orders: NPO Vanc 1g IV OCTOR Post-operative Destination: PACU Operative site marked: Yes Consent: Informed consent has been obtained from Nita Ellison. I have explained the procedure in detail and discussed the risks, benefits, and potential complications. All questions have been answered. Patient Contact Information: Sister [phone]
--- NOTE | 2018-09-26 15:49 | P.OP ---
- Preoperative Diagnosis (1) ESRD (end stage renal disease) - Postoperative Diagnosis (1) ESRD (end stage renal disease) Date of procedure: 09/26/18 Procedure: LEFT brachiocephalic AVF Implants: none Anesthesia: GETA Surgeon: Pablo Kennedy MD Hardness Inspector: Pranay Grande Estimated blood loss (mL): 10 IV fluids (mL): 250 Pathology: none sent Operation and Findings: slightly sclerotic vein, but nice thrill at end of case palpable radial pulse
--- NOTE | 2018-09-26 16:08 | MP ---
cc: Pablo Kennedy MD DATE OF OPERATION: 09/26/2018 PREOPERATIVE DIAGNOSIS: End-stage renal disease, needs hemodialysis access. POSTOPERATIVE DIAGNOSIS: End-stage renal disease, needs hemodialysis access. PROCEDURE: Left brachiocephalic arteriovenous fistula. FILM PRINTER SURGEON: Pranay Grande. ANESTHESIA: General. INDICATIONS FOR PROCEDURE: The patient is a 58-year-old lady who has new onset end-stage renal disease. She is right-handed and has a left marginal left cephalic vein by duplex. Intraoperatively it was found that the cephalic vein was somewhat sclerotic, but was a reasonable size and a nice thrill was obtained at the end. DESCRIPTION OF PROCEDURE: Informed consent was obtained from the patient, she was taken to the operating room and placed supine on the operating table. An appropriate timeout was taken to ensure the patient's identity, operative site and planned procedure. The administration of 1 gram of vancomycin was initiated prior to skin incision and will be discontinued after single preoperative dose. Vancomycin was chosen because the patient has end-stage renal disease. Everyone in the room agreed. Then, we proceeded. Left arm was prepped and draped and a transverse incision was made at the antecubitum and carried down through subcutaneous tissue with electrocautery and was identified and dissected free for several centimeters. It was marked for orientation, clamped with a right angle distally and transected. The distal end was oversewn with 3-0 silk suture. The brachial artery was identified in the medial aspect of the incision and dissected free for several centimeters. The patient was systemically heparinized with 3000 units of IV heparin. Proximal and distal control of the brachial artery was obtained with fundal clamps and a longitudinal arteriotomy was made with an 11 blade, extended with Delbert scissors. The vein was spatulated and sewn end-to-side with running 6-0 Prolene suture. At the completion, it was flushed, noted to be hemostatic. There was a nice thrill in the fistula and a palpable pulse in the wrist. The heparin was reversed with protamine. The wound was infiltrated with Marcaine, made hemostatic and closed with 2-0 Polysorb, 3-0 Polysorb and 4-0 Monocryl. I was present, scrubbed, and performed the paulson and critical portions. There were no complications. Sponge and needle counts were correct at the end of the case. MD Harrison Richardson , 03:53 PM , 04:01 PM [facility]ITAL[facility]
[2018-09-26] MEDS ORDERED: fentaNYL Citrate Inj 100 MCG/2 ML Ampul ONE (16:18)
--- NOTE | 2018-09-26 20:53 | P.PNNP ---
Subjective Interval history: Patient seen in the afternoon, alert, no SOB. Physical Exam Vital signs: Vital Signs 09/25/18 21:00 09/25/18 23:01 09/26/18 05:22 Temperature 98.3 F 97.9 F 98.2 F Pulse Rate 69 70 66 Respiratory Rate 18 18 18 Blood Pressure 131/60 106/53 L 120/66 Pulse Oximetry 98 98 97 09/26/18 08:00 09/26/18 12:00 09/26/18 16:08 Temperature 98.3 F 97.9 F 97.5 F L Pulse Rate 67 65 74 Respiratory Rate 14 16 16 Blood Pressure 130/58 L 121/57 L 139/64 Pulse Oximetry 95 96 100 09/26/18 16:15 09/26/18 16:30 09/26/18 16:45 Temperature 97.5 F L Pulse Rate 72 70 68 Respiratory Rate 14 12 11 L Blood Pressure 137/63 126/61 117/58 L Pulse Oximetry 100 97 98 09/26/18 17:00 09/26/18 17:30 09/26/18 19:10 Temperature 97.3 F L 97.2 F L Pulse Rate 69 65 71 Respiratory Rate 14 14 18 Blood Pressure 126/60 136/61 124/60 Pulse Oximetry 97 95 95 Intake & Output 09/26/18 09/26/18 09/27/18 06:59 18:59 06:59 Intake Total 720 / 720 250 / 250 Output Total 10 / 10 Balance 720 / 720 240 / 240 Weight 71 kg Intake: Oral 720 / 720 Anesthesia Amount 250 / 250 Output: Estimated Blood Loss 10 / 10 Other: # Voids 1 Date of Last Bowel Movement 09/25/18 09/25/18 Narrative: - Constitutional no acute distress, average body habitus, cooperative - Routine HEENT Exam Head: Present: normocephalic, atraumatic ENT: Present: mucous membranes moist - Routine Respiratory Exam Present: CTA bilaterally. Absent: accessory muscle use, wheezes, crackles - Routine Cardiovascular Exam Present: RRR, S1, S2. 3/6 loud holosytolic murmur heard best in the aortic area - Routine Abdominal Exam Present: soft. Absent: tenderness, distended - Routine Neurological Exam Present: alert, moving all extremities - Detailed Neurological Exam: Coma Scale Eye Opening: Spontaneous Verbal Response: Oriented Motor Response: Obey commands [place] Coma Scale Total: 15 - Routine Psychiatric Exam Present: normal affect Assessment and Plan - Assessment (1) Toyty-jy-optojgq kidney injury Code(s): N17.9 - Acute kidney failure, unspecified; N18.9 - Chronic kidney disease, unspecified Status: Acute Qualifiers: Acute renal failure type: unspecified Chronic kidney disease stage: stage 5 , not on chronic dialysis Qualified Code(s): N17.9 - Acute kidney failure, unspecified; N18.5 - Chronic kidney disease, stage 5 Plan: The Kidney Biopsy showing Diabetic Nephropathy with Glomerulosclerosis. Has 90% interstitial sclerosis. Apparent ESRD now, has tunneled catheter in place outpatient dialysis arrangements in place Consulted social work assistant for arrangements for dialysis placement. seen by Vascular, for AVF today. HD was done on Monday night. Will hold HD today as AVF surgery will be done late. HD tomorrow. (2) Diabetes mellitus Code(s): E11.9 - Type 2 diabetes mellitus without complications Status: Acute Qualifiers: Diabetes mellitus type: type 2 Diabetes mellitus terminal press operator insulin use: with half-way use Diabetes mellitus complication status: with kidney complications Diabetes mellitus complication detail: with chronic kidney disease Chronic kidney disease stage: stage 5, not on chronic dialysis Qualified Code(s): E11.22 - Type 2 diabetes mellitus with diabetic chronic kidney disease; N18.5 - Chronic kidney disease, stage 5; Z79.4 - intermodal dispatcher ( current) use of insulin Plan: Maintain blood sugars between 140 mg/dl to 180 mg/dl while hospitalized. Has SS available. Well controlled. (3) Hypertension Code(s): I10 - Essential (primary) hypertension Status: Acute Qualifiers: Hypertension type: essential hypertension Qualified Code(s): I10 - Essential (primary) hypertension Plan: Better controlled. On amlodipine, hydralazine, and coreg.
[2018-09-27 05:16] LABS: Calcium 7.5 mg/dL (8.5-10.1); Carbon Dioxide 22.2 meq/L (21.0-32.0); Potassium 3.9 meq/L (3.5-5.1)
--- NOTE | 2018-09-27 07:30 | P.PNVS ---
Subjective Post Op Day #: 1 Procedure: L BC AVF Subjective/Hospital Course: no hand complaints doing well incision slightly numb Objective Vital Signs / I&O: Vital Signs 09/26/18 08:00 09/26/18 12:00 09/26/18 16:08 Temperature 98.3 F 97.9 F 97.5 F L Pulse Rate 67 65 74 Respiratory Rate 14 16 16 Blood Pressure 130/58 L 121/57 L 139/64 Pulse Oximetry 95 96 100 09/26/18 16:15 09/26/18 16:30 09/26/18 16:45 Temperature 97.5 F L Pulse Rate 72 70 68 Respiratory Rate 14 12 11 L Blood Pressure 137/63 126/61 117/58 L Pulse Oximetry 100 97 98 09/26/18 17:00 09/26/18 17:30 09/26/18 19:10 Temperature 97.3 F L 97.2 F L Pulse Rate 69 65 71 Respiratory Rate 14 14 18 Blood Pressure 126/60 136/61 124/60 Pulse Oximetry 97 95 95 09/26/18 23:30 09/27/18 04:10 Temperature 97.6 F 97.2 F L Pulse Rate 73 75 Respiratory Rate 18 19 Blood Pressure 128/58 L 149/67 H Pulse Oximetry 97 96 Intake & Output 09/26/18 09/27/18 09/27/18 18:59 06:59 18:59 Intake Total 250 / 250 1200 / 1200 Output Total 10 / 10 Balance 240 / 240 1200 / 1200 Weight 71 kg 71 kg Intake: Oral 1200 / 1200 Anesthesia Amount 250 / 250 Output: Estimated Blood Loss 10 / 10 Other: # Voids 3 Date of Last Bowel Movement 09/25/18 09/26/18 # Bowel Movements 0 Exam: L AC incision without erythema audible bruit hand ok Laboratory Results - last 24 hr 09/26/18 09/26/18 09/26/18 07:43 10:05 11:12 Sodium Potassium 3.6 D Chloride Carbon Dioxide Anion Gap BUN Creatinine Estimated GFR POC Glucose 88 82 Random Glucose Calcium 09/26/18 09/26/18 09/26/18 16:20 17:34 21:38 Sodium Potassium Chloride Carbon Dioxide Anion Gap BUN Creatinine Estimated GFR POC Glucose 86 96 267 H Random Glucose Calcium 09/27/18 04:19 Sodium 134 L Potassium 3.9 Chloride 101 Carbon Dioxide 22.2 Anion Gap 11 BUN 26 H Creatinine 3.78 H Estimated GFR 12 L POC Glucose Random Glucose 157 H Calcium 7.5 L Assessment and Plan - Assessment (1) ESRD (end stage renal disease) Code(s): N18.6 - End stage renal disease Status: Chronic - Plan POD#1 s/p L BC AVF clear for d/c today RTC 2-3 weeks
[2018-09-27] MEDS: hydrALAZINE 25 MG Tablet PO SCH (08:35)
[2018-09-27] MEDS: amLODIPine 5 MG Tablet PO SCH (08:35)
[2018-09-27] MEDS: Insulin NovoLOG Aspart Correctional Sugar Inj SQ SCH ×2 (08:35→13:25)
[2018-09-27] MEDS: Senna/Docusate Sodium 8.6/50 MG Tablet PO SCH (08:36)
--- NOTE | 2018-09-27 10:58 | P.PNFP ---
Subjective Interval history: 58-year-old female with a history of liver cirrhosis, CKD, diabetes, hypertension admitted with 1 day history of altered mental status and also found to have acute on chronic renal injury. Altered mental status resolved quickly after admission, but kidney function slowly declined prompting continued hospital stay for dialysis. Today she feels well. AVF site healing without pain or swelling. Tolerating diet. Hopes to go home today. <Allen Samuel Pacheco S - 09/27/18 10:58> Results - Labs Result diagrams: 09/23/18 09:02 09/27/18 04:19 <Tamica Batres - 09/28/18 10:55> Abnormal lab results 09/26/18 09/27/18 09/27/18 Range/Units 21:38 04:19 08:30 Sodium 134 L (136-145) meq/L BUN 26 H (7-18) mg/dL Creatinine 3.78 H (0.50-1.00) mg/dL Estimated GFR 12 L (>89) mL/min POC Glucose 267 H 147 H (68-110) mg/dl Random Glucose 157 H (74-106) mg/dL Calcium 7.5 L (8.5-10.1) mg/dL BMP 09/27/18 04:19 Sodium 134 L Potassium 3.9 Chloride 101 Carbon Dioxide 22.2 BUN 26 H Creatinine 3.78 H Calcium 7.5 L <Allen Samuel Pacheco S - 09/27/18 10:58> Physical Exam Vital signs: Intake & Output 09/27/18 09/28/18 09/28/18 18:59 06:59 18:59 Output Total 1999 Balance -1999 Output: Hemodialysis Amount 1999 Other: Date of Last Bowel Movement 09/25/18 <Tamica Batres M - 09/28/18 10:55> Vital Signs 09/26/18 12:00 09/26/18 16:08 09/26/18 16:15 Temperature 97.9 F 97.5 F L 97.5 F L Pulse Rate 65 74 72 Respiratory Rate 16 16 14 Blood Pressure 121/57 L 139/64 137/63 Pulse Oximetry 96 100 100 09/26/18 16:30 09/26/18 16:45 09/26/18 17:00 Temperature Pulse Rate 70 68 69 Respiratory Rate 12 11 L 14 Blood Pressure 126/61 117/58 L 126/60 Pulse Oximetry 97 98 97 09/26/18 17:30 09/26/18 19:10 09/26/18 23:30 Temperature 97.3 F L 97.2 F L 97.6 F Pulse Rate 65 71 73 Respiratory Rate 14 18 18 Blood Pressure 136/61 124/60 128/58 L Pulse Oximetry 95 95 97 09/27/18 04:10 09/27/18 08:00 09/27/18 08:13 Temperature 97.2 F L 97.8 F Pulse Rate 75 77 Respiratory Rate 19 16 Blood Pressure 149/67 H 133/62 Pulse Oximetry 96 96 98 Intake & Output 09/26/18 09/27/18 09/27/18 18:59 06:59 18:59 Intake Total 250 / 250 1200 / 1200 Output Total 10 Balance 240 / 240 1200 / 1200 Weight 71 kg 71 kg Intake: Oral 1200 / 1200 Anesthesia Amount 250 / 250 Output: Estimated Blood Loss Other: # Voids 3 Date of Last Bowel Movement 09/25/18 09/26/18 09/25/18 # Bowel Movements 0 <Villa R3,Samuel S - 09/27/18 10:58> - Constitutional no acute distress, average body habitus, cooperative <Villa R3,Samuel S - 10:58> - Routine HEENT Exam Head: Present: normocephalic, atraumatic <Villa R3,Samuel S - 09/27/18 10:58> ENT: Present: mucous membranes moist <Villa R3,Samuel S - 09/27/18 10:58> - Routine Respiratory Exam Present: CTA bilaterally. Absent: accessory muscle use, wheezes, crackles < Villa R3,Samuel S - 09/27/18 10:58> - Routine Cardiovascular Exam Present: RRR, S1, S2. Absent: murmur <Villa R3,Samuel S - 09/27/18 10:58> - Routine Abdominal Exam Present: soft <Villa R3,Samuel S - 09/27/18 10:58> - Routine Neurological Exam Present: alert, moving all extremities, normal speech. Absent: altered mental status <Villa R3,Samuel S - 09/27/18 10:58> - Detailed Neurological Exam: Coma Scale Eye Opening: Spontaneous <Samuel Welsh - 09/27/18 10:58> Verbal Response: Oriented <Samuel Welsh - 09/27/18 10:58> Motor Response: Obey commands <Samuel Welsh S - 09/27/18 10:58> Percy Coma Scale Total: 15 <Samuel Welsh - 09/27/18 10:58> - Routine Psychiatric Exam Present: normal affect <Samuel Welsh - 09/27/18 10:58> Assessment and Plan - Assessment (1) Yoope-kh-jbvimyk kidney injury Code(s): N17.9 - Acute kidney failure, unspecified; N18.9 - Chronic kidney disease, unspecified Status: Acute (2) Diabetes mellitus Code(s): E11.9 - Type 2 diabetes mellitus without complications Status: Acute (3) Hypertension Code(s): I10 - Essential (primary) hypertension Status: Acute (4) Cirrhosis of liver Code(s): K74.60 - Unspecified cirrhosis of liver Status: Chronic (5) Nutrition, metabolism, and development symptoms Code(s): R63.8 - Other symptoms and signs concerning food and fluid intake Status: Acute <Tamica Batres - 09/28/18 10:55> (1) Qrqih-oo-nidoztb kidney injury Code(s): N17.9 - Acute kidney failure, unspecified; N18.9 - Chronic kidney disease, unspecified Status: Acute Plan: she is having dialysis here in the hospital and tolerating this well. Reports prior baseline at GFR of 22. Improving. 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 Has 90% interstitial sclerosis UA with hematuria and proteinuria Hypoalbuminemia Urine Na 113 Urine Osm 392 Complement levels normal MELE screen positive, titer mild at 1:40, speckled pattern Anti-dsDNA negative ANCA studies negative Anemia: Hgb stable around 9 on 09/23, asymptomatic Nephrology consulted, appreciate assistance Strict I/O Address HTN as below Will benefit from outpatient addition of HEIDI-I or ARB HD today Vascular surgery consulted, appreciate assistance POD 1 s/p L BC AVF Cleared for discharge, f/u in 2-3 weeks (2) Diabetes mellitus Code(s): E11.9 - Type 2 diabetes mellitus without complications Status: Acute Plan: Known history of diabetes, takes insulin glargine 10 units at night BG at hospital target at the moment with SSI Continue Low-dose sliding scale Target BG 140-180 Resume Lantus on DC (3) Hypertension Code(s): I10 - Essential (primary) hypertension Status: Acute Plan: BP now much closer to goal (target for her < 140/90 given CKD) EKG showed sinus bradycardia, heart rate 53, no ST changes -Continuing home amlodipine (increased to 5 mg BID); will change to 10 mg daily on DC -Continue Coreg to 3.125 PO BID instead of 6.25 daily (decreased due to bradycardia which has now resolved) -Continue Hydralazine 25 mg PO TID (4) Cirrhosis of liver Code(s): K74.60 - Unspecified cirrhosis of liver Status: Chronic Plan: Known history of liver cirrhosis, known history of hepatitis C s/p treatment with antiviral Liver enzymes, bilirubin within normal limits -Monitor clinically, repeat LFTs as indicated -Per dialysis center request checked Hep profile (showed Hep C Ab only) -HCV RNA test pending; per pt she was treated to cure (5) Nutrition, metabolism, and development symptoms Code(s): R63.8 - Other symptoms and signs concerning food and fluid intake Status: Acute Plan: Encouraging p.o. intake Renal diet <Allen PachecoSamy S - 09/27/18 10:54> - Assessment and Plan Discharge Planning: Home today pending appt for outpatient dialysis tomorrow/Monday. Appreciate assistance of Nephrology team and CM in coordinating care. Also will need home health PT on discharge, referral placed, appreciate CM assistance with this as well. <Allen PachecoSamy S - 09/27/18 10:58> - Attending Attestation The exam, history, and the medical decision-making described in the above note were completed with the assistance of the resident physician. I reviewed and agree with the findings presented. I attest that I had a xdmc-ry-acls encounter with the patient on the same day, and personally performed and documented my assessment and findings in the medical record. doing very well. very happy to be going home <Tamica Batres M - 09/28/18 10:55> <Samuel Welsh S - Last Filed: 09/27/18 10:54> (1) Afiso-bj-bsyvrmz kidney injury Qualifiers: Acute renal failure type: unspecified Chronic kidney disease stage: stage 5, not on chronic dialysis Qualified Code(s): N17.9 - Acute kidney failure, unspecified; N18.5 - Chronic kidney disease, stage 5 (2) Diabetes mellitus Qualifiers: Diabetes mellitus type: type 2 Diabetes mellitus control specialist insulin use: with control specialist use Diabetes mellitus complication status: with kidney complications Diabetes mellitus complication detail: with chronic kidney disease Chronic kidney disease stage: stage 5, not on chronic dialysis Qualified Code(s): E11.22 - Type 2 diabetes mellitus with diabetic chronic kidney disease; N18.5 - Chronic kidney disease, stage 5; Z79.4 - crusher (current) use of insulin (3) Hypertension Qualifiers: Hypertension type: essential hypertension Qualified Code(s): I10 - Essential (primary) hypertension (4) Cirrhosis of liver Qualifiers: Hepatic cirrhosis type: other cirrhosis Qualified Code(s): K74.69 - Other cirrhosis of liver <Tamica Batres - Last Filed: 09/28/18 10:55> (1) Biyvg-vs-vlizcgt kidney injury Qualifiers: Acute renal failure type: unspecified Chronic kidney disease stage: stage 5, not on chronic dialysis Qualified Code(s): N17.9 - Acute kidney failure, unspecified; N18.5 - Chronic kidney disease, stage 5 (2) Diabetes mellitus Qualifiers: Diabetes mellitus type: type 2 Diabetes mellitus control specialist insulin use: with chcf use Diabetes mellitus complication status: with kidney complications Diabetes mellitus complication detail: with chronic kidney disease Chronic kidney disease stage: stage 5, not on chronic dialysis Qualified Code(s): E11.22 - Type 2 diabetes mellitus with diabetic chronic kidney disease; N18.5 - Chronic kidney disease, stage 5; Z79.4 - crusher (current) use of insulin (3) Hypertension Qualifiers: Hypertension type: essential hypertension Qualified Code(s): I10 - Essential (primary) hypertension (4) Cirrhosis of liver Qualifiers: Hepatic cirrhosis type: other cirrhosis Qualified Code(s): K74.69 - Other cirrhosis of liver <Samuel Welsh S - Last Filed: 09/27/18 10:54> (1) Tncif-ae-mywcvgz kidney injury Qualifiers: Acute renal failure type: unspecified Chronic kidney disease stage: stage 5, not on chronic dialysis Qualified Code(s): N17.9 - Acute kidney failure, unspecified; N18.5 - Chronic kidney disease, stage 5 (2) Diabetes mellitus Qualifiers: Diabetes mellitus type: type 2 Diabetes mellitus control specialist insulin use: with control specialist use Diabetes mellitus complication status: with kidney complications Diabetes mellitus complication detail: with chronic kidney disease Chronic kidney disease stage: stage 5, not on chronic dialysis Qualified Code(s): E11.22 - Type 2 diabetes mellitus with diabetic chronic kidney disease; N18.5 - Chronic kidney disease, stage 5; Z79.4 - crusher (current) use of insulin (3) Hypertension Qualifiers: Hypertension type: essential hypertension Qualified Code(s): I10 - Essential (primary) hypertension (4) Cirrhosis of liver Qualifiers: Hepatic cirrhosis type: other cirrhosis Qualified Code(s): K74.69 - Other cirrhosis of liver <Tamica Batres M - Last Filed: 09/28/18 10:55> (1) Yfcyg-aj-claajxh kidney injury Qualifiers: Acute renal failure type: unspecified Chronic kidney disease stage: stage 5, not on chronic dialysis Qualified Code(s): N17.9 - Acute kidney failure, unspecified; N18.5 - Chronic kidney disease, stage 5 (2) Diabetes mellitus Qualifiers: Diabetes mellitus type: type 2 Diabetes mellitus chcf insulin use: with control specialist use Diabetes mellitus complication status: with kidney complications Diabetes mellitus complication detail: with chronic kidney disease Chronic kidney disease stage: stage 5, not on chronic dialysis Qualified Code(s): E11.22 - Type 2 diabetes mellitus with diabetic chronic kidney disease; N18.5 - Chronic kidney disease, stage 5; Z79.4 - crusher (current) use of insulin (3) Hypertension Qualifiers: Hypertension type: essential hypertension Qualified Code(s): I10 - Essential (primary) hypertension (4) Cirrhosis of liver Qualifiers: Hepatic cirrhosis type: other cirrhosis Qualified Code(s): K74.69 - Other cirrhosis of liver
[2018-09-27] MEDS: Heparin 10,000 UNITS/10 ML Vial (for IV use) OTHER PRN (12:10)
--- NOTE | 2018-09-27 14:03 | P.DS ---
Date of admission: 09/15/18 18:17 Primary care physician: [facility] Brief History from admission: Ms Ellison is a 58-year-old female with a history of hypertension, CKD, liver cirrhosis, diabetes, anxiety, known congenital heart murmur, history of hepatitis C who presented to the emergency room for altered mental status. Patient's sister and xfqfwbi-hd-ixx are present who assist in providing history. Patient was in her normal state of health recently went on a trip to [place] with her sister and ncgcynj-mp-wwk. They drove home from [place] the day before admission with no complications and patient went to her own condo on the night prior to admission with normal mentation. During the trip she did have a mechanical fall and injured her jaw but didn't have any change in mentation. The sister reports that the patient normally texts her morning BP, BG to her but she failed to do so the morning of admission. This is unusual for her so the sister began to text questions and the patient's responses were very confusing and did not make sense. At that time the sister went to evaluate the patient and she was found to be confused. The patient seemed to have difficulty finding words/verbalizing words and was having poor recollection of the events from the most recent trip. There was no notable facial droop, abnormal weakness or other findings at that time. At baseline she has LLE weakness compared to the R and that hasn't changed dramatically. Otherwise no noticed focal area of weakness/change in sensation No fevers, no significant cough, SOB, chest pain, sore throat, she does have a history of occasional abdominal distention/swelling which is present but not as bad as it has been, no new abdominal pain. She feels edematous in her hands/ legs. No dysuria or malodorous urine Has hepatitis C, treated with Harvoni several years ago with reported cure. Subsequently developed liver cirrhosis, DM, kidney disease. She is followed by the [facility] and sees a grape crusher there who told her that her kidneys were functioning at 20% of what they should be. She was admitted before for an increased ammonia level that caused confusion however this time her ammonia level is fine. According to her sister who was in the room, our pt is stable to improving. Nephrology has been consulted. PMH: HTN, hepatitis C, diabetes, liver cirrhosis, CKD, depression Psurgical: hysterectomy, renal biopsy Family hx: congenital heart murmurs Social: Lives alone in a condo in [place]. Her sister and fhhxgij-as-mxo live in a condo nearby. No alcohol, tobacco, drugs Patient update on day of discharge: 58-year-old female with a history of liver cirrhosis, CKD, diabetes, hypertension admitted with 1 day history of altered mental status and also found to have acute on chronic renal injury. Altered mental status resolved quickly after admission, but kidney function slowly declined prompting continued hospital stay for dialysis. Today she feels well. AVF site healing without pain or swelling. Tolerating diet. Hopes to go home today. DS: Diagnosis - Discharge Diagnosis (1) Dtprh-zj-sdlszfr kidney injury Status: Acute (2) Diabetes mellitus Status: Acute (3) Hypertension Status: Acute (4) Cirrhosis of liver Status: Chronic (5) Nutrition, metabolism, and development symptoms Status: Acute DS: Medications - Discharge Medications Prescriptions: amlodipine 10 mg PO DAILY #30 tab bumetanide 1 tab PO DIRECTED #60 tab carvedilol [Coreg] 3.125 mg PO BID #60 tab hydralazine 25 mg PO TID #90 tab DS: Summary Hospital Course: Admitted for acute on chronic renal failure and altered mental status attributed to renal disease. Initially also had pleural effusion suspected to be due to volume status. Diuresis improved clinical symptoms, however renal function deteriorated. Nephrology was consulted who recommended dialysis. Renal biopsy showed severe (>90%) glomerulosclerosis. Due to degree of renal disease on biopsy, vascular surgery was consulted who performed AVF placement in the [facility]. On POD 1 from AVF placement, patient was medically stable and cleared for DC by vascular and nephrology teams. She has outpatient dialysis arranged and will need follow up with her PCP and a grape crusher. - Time Spent with Patient Total time spent providing and/or coordinating discharge services: Less than 30 minutes - Quality: VTE Deep Vein Thrombosis/Pulmonary Embolism Present on Admission: No Exam Vital signs: Vital Signs 09/26/18 16:08 09/26/18 16:15 09/26/18 16:30 Temperature 97.5 F L 97.5 F L Pulse Rate 74 72 70 Respiratory Rate 16 14 12 Blood Pressure 139/64 137/63 126/61 Pulse Oximetry 100 100 97 09/26/18 16:45 09/26/18 17:00 09/26/18 17:30 Temperature 97.3 F L Pulse Rate 68 69 65 Respiratory Rate 11 L 14 14 Blood Pressure 117/58 L 126/60 136/61 Pulse Oximetry 98 97 95 09/26/18 19:10 09/26/18 23:30 09/27/18 04:10 Temperature 97.2 F L 97.6 F 97.2 F L Pulse Rate 71 73 75 Respiratory Rate 18 18 19 Blood Pressure 124/60 128/58 L 149/67 H Pulse Oximetry 95 97 96 09/27/18 08:00 09/27/18 08:13 Temperature 97.8 F Pulse Rate 77 Respiratory Rate 16 Blood Pressure 133/62 Pulse Oximetry 96 98 Intake & Output 09/26/18 09/27/18 09/27/18 18:59 06:59 18:59 Intake Total 250 / 250 1200 / 1200 Output Total Balance 240 / 240 1200 / 1200 Weight 71 kg 71 kg Intake: Oral 1200 / 1200 Anesthesia Amount 250 / 250 Output: Estimated Blood Loss Other: # Voids 3 Date of Last Bowel Movement 09/25/18 09/26/18 09/25/18 # Bowel Movements 0 Narrative: - Constitutional no acute distress, average body habitus, cooperative - Routine HEENT Exam Head: Present: normocephalic, atraumatic ENT: Present: mucous membranes moist - Routine Respiratory Exam Present: CTA bilaterally. Absent: accessory muscle use, wheezes, crackles - Routine Cardiovascular Exam Present: RRR, S1, S2. Absent: murmur - Routine Abdominal Exam Present: soft - Routine Neurological Exam Present: alert, moving all extremities, normal speech. Absent: altered mental status - Detailed Neurological Exam: Coma Scale Eye Opening: Spontaneous Verbal Response: Oriented Motor Response: Obey commands Percy Coma Scale Total: 15 - Routine Psychiatric Exam Present: normal affect Results Procedures completed during hospitalization: Renal biopsy - 09/20/18 RIJ PermCath placement - 09/20/18 Left BC AVF - 09/26/18 Pending studies at discharge: HCV viral PCR Labs on day of discharge: Labs from last 24 hours 09/27/18 09/27/18 09/26/18 08:30 04:19 21:38 Sodium 134 L Potassium 3.9 Chloride 101 Carbon Dioxide 22.2 Anion Gap 11 BUN 26 H Creatinine 3.78 H Estimated GFR 12 L POC Glucose 147 H 267 H Random Glucose 157 H Calcium 7.5 L 09/26/18 09/26/18 17:34 16:20 Sodium Potassium Chloride Carbon Dioxide Anion Gap BUN Creatinine Estimated GFR POC Glucose 96 86 Random Glucose Calcium - Impressions ITS Impressions Head CT 09/15/18 15:59 CONCLUSION: Unremarkable study. Chest X-Ray 09/15/18 16:01 CONCLUSION: Small left pleural effusion not present previously with slight consolidation and/or compressive collapse left lung base medially. Chest CT 09/15/18 17:00 CONCLUSION: 1. Bilateral pleural effusions worse on the left with slight left lung base compressive collapse. 2. Cholelithiasis. 3. Cirrhotic liver with moderate amount of ascites upper abdomen. Abdomen/Bladder Ultrasound 09/16/18 00:00 CONCLUSION: 1. Cholelithiasis and ascites. Catheter Placement 09/20/18 00:00 CONCLUSION: 1. Uncomplicated line placement as above. Renal Biopsy CT 09/20/18 09:13 CONCLUSION: 1. Uncomplicated CT guided right renal biopsy for function. Upper Extremity Ultrasound 09/22/18 00:00 CONCLUSION: 1. Venous mapping was performed as described above. 2. Nonocclusive thrombus is noted within the left cephalic vein in the upper arm. Venous Doppler Study 09/22/18 00:00 CONCLUSION: 1. Nonocclusive thrombus within the left cephalic vein in the upper arm. 2. No evidence of deep venous thrombosis within the right upper extremity. Discharge Plan - Discharge Disposition Patient Disposition: /Home Health Service - Discharge Condition Condition: Good - Discharge Order Discharge Orders: Discharge Order (Routine); Ordered 09/27/18 Ordered By: Samuel Villa Vascular Surgery Clear for Discharge (Routine); Ordered 09/27/18 Ordered By: Pablo Kennedy - Discharge Details Anticipated Discharge Date: 09/27/18 - Physicians Team Primary Care Provider: [facility],Physician 's Attending Provider: Tamica Batres Other Providers: Silas Forrest MD ; Pablo Kennedy MD
--- NOTE | 2018-09-27 16:39 | P.PNNP ---
Subjective Interval history: Patient is alert, no SOB, no pain in left hand. Physical Exam Vital signs: Vital Signs 09/26/18 16:45 09/26/18 17:00 09/26/18 17:30 Temperature 97.3 F L Pulse Rate 68 69 65 Respiratory Rate 11 L 14 14 Blood Pressure 117/58 L 126/60 136/61 Pulse Oximetry 98 97 95 09/26/18 19:10 09/26/18 23:30 09/27/18 04:10 Temperature 97.2 F L 97.6 F 97.2 F L Pulse Rate 71 73 75 Respiratory Rate 18 18 19 Blood Pressure 124/60 128/58 L 149/67 H Pulse Oximetry 95 97 96 09/27/18 08:00 09/27/18 08:13 Temperature 97.8 F Pulse Rate 77 Respiratory Rate 16 Blood Pressure 133/62 Pulse Oximetry 96 98 Intake & Output 09/26/18 09/27/18 09/27/18 18:59 06:59 18:59 Intake Total 250 / 250 1200 / 1200 Output Total 1999 Balance 240 / 240 1200 / 1200 -1999 Weight 71 kg 71 kg Intake: Oral 1200 / 1200 Anesthesia Amount 250 / 250 Output: Hemodialysis Amount 1999 Estimated Blood Loss Other: # Voids 3 Date of Last Bowel Movement 09/25/18 09/26/18 09/25/18 # Bowel Movements 0 Narrative: - Constitutional no acute distress, average body habitus, cooperative - Routine HEENT Exam Head: Present: normocephalic, atraumatic ENT: Present: mucous membranes moist - Routine Respiratory Exam Present: CTA bilaterally. Absent: accessory muscle use, wheezes, crackles - Routine Cardiovascular Exam Present: RRR, S1, S2. Absent: murmur - Routine Abdominal Exam Present: soft - Routine Neurological Exam Present: alert, moving all extremities, normal speech. Absent: altered mental status - Detailed Neurological Exam: Coma Scale Eye Opening: Spontaneous Verbal Response: Oriented Motor Response: Obey commands [place] Coma Scale Total: 15 - Routine Psychiatric Exam Present: normal affect Assessment and Plan - Assessment (1) [id number] kidney injury Code(s): N17.9 - Acute kidney failure, unspecified; N18.9 - Chronic kidney disease, unspecified Status: Acute Qualifiers: Acute renal failure type: unspecified Chronic kidney disease stage: stage 5 , not on chronic dialysis Qualified Code(s): N17.9 - Acute kidney failure, unspecified; N18.5 - Chronic kidney disease, stage 5 Plan: The Kidney Biopsy showing Diabetic Nephropathy with Glomerulosclerosis. Has 90% interstitial sclerosis. Apparent ESRD now, has tunneled catheter in place outpatient dialysis arrangements in place Consulted social work instructor for arrangements for dialysis placement. seen by Vascular, AVF done on 09/26. HD was done today, tolerated well. Patient now for discharge. Next HD will be out patient on Monday, No HD on Mon, Mon and Monday, told to restrict fluid and K intake. I will follow her as out patient.. (2) Diabetes mellitus Code(s): E11.9 - Type 2 diabetes mellitus without complications Status: Acute Qualifiers: Diabetes mellitus type: type 2 Diabetes mellitus prison insulin use: with manager terminal use Diabetes mellitus complication status: with kidney complications Diabetes mellitus complication detail: with chronic kidney disease Chronic kidney disease stage: stage 5, not on chronic dialysis Qualified Code(s): E11.22 - Type 2 diabetes mellitus with diabetic chronic kidney disease; N18.5 - Chronic kidney disease, stage 5; Z79.4 - intermediate ( current) use of insulin Plan: Maintain blood sugars between 140 mg/dl to 180 mg/dl while hospitalized. Has SS available. Well controlled. (3) Hypertension Code(s): I10 - Essential (primary) hypertension Status: Acute Qualifiers: Hypertension type: essential hypertension Qualified Code(s): I10 - Essential (primary) hypertension Plan: Better controlled. On amlodipine, hydralazine, and coreg.
== END 2018-09-27 16:37 | disposition home or self-care (01) ==
LOC: NEPC 15:34 → NEDA 18:17 → N06 21:45
PROVIDERS: ADMIT Family Medicine; ATTEND Family Medicine
PROC: AVGFTUE (ICD-10-PCS; 2018-09-26 14:55)